=== PATIENT | female | born 1995 | race Caucasian/White ===

== ENCOUNTER → 2016-11-21 | Outpatient (CLI) | payer MEDICAID ==
[~2016-11-21] MED LIST: ACHD5005 PO; ALBU8.5H2 IH; CEFU500T PO; CEPH500C PO; FERR325T74 PO; HYDR-3729 PO; IBP600T1 PO; IBUP-1773 PO; IRON1TAB89 PO; MAGN250T13 PO; MAGN400T6 PO; MEDR150D8 IM; METO-270 PO; METO-272 PO; ONDA-42 SL; ONDA8TAB13 PO; OXYC-12 PO; PENI500T PO; PHEN200T27 PO; PREN-37 PO; PREN1TAB39 PO; PRM25T PO; TRAM50TA2 PO
--- OUTSIDE RECORDS SUMMARY | 2016-11-21 12:24 | XMS REPORT | Continuity of Care Document ---
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 Frame Nailer Name Role Phone JESÚS ARTEAGA Benjy SURESH PCP Insurance Providers Payer Name Policy Number Subscriber Name Relationship [facility] [id number] Ortiz Vann 18 Self / Same As Patient Advance Directives Directive Response Recorded Date/Time Advance Directives No 02/02/15 4:40am Resuscitation Status Full Code 02/02/15 4:40am Problems Medical Problems Problem Onset Date Status Urinary tract infection Unknown Active Unknown Active Hyperemesis Unknown Active Abdominal pain in female patient Unknown Active Spontaneous in first trimester Unknown Active Spontaneous in first trimester Unknown Active Pelvic pain Unknown Active Vaginal bleeding Unknown Active Pelvic pain Unknown Active Medications Medication Dose Route Sig Days/Qty Instructions Order Date Discontinued Date Status Vits W-Ca,Fe,Fa(<1MG) 1 Each PO 09/22/11 03/28/14 Discontinued Ferrous Sulfate 325 Mg PO 09/22/11 11/01/14 Discontinued Oxycodone Hcl/Acetaminophen 1 - 2 Each PO EVERY 4HRS PRN 01/01/12 Discontinued Ibuprofen 600 Mg PO GIVE EVERY 6 HR ON SCHEDULE PRN 01/01/12 Discontinued Albuterol 1 Puff IH EVERY 4HRS PRN SHORTNESS OF BREATH 1 PUFFS Active Ondansetron 8 Mg PO EVERY 6 HOURS PRN NAUSEA/VOMITING 10 Qty 03/28/14 11/01/14 Discontinued Tramadol Hcl 50 Mg PO EVERY 4HRS PRN PAIN 10 Qty 03/28/14 11/01/14 Discontinued Cephalexin Monohydrate (Keflex) 1 Each PO THREE TIMES A DAY 21 Qty 11/01/14 Discontinued Promethazine Hcl 1 Tab PO FOUR TIMES DAILY PRN NAUSEA/VOMITING 14 Qty 10/29/14 11/01/14 Discontinued Ibuprofen 600 Mg PO GIVE EVERY 6 HR ON SCHEDULE 40 Qty 11/01/14 Discontinued Hydrocodone/Acetaminophen 1 Each PO EVERY 6 HOURS For Pain 15 Qty 11/0102/02/15 Discontinued Penicillin V Potassium 1 Tab PO THREE TIMES A DAY 30 Qty 11/01/14 Discontinued Phenazopyridine HCl 1 Each PO THREE TIMES A DAY 9 Qty 11/01/14 Discontinued Tramadol Hcl 50-100 Mg PO EVERY 6 HOURS PRN PAIN 20 Qty 11/08/1402/02 Discontinued Medroxyprogesterone Acet 150 Mg IM 02/02/15 Active Acetaminophen/Hydrocodone Bitart (Hydrocodone/APAP 5/325mg) 1-2 Tab PO EVERY 6 HOURS PRN PAIN 30 Qty 02/02/15 Active Ondansetron Hcl 4 Mg SL EVERY 4HRS PRN 10 Qty 02/02/15 Active Social History Social History Problem Response Recorded Date/Time Alcohol Use Denies Use 02/02/2015 4:40am Recreational Drug Use No 02/02/2015 4:40am Recent Foreign Travel No 02/02/2015 4:40am Recent Infectious Disease Exposure No 02/02/2015 4:40am Smoking Status Never a Smoker 02/02/2015 4:40am Query Response Start Date Stop Date Smoking Status Never a Smoker Hospital Discharge Instructions No hospital discharge instructions. Plan of Care No plan of care. Functional Status No functional status results. Allergies, Adverse Reactions, Alerts Allergen Type Severity Reaction Status Last Updated jordon ([id number]) Allergy Mild Active 12/30/11 Immunizations Name Given Type Date of Influenza Vaccine 07/06/11 Historical Vital Signs Acute Vital Signs Vital Response Date/Time Temperature (Fahrenheit) 96.6 degrees F (97.6 - 99.5) Temperature Source Temporal Pulse Rate (adult) 100 bpm (60 - 90) Pulse Rate (Adolescent 12-19yrs) 66 bpm (56 - 106) Respiratory Rate (Adolescent 12-19yrs) 16 bpm (15 - 20) Blood Pressure 98/73 mm Hg Blood Pressure Systolic (Adolescent 12-19yrs) 118 mm Hg (115 - 120) Pain Pain Intensity 2 Height (Feet) 5 feet Height (Inches) 4 inches Height (Calculated Centimeters) 162.796416 cm Weight (Pounds) 140 pounds Weight (Calculated Grams) 54590.932 gm Weight (Calculated Kilograms) 63.985996 kilograms Calculated BMI 24.03 Results Laboratory Results Test Name Result Units Flags Reference Collection Date/Time Result Date/ Time Comments Urine Color YELLOW 01/13/2015 10:20pm 01/13/2015 10:55pm Urine Clarity CLEAR 01/13/2015 10:20pm 01/13/2015 10:55pm Urine pH 7 5-9 01/13/2015 10:20pm 01/13/2015 10:55pm Urine Specific [place] 1.010 * 1.016-1.022 01/13/2015 10:20pm 2014 10:55pm Urine Protein NEGATIVE NEGATIVE 01/13/2015 10:20pm 01/13/2015 10: 55pm Urine Glucose (UA) NEGATIVE NEGATIVE 01/13/2015 10:20pm 01/13/2015 10 :55pm Urine RBC (Auto) 5+ * NEGATIVE 01/13/2015 10:20pm 01/13/2015 10:55pm Urine Ketones NEGATIVE NEGATIVE 01/13/2015 10:20pm 01/13/2015 10: 55pm Urine Nitrite NEGATIVE NEGATIVE 01/13/2015 10:20pm 01/13/2015 10: 55pm Urine Bilirubin NEGATIVE NEGATIVE 01/13/2015 10:20pm 01/13/2015 10: 55pm Urine Urobilinogen NORMAL MG/DL NORMAL 01/13/2015 10:20pm 01/13/2015 10 :55pm Urine Leukocyte Esterase 1+ * NEGATIVE 01/13/2015 10:20pm 01/13/2015 10 :55pm Urine RBC 2-5 /HPF * 01/13/2015 10:20pm 01/13/2015 10:55pm Urine WBC 10-25 /HPF * 01/13/2015 10:20pm 01/13/2015 10:55pm Urine Bacteria TRACE /HPF 01/13/2015 10:20pm 01/13/2015 10:55pm Urine Squamous Epithelial Cells 5-10 /HPF 01/13/2015 10:20pm 2014 10:55pm Urine Crystals NONE /LPF 01/13/2015 10:20pm 01/13/2015 10:55pm Urine Casts NONE /LPF 01/13/2015 10:20pm 01/13/2015 10:55pm Urine Mucus NEGATIVE /LPF 01/13/2015 10:20pm 01/13/2015 10:55pm Urine Culture Indicated YES 01/13/2015 10:20pm 01/13/2015 10:55pm White Blood Count 10.4 10^3/uL 4.3-11.0 02/02/2015 5:02/02/2015 5: 34am Red Blood Count 4.63 10^6/uL 4.35-5.85 02/02/2015 5:02/02/2015 5: 34am Hemoglobin 13.3 G/DL 11.5-16.0 02/02/2015 5:02/02/2015 5:34am Hematocrit 39 % 35-52 02/02/2015 5:02/02/2015 5:34am Mean Corpuscular Volume 84 FL 80-99 02/02/2015 5:02/02/2015 5: 34am Mean Corpuscular Hemoglobin 29 PG 25-34 02/02/2015 5:02/02/2015 5: 34am Mean Corpuscular Hemoglobin Concent 34 G/DL 32-36 02/02/2015 5: 5:34am Red Cell Distribution Width 12.9 % 10.0-14.5 02/02/2015 5:2014 5:34am Platelet Count 277 10^3/uL 130-400 02/02/2015 5:02/02/2015 5:34am Mean Platelet Volume 10.5 FL H 7.4-10.4 02/02/2015 5:02/02/2015 5: 34am Neutrophils (%) (Auto) 84 % H 42-75 02/02/2015 5:02/02/2015 5:34am Lymphocytes (%) (Auto) 13 % 12-44 02/02/2015 5:02/02/2015 5:34am Monocytes (%) (Auto) 2 % 0-12 02/02/2015 5:02/02/2015 5:34am Eosinophils (%) (Auto) 1 % 0-10 02/02/2015 5:02/02/2015 5:34am Basophils (%) (Auto) 0 % 0-10 02/02/2015 5:02/02/2015 5:34am Neutrophils # (Auto) 8.8 X 10^3 H 1.8-7.8 02/02/2015 5:02/02/2015 5: 34am Lymphocytes # (Auto) 1.4 X 10^3 1.0-4.0 02/02/2015 5:02/02/2015 5: 34am Monocytes # (Auto) 0.2 X 10^3 0.0-1.0 02/02/2015 5:02/02/2015 5: 34am Eosinophils # (Auto) 0.1 10^3/uL 0.0-0.3 02/02/2015 5:02/02/2015 5 :34am Basophils # (Auto) 0.0 10^3/uL 0.0-0.1 02/02/2015 5:02/02/2015 5: 34am Urine Color YELLOW 02/02/2015 6:02/02/2015 6:34am Urine Clarity SLIGHTLY CLOUDY 02/02/2015 6:02/02/2015 6:34am Urine pH 5 5-9 02/02/2015 6:02/02/2015 6:34am Urine Specific [place] 1.025 * 1.016-1.022 02/02/2015 6:2014 6:34am Urine Protein 2+ * NEGATIVE 02/02/2015 6:02/02/2015 6:34am Urine Glucose (UA) NEGATIVE NEGATIVE 02/02/2015 6:0702/02/2015 6: 34am Urine RBC (Auto) 5+ * NEGATIVE 02/02/2015 6:0702/02/2015 6:34am Urine Ketones NEGATIVE NEGATIVE 02/02/2015 6:07am 02/02/2015 6:34am Urine Nitrite NEGATIVE NEGATIVE 02/02/2015 6:0702/02/2015 6:34am Urine Bilirubin NEGATIVE NEGATIVE 02/02/2015 6:0702/02/2015 6: 34am Urine Urobilinogen NORMAL MG/DL NORMAL 02/02/2015 6:0702/02/2015 6: 34am Urine Leukocyte Esterase 1+ * NEGATIVE 02/02/2015 6:0702/02/2015 6: 34am Urine RBC 25-50 /HPF * 02/02/2015 6:07am 02/02/2015 6:34am Urine WBC 2-5 /HPF 02/02/2015 6:07am 02/02/2015 6:34am Urine Bacteria NONE /HPF 02/02/2015 6:07am 02/02/2015 6:34am Urine Squamous Epithelial Cells 2-5 /HPF 02/02/2015 6:07am 2014 6:34am Urine Crystals PRESENT /LPF * 02/02/2015 6:0702/02/2015 6:34am Urine Amorphous Sediment FEW RICKIE URATES /LPF * 02/02/2015 6:07am 02/02 6:34am Urine Casts NONE /LPF 02/02/2015 6:0702/02/2015 6:34am Urine Mucus MODERATE /LPF * 02/02/2015 6:07am 02/02/2015 6:34am Urine Culture Indicated NO 02/02/2015 6:0702/02/2015 6:34am Sodium Level 137 MMOL/L 135-145 02/02/2015 5:23am 02/02/2015 5:52am Potassium Level 4.0 MMOL/L 3.6-5.0 02/02/2015 5:23am 02/02/2015 5:52am Chloride Level 106 MMOL/L 98-107 02/02/2015 5:23am 02/02/2015 5:52am Carbon Dioxide Level 21 MMOL/L 21-32 02/02/2015 5:02/02/2015 5: 52am Blood Urea Nitrogen 8 MG/DL 7-18 02/02/2015 5:02/02/2015 5:52am Creatinine 0.69 MG/DL 0.60-1.30 02/02/2015 5:02/02/2015 5:52am BUN/Creatinine Ratio 12 02/02/2015 5:02/02/2015 5:52am Estimat Glomerular Filtration Rate > 60 02/02/2015 5:2014 5:52am GFR INTERPRETIVE DATA UNITS FOR ESTIMATED GFR (eGFR): mL/min/1.73 M2 REFERENCE RANGE FOR ESTIMATED GFR (eGFR) eGFR NORMAL eGFR >60 MODERATELY DECREASED eGFR 30-59 SEVERLY DECREASED eGFR 15-29 KIDNEY FAILURE <15 (OR DIALYSIS) Glucose Level 116 MG/DL H 70-105 02/02/2015 5:02/02/2015 5:52am Calcium Level 10.1 MG/DL 8.5-10.1 02/02/2015 5:02/02/2015 5:52am Total Bilirubin 0.4 MG/DL 0.1-1.0 02/02/2015 5:02/02/2015 5:52am Alkaline Phosphatase 65 U/L 40-136 02/02/2015 5:02/02/2015 5:52am Aspartate Amino Transf (AST/SGOT) 33 U/L 5-34 02/02/2015 5:2014 5:52am Alanine Aminotransferase (ALT/SGPT) 14 U/L 0-55 02/02/2015 5:02/02 5:52am Total Protein 8.2 G/DL 6.4-8.2 02/02/2015 5:02/02/2015 5:52am Albumin 4.9 G/DL H 3.2-4.5 02/02/2015 5:02/02/2015 5:52am Procedures No known history of procedures. Encounters Encounter Location Date/Time Departed Emergency Room Via [facility] 02/02/15 4:30am Departed Emergency Room Via [facility] 01/13/15 10:01pm Recent Diagnosis
== END ==
LOC: CARD 12:21
PROVIDERS: ATTEND Obstetrics & Gynecology
DX: O36.8931 Maternal care for other specified fetal problems, third trimester, fetus 1 (principal)
CPT/HCPCS: 93005

== ENCOUNTER → 2016-12-05 | Outpatient (CLI) | payer MEDICAID ==
--- OUTSIDE RECORDS SUMMARY | 2016-12-05 11:39 | XMS REPORT | Continuity of Care Document ---
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 Philosophy Lecturer Name Role Phone JESÚS ARTEAGA Benjy SURESH PCP Insurance Providers Payer Name Policy Number Subscriber Name Relationship [facility] [id number] Ortiz Vann 18 Self / Same As [...] Type Severity Reaction Status Last Updated jordon ([id number]) Allergy Mild Active 12/30/11 Immunizations Name Given [...] Height (Inches) 4 inches Height (Calculated Centimeters) 162.305427 cm Weight (Pounds) 140 pounds Weight (Calculated Grams) 02319.932 gm Weight (Calculated Kilograms) 63.286521 kilograms Calculated BMI 24.03 Results Laboratory Results Test Name Result Units Flags Reference Collection Date/Time Result Date/ Time Comments Urine Color YELLOW 01/13/2015 10:20pm 01/13/2015 10:55pm Urine Clarity CLEAR 01/13/2015 10:20pm 01/13/2015 10:55pm Urine pH 7 5-9 01/13/2015 10:20pm 01/13/2015 10:55pm Urine Specific [place] 1.010 * 1.016-1.022 01/13/2015 10:20pm 2014 10:55pm [...] 5 5-9 02/02/2015 6:02/02/2015 6:34am Urine Specific [place] 1.025 * 1.016-1.022 02/02/2015 6:2014 6:34am Urine [...] Encounter Location Date/Time Departed Emergency Room Via [facility] 02/02/15 4:30am Departed Emergency Room Via [facility] 01/13/15 10:01pm Recent Diagnosis
== END ==
LOC: LAB 11:08
PROVIDERS: ATTEND Internal Medicine Cardiovascular Disease
DX: R00.2 Palpitations (principal); R06.02 Shortness of breath
CPT/HCPCS: 36415; 84443

== ENCOUNTER → 2016-12-11 | Outpatient (CLI) | payer MEDICAID ==
--- OUTSIDE RECORDS SUMMARY | 2016-12-11 08:51 | XMS REPORT | Continuity of Care Document ---
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 Prototype Engineer Name Role Phone JESÚS ARTEAGA Benjy SURESH PCP Insurance Providers Payer Name Policy Number Subscriber Name Relationship [facility] [id number] Ortiz Vann 18 Self / Same As [...] Type Severity Reaction Status Last Updated jordon ([id number]) Allergy Mild Active 12/30/11 Immunizations Name Given [...] Height (Inches) 4 inches Height (Calculated Centimeters) 162.243394 cm Weight (Pounds) 140 pounds Weight (Calculated Grams) 78633.932 gm Weight (Calculated Kilograms) 63.923936 kilograms Calculated BMI 24.03 Results Laboratory Results Test Name Result Units Flags Reference Collection Date/Time Result Date/ Time Comments Urine Color YELLOW 01/13/2015 10:20pm 01/13/2015 10:55pm Urine Clarity CLEAR 01/13/2015 10:20pm 01/13/2015 10:55pm Urine pH 7 5-9 01/13/2015 10:20pm 01/13/2015 10:55pm Urine Specific [place] 1.010 * 1.016-1.022 01/13/2015 10:20pm 2014 10:55pm [...] 5 5-9 02/02/2015 6:02/02/2015 6:34am Urine Specific [place] 1.025 * 1.016-1.022 02/02/2015 6:2014 6:34am Urine [...] Encounter Location Date/Time Departed Emergency Room Via [facility] 02/02/15 4:30am Departed Emergency Room Via [facility] 01/13/15 10:01pm Recent Diagnosis
== END ==
LOC: CARD 08:48
PROVIDERS: ATTEND Internal Medicine Cardiovascular Disease
DX: R00.2 Palpitations (principal); R06.02 Shortness of breath
CPT/HCPCS: 93225; 93226

== ENCOUNTER 2016-12-12 22:04 | Observation (INO) | payer MEDICAID ==
[~2016-12-12] VITALS: Ht 162.6 cm; Wt 74.8 kg
[~2016-12-12 22:04] MED LIST changes: -IBUP-1773 PO; -IRON1TAB89 PO; -MAGN250T13 PO; -MAGN400T6 PO; -METO-270 PO; -METO-272 PO; -PREN-37 PO
--- OUTSIDE RECORDS SUMMARY | 2016-12-12 22:09 | XMS REPORT | Continuity of Care Document ---
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 Microfiche Camera Operator Name Role Phone JESÚS ARTEAGA Benjy SURESH PCP Insurance Providers Payer Name Policy Number Subscriber Name Relationship [facility] [id number] Ortiz Vann 18 Self / Same As [...] Type Severity Reaction Status Last Updated jordon ([id number]) Allergy Mild Active 12/30/11 Immunizations Name Given [...] Height (Inches) 4 inches Height (Calculated Centimeters) 162.736487 cm Weight (Pounds) 140 pounds Weight (Calculated Grams) 45959.932 gm Weight (Calculated Kilograms) 63.786895 kilograms Calculated BMI 24.03 Results Laboratory Results Test Name Result Units Flags Reference Collection Date/Time Result Date/ Time Comments Urine Color YELLOW 01/13/2015 10:20pm 01/13/2015 10:55pm Urine Clarity CLEAR 01/13/2015 10:20pm 01/13/2015 10:55pm Urine pH 7 5-9 01/13/2015 10:20pm 01/13/2015 10:55pm Urine Specific [place] 1.010 * 1.016-1.022 01/13/2015 10:20pm 2014 10:55pm [...] 5 5-9 02/02/2015 6:02/02/2015 6:34am Urine Specific [place] 1.025 * 1.016-1.022 02/02/2015 6:2014 6:34am Urine [...] Encounter Location Date/Time Departed Emergency Room Via [facility] 02/02/15 4:30am Departed Emergency Room Via [facility] 01/13/15 10:01pm Recent Diagnosis
[2016-12-12 22:32] VITALS: BP 102/68
[2016-12-12 23:03] LABS: BASOPHILS % (AUTO) 0 % (0-10); EOSINOPHILS # (AUTO) 0.1 10^3/uL (0.0-0.3); EOSINOPHILS % (AUTO) 1 % (0-10); LYMPHOCYTES # (AUTO) 2.7 X 10^3 (1.0-4.0); LYMPHOCYTES % (AUTO) 26 % (12-44); MEAN CORPUSCULAR HEMOGLOBIN 31 PG (25-34); MEAN CORPUSCULAR HGB CONC 34 G/DL (32-36); MEAN CORPUSCULAR VOLUME 91 FL (80-99); MEAN PLATELET VOLUME 10.4 FL (7.4-10.4); MONOCYTES # (AUTO) 0.5 X 10^3 (0.0-1.0); MONOCYTES % (AUTO) 5 % (0-12); NEUTROPHILS # (AUTO) 7.1 X 10^3 (1.8-7.8); NEUTROPHILS % (AUTO) 68 % (42-75); PLATELET COUNT 252 10^3/uL (130-400); RED BLOOD COUNT 3.42 10^6/uL (4.35-5.85); RED CELL DISTRIBUTION WIDTH 13.8 % (10.0-14.5); WHITE BLOOD COUNT 10.5 10^3/uL (4.3-11.0)
[2016-12-12] MEDS ORDERED: PREN-37 PO (23:05)
[2016-12-12] MEDS ORDERED: IRON1TAB89 PO (23:06)
[2016-12-12] MEDS ORDERED: MAGN250T13 PO (23:07)
[2016-12-12 23:27] LABS: ALANINE AMINOTRANSFERASE 8 U/L (0-55); ALBUMIN 3.5 G/DL (3.2-4.5); ANION GAP 10 MMOL/L (5-14); ASPARTATE AMINO TRANSFERASE 24 U/L (5-34); BILIRUBIN,TOTAL 0.4 MG/DL (0.1-1.0); BLOOD UREA NITROGEN 5 MG/DL (7-18); BUN/CREATININE RATIO 9; CALCIUM 8.7 MG/DL (8.5-10.1); CARBON DIOXIDE 19 MMOL/L (21-32); CHLORIDE 107 MMOL/L (98-107); CREATININE SERUM 0.58 MG/DL (0.60-1.30); GFR ESTIMATED > 60; GLUCOSE 88 MG/DL (70-105); MAGNESIUM 1.8 MG/DL (1.8-2.4); POTASSIUM 3.9 MMOL/L (3.6-5.0); SODIUM 136 MMOL/L (135-145); TOTAL PROTEIN 6.2 G/DL (6.4-8.2)
[2016-12-13 00:50] VITALS: BP 97/59
[2016-12-13 05:05] VITALS: BP 100/64
[2016-12-13] MEDS ORDERED: FLU TRIvalent (5 YOA+) 2016-17 (AFLURIA) 0.5 ML IM ONE (07:00)
[2016-12-13 08:00] VITALS: BP 104/70
--- NOTE | 2016-12-13 08:13 | History & Physical-OB ---
OB - Chief Complaint & HPI Date Date of Admission: Date of Admission: Dec 12, 2016 at 22:04 Chief Complaint/History OB-Reason for Admission/Chief: spontaneous v tach Hx : 4 Hx Para: 1 Expected Date of Delivery: Jan 27, 2017 Gestational Age in Weeks: 33 Admission Nurse Assessment Rev: Yes Other Patient is a at 33 weeks. She was complaining in the office of palpitations and dyspnea. EKG showed sinus rhythm. She was sent to see Dr. Bruno for evaluation. Had a Holter monitor read last night and Dr. Bruno was notified of episodes of sustained V tach. He recommended admission for telemetry and overnight evaluation. CMP, BNP and Mg done and were normal. Had echo yesterday but not yet read. Dr. Bruno will see her today but she will likely require evaluation by [facility] and referred to a [facility] tertiary care center where there is an EP physician. (Possibly [facility]). Laboratory Tests Test 12/12/16 22:47 Range/Units Alanine Aminotransferase (ALT/SGPT) 8 0-55 U/L Albumin 3.5 3.2-4.5 G/DL Alkaline Phosphatase 104 40-136 U/L Anion Gap 10 5-14 MMOL/L Aspartate Amino Transf (AST/SGOT) 24 5-34 U/L B-Type Natriuretic Peptide 16.2 <100.0 PG/ML BUN/Creatinine Ratio 9 Basophils # (Auto) 0.0 0.0-0.1 10^3/uL Basophils (%) (Auto) 0 0-10 % Blood Urea Nitrogen 5 L 7-18 MG/DL Calcium Level 8.7 8.5-10.1 MG/DL Carbon Dioxide Level 19 L 21-32 MMOL/L Chloride Level 107 98-107 MMOL/L Creatinine 0.58 L 0.60-1.30 MG/DL Eosinophils # (Auto) 0.1 0.0-0.3 10^3/uL Eosinophils (%) (Auto) 1 0-10 % Estimat Glomerular Filtration Rate > 60 Glucose Level 88 70-105 MG/DL Hematocrit 31 L 35-52 % Hemoglobin 10.6 L 11.5-16.0 G/DL Lymphocytes # (Auto) 2.7 1.0-4.0 X 10^3 Lymphocytes (%) (Auto) 26 12-44 % Magnesium Level 1.8 1.8-2.4 MG/DL Mean Corpuscular Hemoglobin 31 25-34 PG Mean Corpuscular Hemoglobin Concent 34 32-36 G/DL Mean Corpuscular Volume 91 80-99 FL Mean Platelet Volume 10.4 7.4-10.4 FL Monocytes # (Auto) 0.5 0.0-1.0 X 10^3 Monocytes (%) (Auto) 5 0-12 % Neutrophils # (Auto) 7.1 1.8-7.8 X 10^3 Neutrophils (%) (Auto) 68 42-75 % Platelet Count 252 130-400 10^3/uL Potassium Level 3.9 3.6-5.0 MMOL/L Red Blood Count 3.42 L 4.35-5.85 10^6/uL Red Cell Distribution Width 13.8 10.0-14.5 % Sodium Level 136 135-145 MMOL/L Total Bilirubin 0.4 0.1-1.0 MG/DL Total Protein 6.2 L 6.4-8.2 G/DL White Blood Count 10.5 4.3-11.0 10^3/uL Allergies and Home Medications Allergies Coded Allergies: guaifenesin (Verified Allergy, Mild, 12/30/11) Home Medications Iron,Carbonyl/Ascorbic Acid 1 Each Tablet 1 EACH PO DAILY (Reported) Magnesium Oxide 250 Mg Tablet 250 MG PO DAILY (Reported) Vit/Iron Fumarate/FA 1 Each Tablet 1 EACH PO DAILY (Reported) OB - History Hx of Present Care: Yes Ultrasounds: Normal mid trimester US Obstetrical Complications: None Medical Complications: Cardiovascular Information Induced Hypertension: No Maternal Gestational Diabetes: No Hemorrhage: No Obstetrical History Hx : 4 Hx Para: 1 Hx Termination: No Hx Total # of Abortions (Spona: 2 Hx Multiple Gestation: No Hx Stillbirth: No Hx Complication: No Hx Induced Hypertens: No Hx Maternal Gestational Diabet: No Delivery History Hx Dystocia: No Hx Large For Gestational Age I: No Hx Small for Gestational Age I: No Hx Section: No Hx Vaginal Delivery Post C-Sec: No Hx Blood Disorders: No Adverse Rxn to Tranfusion: No Patient Past Medical History NC Social History/Family History Recent Infectious Disease Expo: No Alcohol Use: Regular Use (prior to but none since + HCG) Smoking Cessation: Former smoker (quit 2010) Immunizations Date of Influenza Vaccine: Jul 06, 2011 OB - Admission Exam Physical Exam Vitals: Vital Signs 12/13/16 05:05 Temp 97.4 Pulse 100 Resp 18 B/P 100/64 Pulse Ox 97 O2 Delivery Room Air HEENT: NCAT Heart: Rhythm Normal Lungs: Clear, Equal Abdomen: Gravid Heart Rate: 140's Accelerations: Accelerations Present Decelerations: No Decelerations Short Term Variability: Present Netezza Architect Variability: Average (6-25) Contractions on Admission: None Labs Laboratory Tests Test 12/12/16 22:47 Range/Units Alanine Aminotransferase (ALT/SGPT) 8 0-55 U/L Albumin 3.5 3.2-4.5 G/DL Alkaline Phosphatase 104 40-136 U/L Anion Gap 10 5-14 MMOL/L Aspartate Amino Transf (AST/SGOT) 24 5-34 U/L B-Type Natriuretic Peptide 16.2 <100.0 PG/ML BUN/Creatinine Ratio 9 Basophils # (Auto) 0.0 0.0-0.1 10^3/uL Basophils (%) (Auto) 0 0-10 % Blood Urea Nitrogen 5 L 7-18 MG/DL Calcium Level 8.7 8.5-10.1 MG/DL Carbon Dioxide Level 19 L 21-32 MMOL/L Chloride Level 107 98-107 MMOL/L Creatinine 0.58 L 0.60-1.30 MG/DL Eosinophils # (Auto) 0.1 0.0-0.3 10^3/uL Eosinophils (%) (Auto) 1 0-10 % Estimat Glomerular Filtration Rate > 60 Glucose Level 88 70-105 MG/DL Hematocrit 31 L 35-52 % Hemoglobin 10.6 L 11.5-16.0 G/DL Lymphocytes # (Auto) 2.7 1.0-4.0 X 10^3 Lymphocytes (%) (Auto) 26 12-44 % Magnesium Level 1.8 1.8-2.4 MG/DL Mean Corpuscular Hemoglobin 31 25-34 PG Mean Corpuscular Hemoglobin Concent 34 32-36 G/DL Mean Corpuscular Volume 91 80-99 FL Mean Platelet Volume 10.4 7.4-10.4 FL Monocytes # (Auto) 0.5 0.0-1.0 X 10^3 Monocytes (%) (Auto) 5 0-12 % Neutrophils # (Auto) 7.1 1.8-7.8 X 10^3 Neutrophils (%) (Auto) 68 42-75 % Platelet Count 252 130-400 10^3/uL Potassium Level 3.9 3.6-5.0 MMOL/L Red Blood Count 3.42 L 4.35-5.85 10^6/uL Red Cell Distribution Width 13.8 10.0-14.5 % Sodium Level 136 135-145 MMOL/L Total Bilirubin 0.4 0.1-1.0 MG/DL Total Protein 6.2 L 6.4-8.2 G/DL White Blood Count 10.5 4.3-11.0 10^3/uL OB - Assessment/Plan/Diagnosis Assessment Assessment: other Plan Other Plan 1. 33 week intrauterine 2. Sustained ventricular tachycardia, await results of echocardiogram from Dr. Crockett. However he has suggested consideration of transferring to a higher tertiary care center if needed. She has been admitted for monitoring and labs. Her labs including electrolytes are normal except magnesium which is borderline low 3. Hypomagnesemia - replacement started. FLIP ESPARZA DO Dec 13, 2016 08:12
--- NOTE | 2016-12-13 08:44 | Consultation-Cardiology ---
HPI-Cardiology Cardiology Consultation Date of Consultation 12/13/16 Date of Admission Indication: ventricular tachycardia HPI 21-year-old lady with no significant past medical history, 33 weeks , seen in my office for recurrent palpitation and shortness of breath, reporting that she has been feeling her heart rate going around 130-140, noted that her shortness of breath has been worse, this is her second , on her previous did not have any problems. She was not initiated on any medication, had a Holter monitor and echocardiogram done as an outpatient, her Holter monitor showed one episode of sustained ventricular tachycardia with variable intervals, occurred at 456 p.m., patient was asymptomatic, denied any palpitation, dizziness, shortness of breath during that episode. I discussed with Dr. Soares and we decided to admit her and monitor her. Echocardiogram was done yesterday and it was normal. On telemetry overnight she had few episode of sinus tachycardia and no other arrhythmia was noted. Home Medications & Allergies Allergies: Coded Allergies: guaifenesin (Verified Allergy, Mild, 12/30/11) Home Medication List Reviewed: Yes LQJ-Fwrrht-Ypecyi Hx Patient Social History Smoking Status: Former Smoker Recent Foreign Travel: No Recent Infectious Disease Expo: No Recent Hopitalizations: Yes (nora francisco as child, uvulitis 2003, ) Physical Abuse Screen: No Sexual Abuse: No Immunizations Up To Date Date of Influenza Vaccine: Jul 06, 2011 Past Medical History no known past medical history Family Medical History Family Medical Hx noncontributory to her current condition Constitutional: no symptoms reported see HPI EENTM: no symptoms reported see HPI Respiratory: see HPINo cough, dyspnea on exertionNo hemoptysis, No orthopnea , No phlegm, short of breathNo stridor, No wheezing, No other Cardiovascular: see HPINo chest pain, No edema, No Hx of Intervention, palpitationsNo syncope, No vascular heart diseas, No other Gastrointestinal: no symptoms reported see HPI Genitourinary: no symptoms reported see HPI Musculoskeletal: no symptoms reported see HPI Skin: no symptoms reported see HPI Psychiatric/Neurological: No Symptoms Reported See HPI Reviewed Test Results Reviewed Test Results Lab Laboratory Tests Test 12/12/16 22:47 Range/Units Alanine Aminotransferase (ALT/SGPT) 8 0-55 U/L Albumin 3.5 3.2-4.5 G/DL Alkaline Phosphatase 104 40-136 U/L Anion Gap 10 5-14 MMOL/L Aspartate Amino Transf (AST/SGOT) 24 5-34 U/L B-Type Natriuretic Peptide 16.2 <100.0 PG/ML BUN/Creatinine Ratio 9 Basophils # (Auto) 0.0 0.0-0.1 10^3/uL Basophils (%) (Auto) 0 0-10 % Blood Urea Nitrogen 5 L 7-18 MG/DL Calcium Level 8.7 8.5-10.1 MG/DL Carbon Dioxide Level 19 L 21-32 MMOL/L Chloride Level 107 98-107 MMOL/L Creatinine 0.58 L 0.60-1.30 MG/DL Eosinophils # (Auto) 0.1 0.0-0.3 10^3/uL Eosinophils (%) (Auto) 1 0-10 % Estimat Glomerular Filtration Rate > 60 Glucose Level 88 70-105 MG/DL Hematocrit 31 L 35-52 % Hemoglobin 10.6 L 11.5-16.0 G/DL Lymphocytes # (Auto) 2.7 1.0-4.0 X 10^3 Lymphocytes (%) (Auto) 26 12-44 % Magnesium Level 1.8 1.8-2.4 MG/DL Mean Corpuscular Hemoglobin 31 25-34 PG Mean Corpuscular Hemoglobin Concent 34 32-36 G/DL Mean Corpuscular Volume 91 80-99 FL Mean Platelet Volume 10.4 7.4-10.4 FL Monocytes # (Auto) 0.5 0.0-1.0 X 10^3 Monocytes (%) (Auto) 5 0-12 % Neutrophils # (Auto) 7.1 1.8-7.8 X 10^3 Neutrophils (%) (Auto) 68 42-75 % Platelet Count 252 130-400 10^3/uL Potassium Level 3.9 3.6-5.0 MMOL/L Red Blood Count 3.42 L 4.35-5.85 10^6/uL Red Cell Distribution Width 13.8 10.0-14.5 % Sodium Level 136 135-145 MMOL/L Total Bilirubin 0.4 0.1-1.0 MG/DL Total Protein 6.2 L 6.4-8.2 G/DL White Blood Count 10.5 4.3-11.0 10^3/uL Physical Exam Vital Signs Vital Sign - Last 12Hours 12/12/16 22:32 Temp 97.4 Pulse 98 Resp 18 B/P 102/68 Pulse Ox 98 O2 Delivery Room Air Capillary Refill : General Appearance: No Apparent Distress WD/WN Eyes: Bilateral Eye EOMI, Bilateral Eye Normal Inspection, Bilateral Eye PERRL HEENT: PERRL/EOMI TMs Normal Normal ENT Inspection Pharynx Normal Neck: Full Range of Motion Normal Inspection Non Tender Supple Carotid Bruit Respiratory: Chest Non Tender Lungs Clear Normal Breath Sounds No Accessory Muscle Use No Respiratory Distress Cardiovascular: Regular Rate, Rhythm No Edema No Gallop No JVD No Murmur Normal Peripheral Pulses Gastrointestinal: Normal Bowel Sounds No Organomegaly No Pulsatile Mass Non Tender Soft Other () Back: Normal Inspection No CVA Tenderness No Vertebral Tenderness Extremity: Normal Capillary Refill Normal Inspection Normal Range of Motion Non Tender No Calf Tenderness Pedal Edema Neurologic/Psychiatric: Alert Oriented x3 No Motor/Sensory Deficits Normal Mood/Affect Skin: Normal Color Warm/Dry Lymphatic: No Adenopathy A/P-Cardiology Admission Diagnosis Ventricular tachycardia Palpitation Shortness of breath Assessment/Plan Sustained ventricular tachycardia, noted incidentally on Holter monitor, patient has been having increasing palpitation, variable intervals. I will start her on low-dose beta blockers and evaluate her tolerance and response. Electrolytes were normal although magnesium was on the lower normal level, I will start magnesium replacement. Recurrent palpitation, continue to monitor on telemetry for now. Shortness of breath , 33 weeks. MARTHA ROJAS MD Dec 13, 2016 08:44
[2016-12-13 15:35] VITALS: BP 97/62
--- NOTE | 2016-12-13 17:09 | Diagnostic Imaging Report ---
INDICATION: Medication use. Third trimester . COMPARISON: 08/02/2016. FINDINGS: There is single live intrauterine fetus. Fetus is vertex. Placenta is anterior, estimated grade 2. No abruption or previa. Amniotic fluid index is 14 cm. heart rate of 133 beats per minute. biometric measurements are BPD 8.6 cm, head circumference 31.8 cm, femur length 6.7 cm, abdominal circumference 30.6 cm. Estimated weight of 2505 g. The fetus is active. Good tone was demonstrated. IMPRESSION: 1. Single live intrauterine fetus at 33 weeks 3 days gestation by previous ultrasound. Fetus measures 35 weeks average on today's exam. 2. biophysical profile is normal. Dictated by: Dictated on workstation # [id number]
[2016-12-13] MEDS: MAGNESIUM OXIDE (MAG-OX)400 MG TAB PO SCH (18:26)
[2016-12-13 20:17] VITALS: BP 107/69
[2016-12-14 00:50] VITALS: BP 99/60
[2016-12-14 05:40] VITALS: BP 99/64
[2016-12-14 08:56] VITALS: BP 110/73
[2016-12-14] MEDS: MAGNESIUM OXIDE (MAG-OX)400 MG TAB PO SCH (09:50)
--- NOTE | 2016-12-14 11:22 | Progress Note-Standard ---
Standard Progress Note Progress Notes/Assess & Plan Progress/Assessment & Plan Pulse < 100. No runs of V tach. Patient reports one episode of SOB but not severe and no pain. No palpitations. BPP 8/8. NST reactive. Growth scan adequate with nl MELONIE. Will dc home if ok per cardiology on metoprolol. Follow up as scheduled. Will need to follow up with Dr. Bruno. VS - Last 72 Hours, by Label 12/12/16 12/12/16 12/13/16 12/13/16 22:32 23:00 00:50 01:00 Temp 97.4 97.2 Pulse 98 65 76 79 Resp 18 18 B/P 102/68 97/59 Pulse Ox 98 98 O2 Delivery Room Air Room Air 12/13/16 12/13/16 12/13/16 12/13/16 05:05 07:00 08:00 13:00 Temp 97.4 97.6 Pulse 100 86 82 98 Resp 18 16 B/P 100/64 104/70 Pulse Ox 97 O2 Delivery Room Air Room Air 12/13/16 12/13/16 12/13/16 12/14/16 15:35 19:03 20:17 00:32 Temp 97.3 97.9 Pulse 94 67 70 91 Resp 18 18 B/P 97/62 107/69 Pulse Ox 98 O2 Delivery Room Air Room Air 12/14/16 12/14/16 12/14/16 12/14/16 00:50 05:40 07:04 08:56 Temp 98.0 98.0 98.8 Pulse 95 87 83 83 Resp 18 18 18 B/P 99/60 99/64 110/73 Pulse Ox 96 98 O2 Delivery Room Air Room Air Room Air Laboratory Tests Test 12/12/16 22:47 Range/Units Alanine Aminotransferase (ALT/SGPT) 8 0-55 U/L Albumin 3.5 3.2-4.5 G/DL Alkaline Phosphatase 104 40-136 U/L Anion Gap 10 5-14 MMOL/L Aspartate Amino Transf (AST/SGOT) 24 5-34 U/L B-Type Natriuretic Peptide 16.2 <100.0 PG/ML BUN/Creatinine Ratio 9 Basophils # (Auto) 0.0 0.0-0.1 10^3/uL Basophils (%) (Auto) 0 0-10 % Blood Urea Nitrogen 5 L 7-18 MG/DL Calcium Level 8.7 8.5-10.1 MG/DL Carbon Dioxide Level 19 L 21-32 MMOL/L Chloride Level 107 98-107 MMOL/L Creatinine 0.58 L 0.60-1.30 MG/DL Eosinophils # (Auto) 0.1 0.0-0.3 10^3/uL Eosinophils (%) (Auto) 1 0-10 % Estimat Glomerular Filtration Rate > 60 Glucose Level 88 70-105 MG/DL Hematocrit 31 L 35-52 % Hemoglobin 10.6 L 11.5-16.0 G/DL Lymphocytes # (Auto) 2.7 1.0-4.0 X 10^3 Lymphocytes (%) (Auto) 26 12-44 % Magnesium Level 1.8 1.8-2.4 MG/DL Mean Corpuscular Hemoglobin 31 25-34 PG Mean Corpuscular Hemoglobin Concent 34 32-36 G/DL Mean Corpuscular Volume 91 80-99 FL Mean Platelet Volume 10.4 7.4-10.4 FL Monocytes # (Auto) 0.5 0.0-1.0 X 10^3 Monocytes (%) (Auto) 5 0-12 % Neutrophils # (Auto) 7.1 1.8-7.8 X 10^3 Neutrophils (%) (Auto) 68 42-75 % Platelet Count 252 130-400 10^3/uL Potassium Level 3.9 3.6-5.0 MMOL/L Red Blood Count 3.42 L 4.35-5.85 10^6/uL Red Cell Distribution Width 13.8 10.0-14.5 % Sodium Level 136 135-145 MMOL/L Total Bilirubin 0.4 0.1-1.0 MG/DL Total Protein 6.2 L 6.4-8.2 G/DL White Blood Count 10.5 4.3-11.0 10^3/uL 1. at 33 weeks 2. Sustained v tach - improved with medicatin 3. Hypomagnesemia - replacing FLIP ESPRAZA DO Dec 14, 2016 11:22
[2016-12-14] MEDS ORDERED: METO-270 PO (11:23)
[2016-12-14] MEDS ORDERED: MAGN400T6 PO (11:23)
--- NOTE | 2016-12-14 11:25 | Discharge Inst-Women's Service ---
Discharge Inst-Women's Serv Depart Medication/Instructions New, Converted or Re-Newed RX: Transmitted to Pharmacy Final Diagnosis sustained ventricular tachycardia hypomagnesemia third trimester Consults/Follow Up Additional Follow Up: Yes (as scheduled. May need to schedule follow up with Kiana) Activity Activity: Activity as Tolerated Driving Instructions: You May Drive NO SMOKING: NO SMOKING Nothing Inside Vagina: No Douching, No [place], No Tampons Diet Discharge Diet: No Restrictions Symptoms to Report to : Pain/Pressure in Chest, Heart Beat Irreg/Pounding, Pain/Pressure in Jaw, Lightheadedness For Any Problems or Questions: Contact Your Physician FLIP ESPARZA DO Dec 14, 2016 11:25
[2016-12-14 12:35] VITALS: BP 106/67
--- NOTE | 2016-12-14 13:09 | Progress Note-Cardiology ---
Cardiology SOAP Progress Note Subjective: No cp or palp or syncope or shortness of breath or edema Feels well and wishes to go home Objective: I&O/Vital Signs Vital Sign - Last 12Hours 12/14/16 12/14/16 12/14/16 12/14/16 05:40 07:04 08:56 12:35 Temp 98.0 98.8 98.9 Pulse 87 83 83 84 Resp 18 18 18 B/P 99/64 110/73 106/67 Pulse Ox 98 99 O2 Delivery Room Air Room Air Room Air Weight (Pounds): 165 Weight (Ounces): 0.0 Weight (Calculated Kilograms): 74.701454 Constitutional: AAO x 3 well-developed well-nourished Respiratory: No accessory muscle use, lungs clear to percussion lungs clear to auscultation Cardiovascular: regular rate-rhythm S1 and S2 systolic murmur (faint FERCHO at cardiac base) Gastrointestional: No tender, soft audible bowel sounds other (Uterus palpable above umbilical landmark) Extremities: No clubbing, No cyanosis, No ecchymosis, No significant edema Neurologic/Psychiatric: oriented x 3 grossly intact power is 5/5 both on sides Skin: No rash on exposed areas, No ulcerations on exposed areas Results/Procedures: Labs Laboratory Tests 12/12/16 22:47 Procedures ECG on : NSR, no QT prolongation, somewhat low voltage in frontal leads A/P: Assessment: Wide-complex/ventricular tachycardia (without syncope) diagnosed on a recent Holter by Dr Bruno. The tracings are not available to me. Has been started on beta-kaitlynn and is currently not experiencing any cardiac symptoms Magnesium at lower end of normal on 12/12/16, replenished by the OB Service Echo of 12/12/16 (Dr Bruno): Normal left ventricular size and systolic function. Estimated ejection fraction 60%. Mild mitral and tricuspid regurgitation. No significant abnormality was noted on this study 33 weeks in 2nd Plan: * I have communicated with Dr Bruno via text messaging and discussed her case. Dr Bruno has informed me that he has discussed this case with Dr Pompa of the EP Service at [facility] who has advised beta-kaitlynn therapy that has been initiated and has been tolerated well by the patient * I have asked the patient to call Dr Bruno on 12/16/16 and ask for further instructions and f/u apptt * She is to return to ER in case of any symptoms * She understands all the above issues and states that she will comply NORM KNAPP MD FACP FACC CCDS Dec 14, 2016 13:09
[2016-12-17] MEDS ORDERED: METO-272 PO (17:27)
[2017-01-08] MEDS ORDERED: IBUP-1773 PO (17:35)
== END 2016-12-14 11:23 | disposition home or self-care (01) ==
LOC: LDRP 22:04 → UNDOADMOB 22:04 → LDRP 22:10
PROVIDERS: ADMIT Obstetrics & Gynecology; ATTEND Obstetrics & Gynecology
DX: O99.413 Diseases of the circulatory system complicating pregnancy, third trimester (principal); I47.2 Ventricular tachycardia; O99.283 Endocrine, nutritional and metabolic diseases complicating pregnancy, third trimester; E83.42 Hypomagnesemia; Z3A.33 33 weeks gestation of pregnancy
CPT/HCPCS: 36415; 76805; 76819; 80053; 83735; 83880; 85025; 86850; 86900; 86901; 93005; 99211; G0378

== ENCOUNTER → 2016-12-12 | Outpatient (CLI) | payer MEDICAID ==
--- OUTSIDE RECORDS SUMMARY | 2016-12-12 11:03 | XMS REPORT | Continuity of Care Document ---
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 Promotional Model Name Role Phone JESÚS ARTEAGA Benjy SURESH PCP Insurance Providers Payer Name Policy Number Subscriber Name Relationship [facility] [id number] Ortiz Vann 18 Self / Same As [...] Type Severity Reaction Status Last Updated jordon ([id number]) Allergy Mild Active 12/30/11 Immunizations Name Given [...] Height (Inches) 4 inches Height (Calculated Centimeters) 162.539342 cm Weight (Pounds) 140 pounds Weight (Calculated Grams) 58602.932 gm Weight (Calculated Kilograms) 63.502712 kilograms Calculated BMI 24.03 Results Laboratory Results Test Name Result Units Flags Reference Collection Date/Time Result Date/ Time Comments Urine Color YELLOW 01/13/2015 10:20pm 01/13/2015 10:55pm Urine Clarity CLEAR 01/13/2015 10:20pm 01/13/2015 10:55pm Urine pH 7 5-9 01/13/2015 10:20pm 01/13/2015 10:55pm Urine Specific [place] 1.010 * 1.016-1.022 01/13/2015 10:20pm 2014 10:55pm [...] 5 5-9 02/02/2015 6:02/02/2015 6:34am Urine Specific [place] 1.025 * 1.016-1.022 02/02/2015 6:2014 6:34am Urine [...] Encounter Location Date/Time Departed Emergency Room Via [facility] 02/02/15 4:30am Departed Emergency Room Via [facility] 01/13/15 10:01pm Recent Diagnosis
--- NOTE | 2016-12-13 08:50 | ECHOCARDIOGRAPHY REPORT ---
PROCEDURE PHYSICIAN: MARTHA ROJAS DATE OF PROCEDURE: 12/12/2016 TWO DIMENSIONAL ECHOCARDIOGRAM REPORT PRIMARY PHYSICIAN: OTHER PHYSICIAN: REFERRING PHYSICIAN: Dr. Hodgson ORDERING PHYSICIAN: INDICATION FOR THE PROCEDURE: Palpitations, shortness of breath MEASUREMENTS DERIVED VALUES LV DIAMETER (LAX) NORMALS NORMALS Diastolic 4.6 (3.6-5.2) Eject. Fract. 60% (60%+/-6%) Systolic (2.3-3.9) Diastolic Vol. % Shortening (0.22-0.42) Systolic Vol. Aortic Root IVS THICKNESS Diastolic 1. (0.6-1.1) LVPW THICKNESS Diastolic 1. (0.6-1.1) LA DIAMETER Systolic 3.5 (2.1-3.7) FINDINGS: 1. Technical quality is good. 2. The left ventricle is normal in size with normal contractility. Systolic function appeared to be normal. Estimated ejection fraction 60%. 3. The left atrium is normal in size. No clot or thrombus were seen within the left atrium. 4. The right atrium and right ventricle are normal in size. No clot or thrombus were seen within the right side. 5. Mitral valve is normal in morphology with mild mitral regurgitation noted by color Doppler flow. No mitral valve prolapse. No mitral valve stenosis. 6. Aortic valve is trileaflet with normal opening and closing pattern. No significant aortic stenosis or regurgitation was seen. 7. Tricuspid valve is normal in morphology with mild tricuspid regurgitation noted by color Doppler flow. Insufficient Doppler signal to evaluate pulmonary artery pressure. 8. Pulmonic valve is functioning normally. 9. No pericardial effusion. CONCLUSION: 1. Normal left ventricular size and systolic function. Estimated ejection fraction 60%. 2. Mild mitral and tricuspid regurgitation. 3. No significant abnormality was noted on this study Job ID: [id number] Dictated Date: 12/13/2016 07:18:36 Orthopedic Surgeon Date: 12/13/2016 08:45:07 / keesha
== END ==
LOC: CARD 11:00
PROVIDERS: ATTEND Internal Medicine Cardiovascular Disease
DX: R00.2 Palpitations (principal); R06.02 Shortness of breath
CPT/HCPCS: 93306

== ENCOUNTER 2016-12-16 14:03 | Observation (INO) | payer MEDICAID ==
[~2016-12-16] VITALS: Ht 162.6 cm; Wt 74.8 kg
[~2016-12-16 14:03] MED LIST changes: +IRON1TAB89 PO; +MAGN250T13 PO; +MAGN400T6 PO; +METO-270 PO; +PREN-37 PO
--- OUTSIDE RECORDS SUMMARY | 2016-12-16 14:09 | XMS REPORT | Continuity of Care Document ---
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 Name Role Phone JESÚS ARTEAGA Benjy SURESH PCP Insurance Providers Payer Name Policy Number Subscriber Name Relationship [facility] [id number] Ortiz Vann 18 Self / Same As [...] Type Severity Reaction Status Last Updated jordon ([id number]) Allergy Mild Active 12/30/11 Immunizations Name Given [...] Height (Inches) 4 inches Height (Calculated Centimeters) 162.534908 cm Weight (Pounds) 140 pounds Weight (Calculated Grams) 75885.932 gm Weight (Calculated Kilograms) 63.912717 kilograms Calculated BMI 24.03 Results Laboratory Results Test Name Result Units Flags Reference Collection Date/Time Result Date/ Time Comments Urine Color YELLOW 01/13/2015 10:20pm 01/13/2015 10:55pm Urine Clarity CLEAR 01/13/2015 10:20pm 01/13/2015 10:55pm Urine pH 7 5-9 01/13/2015 10:20pm 01/13/2015 10:55pm Urine Specific [place] 1.010 * 1.016-1.022 01/13/2015 10:20pm 2014 10:55pm [...] 5 5-9 02/02/2015 6:02/02/2015 6:34am Urine Specific [place] 1.025 * 1.016-1.022 02/02/2015 6:2014 6:34am Urine [...] Encounter Location Date/Time Departed Emergency Room [facility] 02/02/15 4:30am Departed Emergency Room [facility] 01/13/15 10:01pm Recent Diagnosis
--- NOTE | 2016-12-16 14:34 | ED Cardiac General ---
History of Present Illness General Chief Complaint: Cardiac/General Problems Stated Complaint: V-TAC, 34 WKS PREG, SOA Source: patient Exam Limitations: no limitations History of Present Illness Time seen by provider: 14:32 Initial Comments Referred to ER form Kiana's office with c/o palpitations and SOB. SHe is 34 weeks gestation [id number] she states. She has dyspnea, chest heaviness, near- syncope without actual syncope since last night. Was recently admitted for sustained vtach evaluated by Dr alexander. OB is Dr Esparza. No swelling in her legs. Was started on Betablocker therapy 3 days ago. Normal echo at that time. No pedal edema, no history of dvt. Timing/Duration: 1-2 days Severity: moderate Location: central [facility] FAMILY DAY CARE PROVIDER: No ASA po FAMILY DAY CARE PROVIDER: No Associated Systoms: Chest Pain Shortness of Air Allergies and Home Medications Allergies Coded Allergies: guaifenesin (Verified Allergy, Mild, 12/30/11) Home Medications Iron,Carbonyl/Ascorbic Acid 1 Each Tablet 1 EACH PO DAILY (Reported) Magnesium Oxide 250 Mg Tablet 250 MG PO DAILY (Reported) Magnesium Oxide 400 Mg Tablet #60 400 MG PO BIDPC Prescribed by: FLIP ESPARZA on 12/14/16 1123 Metoprolol Succinate 25 Mg Tab.er.24h #60 25 MG PO DAILY Prescribed by: FLIP ESPARZA on 12/14/16 1123 Vit/Iron Fumarate/FA 1 Each Tablet 1 EACH PO DAILY (Reported) Review of Systems Constitutional: see HPINo chills, No fever EENTM: No Symptoms Reported Respiratory: See HPI Shortness of Air Cardiovascular: See HPI Chest Pain Gastrointestinal: No Symptoms Reported Genitourinary: No Symptoms Reported Musculoskeletal: no symptoms reported Skin: no symptoms reported Psychiatric/Neurological: No Symptoms Reported Endocrine: No Symptoms Reported Past Umlkoyg-Geixnj-Rgsmgh Hx Patient Social History Recent Foreign Travel: No Contact w/Someone Who Travel: No Recent Hopitalizations: Yes (nora francisco as child, uvulitis 2003, ) Immunizations Up To Date Date of Influenza Vaccine: Jul 06, 2011 Surgeries HX Surgeries: Yes (D&C) Surgeries: Eye Surgery Respiratory Hx Respiratory Disorders: Yes Respiratory Disorders: Asthma Cardiovascular Hx Cardiac Disorders: No Neurological Hx Neurological Disorders: No Reproductive System Hx Reproductive Disorders: No Female Reproductive Disorders: Denies Genitourinary Hx Genitourinary Disorders: No Genitourinary Disorders: Bladder Infection Gastrointestinal Hx Gastrointestinal Disorders: No Musculoskeletal Hx Musculoskeletal Disorders: Yes Musculoskeletal Disorders: Scoliosis Endocrine Hx Endocrine Disorders: No HEENT HX 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) Cancer Hx Cancer: No Psychosocial Hx Psychiatric Problems: No Integumentary HX Skin/Integumentary Disorder: No Blood Transfusions Hx Blood Disorders: No Adverse Reaction to a Blood Tr: No Physical Exam Vital Signs Vital Sign - Last 12Hours 12/16/16 14:05 Temp 98.3 Pulse 69 Resp 20 B/P 121/76 Pulse Ox 98 O2 Delivery Room Air Capillary Refill : General Appearance: No Apparent Distress WD/WN HEENT: PERRL/EOMI TMs Normal Neck: Full Range of Motion Normal Inspection Respiratory: Chest Non Tender Lungs Clear Normal Breath Sounds No Accessory Muscle Use No Respiratory Distress Cardiovascular: Regular Rate, Rhythm No Edema Normal Peripheral Pulses Gastrointestinal: Non Tender Soft Other (gravid) Extremity: No Pedal EdemaNo Swelling Neurologic/Psychiatric: Alert Oriented x3 No Motor/Sensory Deficits Skin: Normal Color Warm/Dry Focused Exam Lactic Acid Level Laboratory Tests Test 12/16/16 14:33 Alanine Aminotransferase (ALT/SGPT) 12U/L (0-55) Albumin 3.6G/DL (3.2-4.5) Alkaline Phosphatase 110U/L (40-136) Anion Gap 9MMOL/L (5-14) Aspartate Amino Transf (AST/SGOT) 33U/L (5-34) B-Type Natriuretic Peptide 17.0PG/ML (<100.0) BUN/Creatinine Ratio 8 Blood Urea Nitrogen 5MG/DL (7-18) L Calcium Level 8.9MG/DL (8.5-10.1) Carbon Dioxide Level 20MMOL/L (21-32) L Chloride Level 109MMOL/L (98-107) H Creatinine 0.59MG/DL (0.60-1.30) L Estimat Glomerular Filtration Rate > 60 Glucose Level 76MG/DL (70-105) Magnesium Level 1.9MG/DL (1.8-2.4) Potassium Level 4.0MMOL/L (3.6-5.0) Sodium Level 138MMOL/L (135-145) Total Bilirubin 0.5MG/DL (0.1-1.0) Total Protein 6.6G/DL (6.4-8.2) Troponin I < 0.30NG/ML (<0.30) Progress/Results/Core Measures Results/Orders Lab Results Laboratory Tests Test 12/16/16 14:33 Range/Units Alanine Aminotransferase (ALT/SGPT) 12 0-55 U/L Albumin 3.6 3.2-4.5 G/DL Alkaline Phosphatase 110 40-136 U/L Anion Gap 9 5-14 MMOL/L Aspartate Amino Transf (AST/SGOT) 33 5-34 U/L B-Type Natriuretic Peptide 17.0 <100.0 PG/ML BUN/Creatinine Ratio 8 Basophils # (Auto) 0.0 0.0-0.1 10^3/uL Basophils (%) (Auto) 0 0-10 % Blood Urea Nitrogen 5 L 7-18 MG/DL Calcium Level 8.9 8.5-10.1 MG/DL Carbon Dioxide Level 20 L 21-32 MMOL/L Chloride Level 109 H 98-107 MMOL/L Creatinine 0.59 L 0.60-1.30 MG/DL D-Dimer 0.72 H 0.00-0.49 UG/ML Eosinophils # (Auto) 0.1 0.0-0.3 10^3/uL Eosinophils (%) (Auto) 1 0-10 % Estimat Glomerular Filtration Rate > 60 Glucose Level 76 70-105 MG/DL Hematocrit 35 35-52 % Hemoglobin 11.9 11.5-16.0 G/DL Lymphocytes # (Auto) 2.3 1.0-4.0 X 10^3 Lymphocytes (%) (Auto) 24 12-44 % Magnesium Level 1.9 1.8-2.4 MG/DL Mean Corpuscular Hemoglobin 31 25-34 PG Mean Corpuscular Hemoglobin Concent 34 32-36 G/DL Mean Corpuscular Volume 91 80-99 FL Mean Platelet Volume 10.6 H 7.4-10.4 FL Monocytes # (Auto) 0.5 0.0-1.0 X 10^3 Monocytes (%) (Auto) 5 0-12 % Neutrophils # (Auto) 6.9 1.8-7.8 X 10^3 Neutrophils (%) (Auto) 71 42-75 % Platelet Count 231 130-400 10^3/uL Potassium Level 4.0 3.6-5.0 MMOL/L Red Blood Count 3.87 L 4.35-5.85 10^6/uL Red Cell Distribution Width 14.1 10.0-14.5 % Sodium Level 138 135-145 MMOL/L Total Bilirubin 0.5 0.1-1.0 MG/DL Total Protein 6.6 6.4-8.2 G/DL Troponin I < 0.30 <0.30 NG/ML White Blood Count 9.7 4.3-11.0 10^3/uL My Orders Orders-TRACIE ADAMS APRN Ekg Tracing (12/16/16 14:31) Continuous Ekg Monitoring (12/16/16 14:31) Troponin I (12/16/16 14:31) BNP (12/16/16 14:31) Magnesium (12/16/16 14:31) Cbc With Automated Diff (12/16/16 14:31) Comprehensive Metabolic Panel (12/16/16 14:31) Heart Tones (12/16/16 14:31) Fibrin Degradation Products (12/16/16 14:45) Saline Lock/Iv-Start (12/16/16 15:03) Vital Signs/I&O Vital Sign - Last 12Hours 12/16/16 14:05 Temp 98.3 Pulse 69 Resp 20 B/P 121/76 Pulse Ox 98 O2 Delivery Room Air Departure Communication Time/Spoke to Admitting Phy: 15:[address] alexander and dr esparza. will admit to womens services for observation Progress Notes 1530-99% room air, HR 60s sinus without ectopy during er stay. Impression Impression: Primary Impression: Chest pain Additional Impressions: Dyspnea History of ventricular tachycardia Disposition: ADMITTED INPATIENT Condition: Stable Decision to Admit Reason: Admit from ER (General) Decision to Admit/Date: Dec 16, 2016 Time/Decision to Admit Time: 15:30 Departure-Patient Inst. Referrals: FLIP ESPARZA DO (PCP) Primary Care Physician JESÚS ARTEAGA DO (Family) Primary Care Physician TRACIE ADAMS APRN Dec 16, 2016 14:34
[2016-12-16 14:40] LABS: BASOPHILS % (AUTO) 0 % (0-10); EOSINOPHILS # (AUTO) 0.1 10^3/uL (0.0-0.3); EOSINOPHILS % (AUTO) 1 % (0-10); LYMPHOCYTES # (AUTO) 2.3 X 10^3 (1.0-4.0); LYMPHOCYTES % (AUTO) 24 % (12-44); MEAN CORPUSCULAR HEMOGLOBIN 31 PG (25-34); MEAN CORPUSCULAR HGB CONC 34 G/DL (32-36); MEAN CORPUSCULAR VOLUME 91 FL (80-99); MEAN PLATELET VOLUME 10.6 FL (7.4-10.4); MONOCYTES # (AUTO) 0.5 X 10^3 (0.0-1.0); MONOCYTES % (AUTO) 5 % (0-12); NEUTROPHILS # (AUTO) 6.9 X 10^3 (1.8-7.8); NEUTROPHILS % (AUTO) 71 % (42-75); PLATELET COUNT 231 10^3/uL (130-400); RED BLOOD COUNT 3.87 10^6/uL (4.35-5.85); RED CELL DISTRIBUTION WIDTH 14.1 % (10.0-14.5); WHITE BLOOD COUNT 9.7 10^3/uL (4.3-11.0)
[2016-12-16 14:56] LABS: ALANINE AMINOTRANSFERASE 12 U/L (0-55); ALBUMIN 3.6 G/DL (3.2-4.5); ANION GAP 9 MMOL/L (5-14); ASPARTATE AMINO TRANSFERASE 33 U/L (5-34); BILIRUBIN,TOTAL 0.5 MG/DL (0.1-1.0); BLOOD UREA NITROGEN 5 MG/DL (7-18); BUN/CREATININE RATIO 8; CALCIUM 8.9 MG/DL (8.5-10.1); CARBON DIOXIDE 20 MMOL/L (21-32); CHLORIDE 109 MMOL/L (98-107); CREATININE SERUM 0.59 MG/DL (0.60-1.30); GFR ESTIMATED > 60; GLUCOSE 76 MG/DL (70-105); MAGNESIUM 1.9 MG/DL (1.8-2.4); SODIUM 138 MMOL/L (135-145); TOTAL PROTEIN 6.6 G/DL (6.4-8.2)
[2016-12-16 15:02] LABS: TROPONIN I < 0.30 NG/ML (<0.30)
[2016-12-16 16:20] VITALS: BP 97/60
--- NOTE | 2016-12-16 17:15 | Consultation-Cardiology ---
HPI-Cardiology Cardiology Consultation Date of Consultation 12/16/16 Date of Admission Indication: chest pain HPI 21-year-old lady with 34 weeks , noted to have ventricular tachycardia last week, admitted and observed on telemetry and started on low-dose beta blockers. Patient was discharged home on Friday. She was feeling better, reported episode of palpitation on Friday night lasted for about half an hour associated with chest pain, this morning she continued to have recurrent episodes of palpitation with rapid heart rate with rate ranging between 120 and 130 associated with chest pain described as dull achiness on the left side of her chest associated with shortness of breath, she was fairly anxious came into the emergency room, no arrhythmia was detected. Patient was admitted to be monitored on telemetry. Home Medications & Allergies Allergies: Coded Allergies: guaifenesin (Verified Allergy, Mild, 12/30/11) Home Medication List Reviewed: Yes [id number] Hx Patient Social History Marital Status: Alcohol Use: Denies Use Recreational Drug Use: No Smoking Status: Never a Smoker 2nd Hand Smoke Exposure: No Recent Foreign Travel: No Recent Infectious Disease Expo: No Recent Hopitalizations: Yes (VTACH) Immunizations Up To Date Date of Influenza Vaccine: Jul 06, 2011 Past Medical History past medical history as discussed below Family Medical History Family Medical Hx noncontributory to her current condition Constitutional: no symptoms reported see HPI EENTM: no symptoms reported see HPI Respiratory: see HPINo cough, dyspnea on exertionNo hemoptysis, No orthopnea , No phlegm, short of breathNo stridor, No wheezing, No other Cardiovascular: see HPI chest pain edemaNo Hx of Intervention, palpitationsNo syncope, No vascular heart diseas, No other Gastrointestinal: no symptoms reported see HPI Genitourinary: no symptoms reported see HPI Musculoskeletal: no symptoms reported see HPI Skin: no symptoms reported see HPI Psychiatric/Neurological: No Symptoms Reported See HPI Reviewed Test Results Reviewed Test Results Lab Laboratory Tests Test 12/16/16 14:33 Range/Units Alanine Aminotransferase (ALT/SGPT) 12 0-55 U/L Albumin 3.6 3.2-4.5 G/DL Alkaline Phosphatase 110 40-136 U/L Anion Gap 9 5-14 MMOL/L Aspartate Amino Transf (AST/SGOT) 33 5-34 U/L B-Type Natriuretic Peptide 17.0 <100.0 PG/ML BUN/Creatinine Ratio 8 Basophils # (Auto) 0.0 0.0-0.1 10^3/uL Basophils (%) (Auto) 0 0-10 % Blood Urea Nitrogen 5 L 7-18 MG/DL Calcium Level 8.9 8.5-10.1 MG/DL Carbon Dioxide Level 20 L 21-32 MMOL/L Chloride Level 109 H 98-107 MMOL/L Creatinine 0.59 L 0.60-1.30 MG/DL D-Dimer 0.72 H 0.00-0.49 UG/ML Eosinophils # (Auto) 0.1 0.0-0.3 10^3/uL Eosinophils (%) (Auto) 1 0-10 % Estimat Glomerular Filtration Rate > 60 Glucose Level 76 70-105 MG/DL Hematocrit 35 35-52 % Hemoglobin 11.9 11.5-16.0 G/DL Lymphocytes # (Auto) 2.3 1.0-4.0 X 10^3 Lymphocytes (%) (Auto) 24 12-44 % Magnesium Level 1.9 1.8-2.4 MG/DL Mean Corpuscular Hemoglobin 31 25-34 PG Mean Corpuscular Hemoglobin Concent 34 32-36 G/DL Mean Corpuscular Volume 91 80-99 FL Mean Platelet Volume 10.6 H 7.4-10.4 FL Monocytes # (Auto) 0.5 0.0-1.0 X 10^3 Monocytes (%) (Auto) 5 0-12 % Neutrophils # (Auto) 6.9 1.8-7.8 X 10^3 Neutrophils (%) (Auto) 71 42-75 % Platelet Count 231 130-400 10^3/uL Potassium Level 4.0 3.6-5.0 MMOL/L Red Blood Count 3.87 L 4.35-5.85 10^6/uL Red Cell Distribution Width 14.1 10.0-14.5 % Sodium Level 138 135-145 MMOL/L Total Bilirubin 0.5 0.1-1.0 MG/DL Total Protein 6.6 6.4-8.2 G/DL Troponin I < 0.30 <0.30 NG/ML White Blood Count 9.7 4.3-11.0 10^3/uL Physical Exam Vital Signs Vital Sign - Last 12Hours 12/16/16 14:05 Temp 98.3 Pulse 69 Resp 20 B/P 121/76 Pulse Ox 98 O2 Delivery Room Air Capillary Refill : Less Than 3 Seconds General Appearance: WD/WN Mild Distress Eyes: Bilateral Eye EOMI, Bilateral Eye Normal Inspection, Bilateral Eye PERRL HEENT: PERRL/EOMI TMs Normal Normal ENT Inspection Pharynx Normal Neck: Full Range of Motion Normal Inspection Non Tender Supple Carotid Bruit Respiratory: Chest Non Tender Lungs Clear Normal Breath Sounds No Accessory Muscle Use No Respiratory Distress Cardiovascular: Regular Rate, Rhythm No Edema No Gallop No JVD No Murmur Normal Peripheral Pulses Gastrointestinal: Normal Bowel Sounds No Organomegaly No Pulsatile Mass Non Tender Soft Other () Back: Normal Inspection No CVA Tenderness No Vertebral Tenderness Extremity: Normal Capillary Refill Normal Inspection Normal Range of Motion Non Tender No Calf Tenderness No Pedal Edema Neurologic/Psychiatric: Alert Oriented x3 No Motor/Sensory Deficits Normal Mood/Affect Skin: Normal Color Warm/Dry Lymphatic: No Adenopathy A/P-Cardiology Admission Diagnosis chest pain nonspecific etiology Palpitation Ventricular tachycardia Shortness of breath Assessment/Plan Chest pain nonspecific etiology, atypical in presentation, EKG did not show any acute abnormality, electrolytes were normal, continue to monitor. Placed on telemetry for observation Palpitation, recurrent episode of palpitation occurred last night and this morning, heart rate in the 120-130, placed on telemetry and will be monitored. Sustained ventricular tachycardia, noted incidentally on Holter monitor, patient has been having increasing palpitation, variable intervals, started on low-dose beta blockers. I will continue monitoring overnight on telemetry. Shortness of breath , 34 weeks. Anxiety Clinical Quality Measures AMI/AHF: ASA po Prior to arrival: MARTHA Rucker MD Dec 16, 2016 17:14
[2016-12-16] MEDS: BETAMETHASONE ACE/NA PHOS 6 MG/ML (CELESTONE SOLUSPAN) IM SCH (18:02)
[2016-12-16] MEDS ORDERED: FLU TRIvalent (5 YOA+) 2016-17 (AFLURIA) 0.5 ML IM ONE (18:30)
[2016-12-16] MEDS: MAGNESIUM OXIDE (MAG-OX)400 MG TAB PO SCH (19:54)
[2016-12-16 20:50] VITALS: BP 121/64
[2016-12-16 23:44] VITALS: BP 97/63
[2016-12-17 04:00] VITALS: BP 97/53
--- NOTE | 2016-12-17 07:47 | History & Physical-OB ---
OB - Chief Complaint & HPI Date Date of Admission: Date of Admission: Dec 16, 2016 at 15:32 Chief Complaint/History OB-Reason for Admission/Chief: Medical Complication (Patient recently diagnosed with sustained ventricular tachycardia and was started on metoprolol 25 mg XR. She was admitted and seen by me at 1600 on 12/16/16 and admitted for observation. She reports a few episodes of tachycardia with rate 120-130 on the evening of 12/15/16. She states it went away spontaneously but today (12/16) has felt more dyspneic and "just not right". No pain in the chest. Baby is moving. No contractions, bleeding, leakage of fluid. She is current ly 34 weeks of gestation. She presented to the ED. Labs and EKG were normal, however , Dr. Bruno would like to admit for observation due to recent diagnosis. She had reactive NST on admission but had uterine irritability. No perceived labor. Betamethasone started due to risk of delivery. ) Hx : 3 Hx Para: 1 Expected Date of Delivery: Jan 27, 2017 Gestational Age in Weeks: 34 Admission Nurse Assessment Rev: Yes History of Labs Laboratory Tests Test 12/16/16 14:33 12/18/16 06:03 Range/Units Alanine Aminotransferase (ALT/SGPT) 12 0-55 U/L Albumin 3.6 3.2-4.5 G/DL Alkaline Phosphatase 110 40-136 U/L Anion Gap 9 10 5-14 MMOL/L Aspartate Amino Transf (AST/SGOT) 33 5-34 U/L B-Type Natriuretic Peptide 17.0 <100.0 PG/ML BUN/Creatinine Ratio 8 9 Basophils # (Auto) 0.0 0.0-0.1 10^3/uL Basophils (%) (Auto) 0 0-10 % Blood Urea Nitrogen 5 L 5 L 7-18 MG/DL Calcium Level 8.9 8.2 L 8.5-10.1 MG/DL Carbon Dioxide Level 20 L 18 L 21-32 MMOL/L Chloride Level 109 H 108 H 98-107 MMOL/L Creatinine 0.59 L 0.56 L 0.60-1.30 MG/DL D-Dimer 0.72 H 0.00-0.49 UG/ML Eosinophils # (Auto) 0.1 0.0-0.3 10^3/uL Eosinophils (%) (Auto) 1 0-10 % Estimat Glomerular Filtration Rate > 60 > 60 Glucose Level 76 116 H 70-105 MG/DL Hematocrit 35 35-52 % Hemoglobin 11.9 11.5-16.0 G/DL Lymphocytes # (Auto) 2.3 1.0-4.0 X 10^3 Lymphocytes (%) (Auto) 24 12-44 % Magnesium Level 1.9 1.8 1.8-2.4 MG/DL Mean Corpuscular Hemoglobin 31 25-34 PG Mean Corpuscular Hemoglobin Concent 34 32-36 G/DL Mean Corpuscular Volume 91 80-99 FL Mean Platelet Volume 10.6 H 7.4-10.4 FL Monocytes # (Auto) 0.5 0.0-1.0 X 10^3 Monocytes (%) (Auto) 5 0-12 % Neutrophils # (Auto) 6.9 1.8-7.8 X 10^3 Neutrophils (%) (Auto) 71 42-75 % Platelet Count 231 130-400 10^3/uL Potassium Level 4.0 3.9 3.6-5.0 MMOL/L Red Blood Count 3.87 L 4.35-5.85 10^6/uL Red Cell Distribution Width 14.1 10.0-14.5 % Sodium Level 138 136 135-145 MMOL/L Total Bilirubin 0.5 0.1-1.0 MG/DL Total Protein 6.6 6.4-8.2 G/DL Troponin I < 0.30 <0.30 NG/ML White Blood Count 9.7 4.3-11.0 10^3/uL Allergies and Home Medications Allergies Coded Allergies: guaifenesin (Verified Allergy, Mild, 12/30/11) Home Medications Iron,Carbonyl/Ascorbic Acid 1 Each Tablet 1 EACH PO DAILY (Reported) Magnesium Oxide 400 Mg Tablet #60 400 MG PO BIDPC Prescribed by: FLIP ESPARZA on 12/14/16 1123 Metoprolol Succinate 25 Mg Tab.er.24h #60 25 MG PO DAILY Prescribed by: FLIP ESPARZA on 12/14/16 1123 Metoprolol Succinate 50 Mg Tab.er.24h #30 50 MG PO DAILY Prescribed by: FLIP ESPARZA on 12/17/16 1727 Vit/Iron Fumarate/FA 1 Each Tablet 1 EACH PO DAILY (Reported) OB - History Hx of Present Care: Yes Ultrasounds: Normal mid trimester US Obstetrical Complications: None Medical Complications: Cardiovascular Information Induced Hypertension: No Maternal Gestational Diabetes: No Hemorrhage: No Obstetrical History Hx : 3 Hx Para: 1 Hx # Term Pregnancies: 1 Hx # Pregnancies: 0 Number of Living Children: 1 Hx Termination: No Hx Total # of Abortions (Spona: 1 Hx Multiple Gestation: No Hx Stillbirth: No Hx Complication: No Hx Induced Hypertens: No Hx Maternal Gestational Diabet: No Delivery History Hx Dystocia: No Hx Large For Gestational Age I: No Hx Small for Gestational Age I: No Hx Section: No Hx Vaginal Delivery Post C-Sec: No Hx Blood Disorders: No Adverse Rxn to Tranfusion: No Patient Past Medical History NC, new diagnosis of ventricular tachycardia with episoded of sustained V Tach. Echo normal. Started metoprolol 25 mg XR on 12/12/16, also started Magnesium. Social History/Family History HIV/AIDS: No Recent Infectious Disease Expo: No Sexually Transmitted Disease: No Alcohol Use: Denies Use Recreational Drug Use: No Smoking Cessation: Former smoker 2nd Hand Smoke Exposure: No Immunizations Tetanus Booster (TDap): Less than 5yrs Date of Influenza Vaccine: Jul 06, 2011 Rubella: immune RPR/VDRL: Negative GBS Status: Unknown HBsAG: Negative OB - Admission Exam Physical Exam Vitals: Vital Signs 12/17/16 12/17/16 04:00 07:00 Temp 97.0 Pulse 94 Resp 18 B/P 97/53 Pulse Ox 97 O2 Delivery Room Air HEENT: NCAT Heart: Rhythm Normal Lungs: Clear Abdomen: Gravid Extremities: Normal Cervical Dilatation: other (not examined) Short Term Variability: Present Certification And Selection Specialist Variability: Average (6-25) Contractions on Admission: < 5 Minutes Apart (uterine irritability) Labs Laboratory Tests Test 12/16/16 14:33 Range/Units Alanine Aminotransferase (ALT/SGPT) 12 0-55 U/L Albumin 3.6 3.2-4.5 G/DL Alkaline Phosphatase 110 40-136 U/L Anion Gap 9 5-14 MMOL/L Aspartate Amino Transf (AST/SGOT) 33 5-34 U/L B-Type Natriuretic Peptide 17.0 <100.0 PG/ML BUN/Creatinine Ratio 8 Basophils # (Auto) 0.0 0.0-0.1 10^3/uL Basophils (%) (Auto) 0 0-10 % Blood Urea Nitrogen 5 L 7-18 MG/DL Calcium Level 8.9 8.5-10.1 MG/DL Carbon Dioxide Level 20 L 21-32 MMOL/L Chloride Level 109 H 98-107 MMOL/L Creatinine 0.59 L 0.60-1.30 MG/DL D-Dimer 0.72 H 0.00-0.49 UG/ML Eosinophils # (Auto) 0.1 0.0-0.3 10^3/uL Eosinophils (%) (Auto) 1 0-10 % Estimat Glomerular Filtration Rate > 60 Glucose Level 76 70-105 MG/DL Hematocrit 35 35-52 % Hemoglobin 11.9 11.5-16.0 G/DL Lymphocytes # (Auto) 2.3 1.0-4.0 X 10^3 Lymphocytes (%) (Auto) 24 12-44 % Magnesium Level 1.9 1.8-2.4 MG/DL Mean Corpuscular Hemoglobin 31 25-34 PG Mean Corpuscular Hemoglobin Concent 34 32-36 G/DL Mean Corpuscular Volume 91 80-99 FL Mean Platelet Volume 10.6 H 7.4-10.4 FL Monocytes # (Auto) 0.5 0.0-1.0 X 10^3 Monocytes (%) (Auto) 5 0-12 % Neutrophils # (Auto) 6.9 1.8-7.8 X 10^3 Neutrophils (%) (Auto) 71 42-75 % Platelet Count 231 130-400 10^3/uL Potassium Level 4.0 3.6-5.0 MMOL/L Red Blood Count 3.87 L 4.35-5.85 10^6/uL Red Cell Distribution Width 14.1 10.0-14.5 % Sodium Level 138 135-145 MMOL/L Total Bilirubin 0.5 0.1-1.0 MG/DL Total Protein 6.6 6.4-8.2 G/DL Troponin I < 0.30 <0.30 NG/ML White Blood Count 9.7 4.3-11.0 10^3/uL OB - Assessment/Plan/Diagnosis Assessment Assessment: other (near syncope, recent diagnosis of sustained ventricular tachycardia on beta kaitlynn, new diagnosis of hypomagnesemia.) Plan Plan: Induction, Other (Admitted for observation) Other Plan 10:00 Addendum - Dr Bruno has seen the patient this am. He Has increased her metoprolol to 50 m g ER daily. Will plan to monitor another day for signs and symptoms of hypotension. Will monitor for S/S labor. Betamethasone given with second dose this evening. My use procardia if needed for tocolysis, but at this time, just observation. BPP and MELONIE wnl on Friday. Sono shows normal growth with fetus slightly LGA FLIP ESPARZA DO Dec 17, 2016 07:47
[2016-12-17 08:55] VITALS: BP 103/61
[2016-12-17] MEDS: MAGNESIUM OXIDE (MAG-OX)400 MG TAB PO SCH ×3 (09:04→18:24)
[2016-12-17] MEDS: meTOproloL SUCCINATE 50 MG (TOPROL XL) TAB PO SCH (09:04)
--- NOTE | 2016-12-17 09:04 | Cardiology Progress Note ---
Subjective Subjective/Events-last exam Patient in bed. Telemetry revealed episode of SVT last night. Reports episode of dyspnea and palpitations during episode. Feeling better today. Review of Systems General: No Night Sweats, No Fatigue, No Malaise HEENT: No Visual Changes, No Dysphasia, No Sore Throat Pulmonary: No Dyspnea, No Cough, No Pleuritic Chest Pain Cardiovascular: : PalpitationsNo: Chest Pain Gastrointestinal: No: Abdominal Pain, Nausea, Vomiting Genitourinary: No Dysuria, No Frequency Musculoskeletal: No: back pain, neck pain Neurological: No: Numbness, Weakness Objective-Cardiology Exam Last Set of Vital Signs Vital Signs 12/17/16 12/17/16 04:00 07:00 Temp 97.0 Pulse 94 Resp 18 B/P 97/53 Pulse Ox 97 O2 Delivery Room Air Capillary Refill : Less Than 3 Seconds General: Alert, Oriented X3, Cooperative HEENT: Atraumatic, PERRLA Neck: Supple, No JVD, No Thyromegaly Lungs: Clear to Auscultation, Normal Air Movement Heart: Regular Rate, Normal S1, Normal S2, No Murmurs Abdomen: Normal Bowel Sounds, Soft, No Tenderness, No Hepatosplenomegaly, No Masses Extremities: No Clubbing, No Cyanosis, No Edema, Normal Pulses, No Tenderness/ Swelling Neuro: Normal Gait, Normal Speech, Strength at 5/5 X4 Ext, Normal Tone, Sensation Intact Results Lab Laboratory Tests 12/16/16 14:33 A/P-Cardiology Admission Diagnosis chest pain nonspecific etiology Palpitation Ventricular tachycardia Shortness of breath Assessment/Plan Chest pain nonspecific etiology, atypical in presentation, EKG did not show any acute abnormality, electrolytes were normal, continue to monitor. Placed on telemetry for observation Palpitation, recurrent episode of palpitation. Telemetry last night revealed episode of SVT. Continue on Toprol XL and continue to monitor telemetry. Sustained ventricular tachycardia, noted incidentally on Holter monitor, patient has been having increasing palpitation, variable intervals, started on low-dose beta blockers. I will continue monitoring overnight on telemetry. Shortness of breath , 34 weeks. Anxiety Clinical Quality Measures AMI/AHF: ASA po Prior to arrival: ELO Win Dec 17, 2016 09:04
[2016-12-17] MEDS ORDERED: TETANUS,DIPTH,PERTUSS P/F (BOOSTRIX) 0.5 ML VIAL IM ONE (11:15)
[2016-12-17 12:20] VITALS: BP 107/72
--- NOTE | 2016-12-17 15:17 | Cardiology Progress Note ---
Subjective Subjective/Events-last exam patient is laying down in bed, had few episodes of palpitation and shortness of breath last night, noted to have episode of supraventricular tachycardia. Review of Systems General: No Chills, No Night Sweats, No Fatigue, No Malaise, No Appetite, No Other HEENT: No Head Aches, No Visual Changes, No Eye Pain, No Ear Pain, No Dysphasia , No Sinus Congestion, No Post Nasal Drip, No Sore Throat, No Other Pulmonary: DyspneaNo Cough, No Pleuritic Chest Pain, No Other Cardiovascular: : PalpitationsNo: Chest Pain, Edema, Lt Headedness, Orthopnea, Other, Paroxysmal Noc. Dyspnea Objective-Cardiology Exam Last Set of Vital Signs Vital Signs 12/17/16 12:20 Temp 98.5 Pulse 92 Resp 20 B/P 107/72 Pulse Ox 97 O2 Delivery Room Air Capillary Refill : Less Than 3 Seconds General: Alert, Oriented X3, Cooperative HEENT: Atraumatic, PERRLA Neck: Supple, No JVD, No Thyromegaly Lungs: Clear to Auscultation, Normal Air Movement Heart: Regular Rate, Normal S1, Normal S2, No Murmurs Abdomen: Normal Bowel Sounds, Soft, No Tenderness, No Hepatosplenomegaly, No Masses Extremities: No Clubbing, No Cyanosis, No Edema, Normal Pulses, No Tenderness/ Swelling Neuro: Normal Gait, Normal Speech, Strength at 5/5 X4 Ext, Normal Tone, Sensation Intact A/P-Cardiology Admission Diagnosis chest pain nonspecific etiology Palpitation Ventricular tachycardia Shortness of breath Assessment/Plan Chest pain nonspecific etiology, atypical in presentation, EKG did not show any acute abnormality, electrolytes were normal, I increased Toprol to 50 mg and I will monitor her tolerance and response Palpitation, recurrent episode of palpitation. Telemetry last night revealed episode of SVT. I increased Toprol. Monitor and evaluate her response Sustained ventricular tachycardia, noted incidentally on Holter monitor, patient has been having increasing palpitation, variable intervals, started on low-dose beta blockers. I will continue monitoring overnight on telemetry. Shortness of breath , 34 weeks. Anxiety Clinical Quality Measures AMI/AHF: ASA po Prior to arrival: MARTHA Rucker MD Dec 17, 2016 15:17
[2016-12-17 16:00] VITALS: BP 104/68
[2016-12-17] MEDS ORDERED: METO-272 PO (17:27)
--- NOTE | 2016-12-17 17:29 | Discharge Inst-Women's Service ---
Discharge Inst-Women's Serv Depart Medication/Instructions New, Converted or Re-Newed RX: Transmitted to Pharmacy (new dose of metoprolol. Could take 2 of the previous meds each am until these are gone. Continue magnesium.) Final Diagnosis near syncope history of sustained ventricular tachycardia Consults/Follow Up Additional Follow Up: Yes (as scheduled with Dr. Esparza, follow up with Dr. Bruno as recommended) Activity Activity: Activity as Tolerated Driving Instructions: You May Drive NO SMOKING: NO SMOKING Nothing Inside Vagina: No Douching, No [place], No Tampons Diet Discharge Diet: Cardiac Diet, Other Diet Symptoms to Report to : Fever Over 101 Degrees F, Heart Beat Irreg/Pounding , Lightheadedness, Dizziness/Fainting, Shortness of Breath For Any Problems or Questions: Contact Your Physician FLIP ESPARZA DO Dec 17, 2016 17:28
[2016-12-17] MEDS: BETAMETHASONE ACE/NA PHOS 6 MG/ML (CELESTONE SOLUSPAN) IM SCH (18:15)
[2016-12-17 20:30] VITALS: BP 115/70
[2016-12-17 23:14] VITALS: BP 105/63
[2016-12-18 04:53] VITALS: BP 89/51
[2016-12-18 06:51] LABS: ANION GAP 10 MMOL/L (5-14); BLOOD UREA NITROGEN 5 MG/DL (7-18); BUN/CREATININE RATIO 9; CALCIUM 8.2 MG/DL (8.5-10.1); CARBON DIOXIDE 18 MMOL/L (21-32); CHLORIDE 108 MMOL/L (98-107); CREATININE SERUM 0.56 MG/DL (0.60-1.30); GFR ESTIMATED > 60; GLUCOSE 116 MG/DL (70-105); MAGNESIUM 1.8 MG/DL (1.8-2.4); POTASSIUM 3.9 MMOL/L (3.6-5.0); SODIUM 136 MMOL/L (135-145)
[2016-12-18 08:07] VITALS: BP 103/58
--- NOTE | 2016-12-18 08:23 | Progress Note-Standard ---
Standard Progress Note Progress Notes/Assess & Plan Date Seen 12/18/16 Assess & Plan/Chief Complaint HD#3 Pt denies complaints from overnight States tolerating beta kaitlynn therapy well Denies chest pain/shortness of breath. No dizziness/lightheadedness/ palpitations. Fetus is active. Did have some mild CTX overnight but have ceased this AM. VS - Last 72 Hours, by Label 12/16/16 12/16/16 12/16/16 12/16/16 14:05 16:20 16:51 16:52 Temp 98.3 96.6 98.3 Pulse 69 84 74 70 Resp 20 18 16 B/P 121/76 97/60 Pulse Ox 98 100 98 O2 Delivery Room Air Room Air 12/16/16 12/16/16 12/16/16 12/16/16 19:00 19:02 20:50 22:59 Temp 98.2 Pulse 86 86 86 150 Resp 18 B/P 121/64 Pulse Ox 98 O2 Delivery Room Air 12/16/16 12/17/16 12/17/16 12/17/16 23:44 00:59 04:00 07:00 Temp 98.1 97.0 Pulse 97 82 82 94 Resp 18 18 B/P 97/63 97/53 Pulse Ox 98 97 O2 Delivery Room Air Room Air 12/17/16 12/17/16 12/17/16 12/17/16 08:55 12:20 16:00 20:30 Temp 97.4 98.5 98.3 98.2 Pulse 96 92 102 87 Resp 18 20 18 18 B/P 103/61 107/72 104/68 115/70 Pulse Ox 98 97 97 98 O2 Delivery Room Air Room Air Room Air Room Air 12/17/16 12/18/16 12/18/16 23:14 04:53 08:07 Temp 98.5 97.7 98.9 Pulse 89 84 84 Resp 18 18 20 B/P 105/63 89/51 103/58 Pulse Ox 97 97 95 O2 Delivery Room Air Room Air Room Air Gen: NAD Abd: Soft, nttp, gravid FHR: awaiting this AM's tracing A/P: 21 y/o @ 34w1d with sustained ventricular tachycardia S/p BTMZ 12/16-12/[address] Bruno's plan for today. From OB standpoint, ok to discharge. Has f/u visit with Dr. Soares tomorrow. Labs Laboratory Tests 12/16/16 14:33 12/18/16 06:03 ELISE WETZEL MD Dec 18, 2016 08:22
--- NOTE | 2016-12-18 09:50 | Cardiology Progress Note ---
Subjective Subjective/Events-last exam Patient in bed. No new complaints. Denies any episodes of palpitations or dyspnea overnight. No complaints at this time. Review of Systems General: No Night Sweats, No Fatigue, No Malaise HEENT: No Visual Changes, No Dysphasia, No Sore Throat Pulmonary: No Dyspnea, No Cough, No Pleuritic Chest Pain Cardiovascular: No: Chest Pain, Orthopnea, Palpitations Gastrointestinal: No: Abdominal Pain, Nausea, Vomiting Genitourinary: No Dysuria, No Frequency Musculoskeletal: No: back pain, neck pain Neurological: No: Change in speech, Confusion, Numbness, Weakness Objective-Cardiology Exam Last Set of Vital Signs Vital Signs 12/18/16 08:07 Temp 98.9 Pulse 84 Resp 20 B/P 103/58 Pulse Ox 95 O2 Delivery Room Air Capillary Refill : Less Than 3 Seconds General: Alert, Oriented X3, Cooperative HEENT: Atraumatic, PERRLA Neck: Supple, No JVD, No Thyromegaly Lungs: Clear to Auscultation, Normal Air Movement Heart: Regular Rate, Normal S1, Normal S2, No Murmurs Abdomen: Normal Bowel Sounds, Soft, No Tenderness, No Hepatosplenomegaly, No Masses Extremities: No Clubbing, No Cyanosis, No Edema, Normal Pulses, No Tenderness/ Swelling Neuro: Normal Gait, Normal Speech, Strength at 5/5 X4 Ext, Normal Tone, Sensation Intact Results Lab Laboratory Tests 12/18/16 06:03 A/P-Cardiology Admission Diagnosis chest pain nonspecific etiology Palpitation Ventricular tachycardia Shortness of breath Assessment/Plan Chest pain nonspecific etiology, atypical in presentation, EKG did not show any acute abnormality, electrolytes were normal, continue to monitor Palpitation, recurrent episode of palpitation. had episode of SVT 2 nights ago. Tolerating Toprol XL well. Sustained ventricular tachycardia, noted incidentally on Holter monitor, patient has been having increasing palpitation, variable intervals, started on low-dose beta blockers. Shortness of breath , 34 weeks. Anxiety Clinical Quality Measures AMI/AHF: ASA po Prior to arrival: ELO Win Dec 18, 2016 09:50
[2016-12-18] MEDS: meTOproloL SUCCINATE 50 MG (TOPROL XL) TAB PO SCH (10:00)
[2016-12-18] MEDS: MAGNESIUM OXIDE (MAG-OX)400 MG TAB PO SCH (10:00)
[2016-12-18] MEDS ORDERED: TETANUS,DIPTH,PERTUSS P/F (BOOSTRIX) 0.5 ML VIAL IM ONE (10:01)
[2016-12-18 10:57] VITALS: BP 103/58
[2016-12-18 12:05] VITALS: BP 91/49
[2016-12-18] MEDS ORDERED: METO-270 PO (12:37)
--- NOTE | 2016-12-18 13:19 | Cardiology Progress Note ---
Subjective Subjective/Events-last exam Patient is laying down in bed, feeling better, telemetry did not show any further episode of tachycardia arrhythmia Review of Systems General: No Chills, No Night Sweats, No Fatigue, No Malaise, No Appetite, No Other HEENT: No Head Aches, No Visual Changes, No Eye Pain, No Ear Pain, No Dysphasia , No Sinus Congestion, No Post Nasal Drip, No Sore Throat, No Other Pulmonary: No Dyspnea, No Cough, No Pleuritic Chest Pain, No Other Cardiovascular: No: Chest Pain, Edema, Lt Headedness, Orthopnea, Other, Palpitations, Paroxysmal Noc. Dyspnea Objective-Cardiology Exam Last Set of Vital Signs Vital Signs 12/18/16 12/18/16 12:05 13:00 Temp 99.2 Pulse 86 Resp 16 B/P 91/49 Pulse Ox 96 O2 Delivery Room Air Capillary Refill : Less Than 3 Seconds General: Alert, Oriented X3, Cooperative HEENT: Atraumatic, PERRLA Neck: Supple, No JVD, No Thyromegaly Lungs: Clear to Auscultation, Normal Air Movement Heart: Regular Rate, Normal S1, Normal S2, No Murmurs Abdomen: Normal Bowel Sounds, Soft, No Tenderness, No Hepatosplenomegaly, No Masses Extremities: No Clubbing, No Cyanosis, No Edema, Normal Pulses, No Tenderness/ Swelling Neuro: Normal Gait, Normal Speech, Strength at 5/5 X4 Ext, Normal Tone, Sensation Intact Results Lab Laboratory Tests 12/18/16 06:03 A/P-Cardiology Admission Diagnosis chest pain nonspecific etiology Palpitation Ventricular tachycardia Shortness of breath Assessment/Plan Chest pain nonspecific etiology, atypical in presentation, EKG did not show any acute abnormality, electrolytes were normal, continue to monitor Palpitation, recurrent episode of palpitation. had episode of SVT 2 nights ago. Tolerating Toprol XL well, I am changing the dose to Toprol-XL 25 mg twice daily and evaluate her tolerance as an outpatient, I'll arrange for follow-up as an outpatient Sustained ventricular tachycardia, noted incidentally on Holter monitor, patient has been having increasing palpitation, variable intervals, started on low-dose beta blockers. Shortness of breath , 34 weeks. Anxiety Clinical Quality Measures AMI/AHF: ASA po Prior to arrival: MARTHA Rucker MD Dec 18, 2016 13:19
[2016-12-18 13:55] VITALS: BP 91/49
== END 2016-12-18 12:37 | disposition home or self-care (01) ==
LOC: EDUNIT# 14:03 → ER 14:05 → UNDOADMOB 15:32 → LDRP 15:32
PROVIDERS: ADMIT Obstetrics & Gynecology; ATTEND Obstetrics & Gynecology
DX: O99.413 Diseases of the circulatory system complicating pregnancy, third trimester (principal); I47.2 Ventricular tachycardia; R07.89 Other chest pain; O99.343 Other mental disorders complicating pregnancy, third trimester; F41.9 Anxiety disorder, unspecified; O99.283 Endocrine, nutritional and metabolic diseases complicating pregnancy, third trimester; E83.42 Hypomagnesemia; Z3A.34 34 weeks gestation of pregnancy; Z23 Encounter for immunization
CPT/HCPCS: 36415; 80048; 80053; 83735; 83880; 84484; 85025; 85379; 90471; 90715; 93005; 96372; G0378

== ENCOUNTER 2017-01-07 06:00 | Inpatient (IN) | payer MEDICAID ==
[2017-01-07] VITALS (46 sets, daily range): BP systolic 89–128; BP diastolic 50–78
[~2017-01-07] VITALS: Ht 162.6 cm; Wt 75.1 kg
[~2017-01-07 06:00] MED LIST changes: +METO-272 PO
[2017-01-07] MEDS ORDERED: D5 LR IV SOLUTION 1,000 ML IV ONE ×2 (06:25→14:29)
[2017-01-07] MEDS ORDERED: D5 LR IV SOLUTION 1,000 ML IV SCH ×2 (06:47→06:49)
[2017-01-07] MEDS ORDERED: LIDOCAINE/EPI 1%-1:200,000 (XYLOCAINE) 30 ML VIAL INJ PRN (07:00)
[2017-01-07] MEDS ORDERED: MINERAL OIL CONCENTRATE 99.9% 15 ML UDC TOP PRN ×2 (07:00)
[2017-01-07] MEDS ORDERED: MISOPROSTOL 100 MCG (CYTOTEC) TAB PO ONE (07:00)
[2017-01-07 07:06] LABS: BASOPHILS % (AUTO) 0 % (0-10); EOSINOPHILS # (AUTO) 0.1 10^3/uL (0.0-0.3); EOSINOPHILS % (AUTO) 1 % (0-10); LYMPHOCYTES # (AUTO) 2.2 X 10^3 (1.0-4.0); LYMPHOCYTES % (AUTO) 23 % (12-44); MEAN CORPUSCULAR HEMOGLOBIN 31 PG (25-34); MEAN CORPUSCULAR HGB CONC 34 G/DL (32-36); MEAN CORPUSCULAR VOLUME 91 FL (80-99); MEAN PLATELET VOLUME 10.7 FL (7.4-10.4); MONOCYTES # (AUTO) 0.5 X 10^3 (0.0-1.0); MONOCYTES % (AUTO) 5 % (0-12); NEUTROPHILS # (AUTO) 6.6 X 10^3 (1.8-7.8); NEUTROPHILS % (AUTO) 71 % (42-75); PLATELET COUNT 206 10^3/uL (130-400); RED BLOOD COUNT 3.72 10^6/uL (4.35-5.85); WHITE BLOOD COUNT 9.4 10^3/uL (4.3-11.0)
[2017-01-07 07:40] LABS: BILIRUBIN,URINE NEGATIVE (NEGATIVE); KETONES,URINE NEGATIVE (NEGATIVE); LEUKOCYTE ESTERASE ,URINE 1+ (NEGATIVE); NITRITE,URINE NEGATIVE (NEGATIVE); PH,URINE 7 (5-9); PROTEIN,URINE NEGATIVE (NEGATIVE); UROBILINOGEN,URINE NORMAL (NORMAL)
[2017-01-07 07:47] LABS: SQUAMOUS EPITHELIAL CELL,UR 0-2 /HPF; WBC,URINE RARE /HPF
[2017-01-07] MEDS ORDERED: fentaNYL INJECTION 100 MCG/2 ML AMP ONE ×2 (08:23→09:32)
[2017-01-07] MEDS ORDERED: SUFENTA 0.6MCG/ML BUPIVA 0.125 100 ML ONE (08:23)
[2017-01-07] MEDS ORDERED: fentaNYL INJECTION 100 MCG/2 ML AMP IVP ONE (08:30)
[2017-01-07] MEDS ORDERED: TERBUTALINE INJ 1 MG/ML (BRETHINE) AMP SC ONE (08:45)
[2017-01-07] MEDS ORDERED: BUPIVACAINE 0.25% 30 ML (SENSORCAINE) VIAL ONE (09:32)
[2017-01-07] MEDS ORDERED: LIDOCAINE PF 2% 10 ML (XYLOCAINE) AMP ONE (09:32)
[2017-01-07] MEDS ORDERED: LACTATED RINGERS 1,000 ML IV SCH (09:57)
[2017-01-07] MEDS ORDERED: EPIDURAL (SUFENTA 0.6MCG/ML BUPIVA 0.125%) 100 ML BAG EPI PRN (10:00)
[2017-01-07] MEDS ORDERED: diphenhydrAMINE 50 MG/ML INJ (BENADRYL) IV PRN (10:00)
[2017-01-07] MEDS ORDERED: NALOXONE 0.4 MG/ML 1 ML (NARCAN) VIAL IV PRN (10:00)
[2017-01-07] MEDS ORDERED: LACTATED RINGERS 1,000 ML IV ONE (10:30)
[2017-01-07] MEDS ORDERED: OXYTOCIN/NORMAL SALINE 500 ML IV SCH ×2 (10:42→14:29)
[2017-01-07] MEDS ORDERED: CATHETER FLUSH 10 ML SYR IV SCH ×2 (14:00→22:00)
[2017-01-07] MEDS ORDERED: MEASLES,MUMPS,RUBELLA 1 EA INJ SQ ONE (14:30)
[2017-01-07] MEDS ORDERED: WITCH HAZEL(TUCKS) 40 EA JAR TOP PRN (14:30)
[2017-01-07] MEDS ORDERED: DIBUCAINE (NUPERCAINAL) 1% OINT 30 GM TOP PRN (14:30)
[2017-01-07] MEDS ORDERED: BENZOCAINE/MENTHOL (DERMOPLAST) 56 ML CAN TP PRN (14:30)
[2017-01-07] MEDS ORDERED: TETANUS,DIPTH,PERTUSS P/F (BOOSTRIX) 0.5 ML VIAL IM ONE (14:30)
[2017-01-07] MEDS ORDERED: IBUPROFEN 600 MG (MOTRIN) TAB PO ONE (14:46)
--- NOTE | 2017-01-07 14:49 | OB Labor & Delivery Record ---
Vag Delivery Note Vag Delivery Note Date of Delivery: 01/07/17 Preoperative Diagnosis: Ortiz Vann is a 21 /Para 3/1 ,Gestational Age 37 weeks, with history of sustained ventricular tachycardia, medicated. Induction at recommendation of cardiology due to the risk of recurrence. Postoperative Diagnosis: Same Surgeon: FLIP ESPARZA [facility] Case Manager: Miranda Aguilar MS IV Anesthesia: epidural Delivery Type: vaginal Findings: Viable male infant, apgars 8/9, weight 7#2oz Lacerations: Intact placenta with 3 vessel cord. Nuchal cord x 1, reduced, body cord or shoulder dystocia Estimated Blood Loss: 200 ml Complications: None Condition: Stable Description of Procedure: The patient is a 21 /Para 3/1 ,Gestational Age 37 weeks, with history of sustained ventricular tachycardia, medicated. Induction at recommendation of cardiology due to the risk of recurrence. She was admitted and informed consent was obtained. Her labor course was remarkable for cytotec ripening x 1. Terbutaline x 1 for tachysystole. Then AROM and epidural with pitocin augmentation. She progressed to complete dilatation and began to push. She was then set up for delivery. The 's head was delivered atraumatically in the DIANDRA position. The shoulders and remainder of the 's body were then delivered without difficulty. There was a nuchal cord x 1 delivered through. Upon delivery, the head was held below the level of the perineum and the mouth and nares were bulb suctioned. The cord was doubly clamped and cut and the infant was handed off to the pediatric staff. An intact placenta with 3-vessel cord delivered via Juan Antonio and there was found to be minimal bleeding.~ Vigorous fundal massage was performed and the fundus was found to be firm. IV oxytocin was given. Examination of the vagina and perineum revealed no laceration. Following the delivery, sponge, instrument and needle counts were correct. Mom and baby were both in stable condition in the labor suite. Vitals - Labs Vital Signs - I&O Vital Signs Date Time Temp Pulse Resp B/P (MAP) Pulse Ox O2 Delivery O2 Flow Rate FiO2 01/07/17 13:00 75 18 111/69 01/07/17 13:00 68 01/07/17 12:45 99.0 77 18 111/67 98 01/07/17 12:30 87 18 109/70 98 01/07/17 12:15 76 18 107/64 98 01/07/17 12:00 78 18 108/66 99 01/07/17 11:45 102 18 105/73 99 01/07/17 11:30 102 18 105/73 99 01/07/17 11:15 85 18 111/69 98 01/07/17 11:00 97.2 78 18 107/65 99 01/07/17 10:45 83 18 117/70 99 01/07/17 10:39 92 18 115/67 99 01/07/17 10:36 83 18 112/66 99 01/07/17 10:33 81 18 106/62 01/07/17 10:30 81 18 112/70 99 01/07/17 10:27 92 18 111/73 99 01/07/17 10:24 86 18 112/72 99 01/07/17 10:21 82 18 105/66 98 01/07/17 10:18 80 18 107/59 01/07/17 10:15 67 18 89/50 99 01/07/17 10:12 81 18 96/55 97 01/07/17 10:09 100 18 101/63 97 01/07/17 10:06 106 18 100/57 97 01/07/17 10:03 102 18 103/64 97 01/07/17 10:00 87 18 110/70 98 01/07/17 09:58 95 18 114/68 98 01/07/17 09:55 101 18 118/69 98 01/07/17 09:50 89 18 124/73 99 01/07/17 09:45 90 18 128/68 100 01/07/17 09:40 92 18 124/78 100 01/07/17 09:30 93 18 107/62 01/07/17 09:00 01/07/17 08:30 73 18 107/61 01/07/17 08:00 01/07/17 07:30 98.1 75 18 107/63 01/07/17 07:00 97.6 90 18 99/67 99 01/07/17 07:00 72 Labs Laboratory Tests 01/07/17 06:50: White Blood Count 9.4, Red Blood Count 3.72L, Hemoglobin 11.5, Hematocrit 34L, Mean Corpuscular Volume 91, Mean Corpuscular Hemoglobin 31, Mean Corpuscular Hemoglobin Concent 34, Red Cell Distribution Width 15.0H, Platelet Count 206, Mean Platelet Volume 10.7H, Neutrophils (%) (Auto) 71, Lymphocytes (%) (Auto) 23 , Monocytes (%) (Auto) 5, Eosinophils (%) (Auto) 1, Basophils (%) (Auto) 0, Neutrophils # (Auto) 6.6, Lymphocytes # (Auto) 2.2, Monocytes # (Auto) 0.5, Eosinophils # (Auto) 0.1, Basophils # (Auto) 0.0 01/07/17 07:30: Urine Color YELLOW, Urine Clarity CLEAR, Urine pH 7, Urine Specific [place] 1.010L, Urine Protein NEGATIVE, Urine Glucose (UA) NEGATIVE, Urine Ketones NEGATIVE, Urine Nitrite NEGATIVE, Urine Bilirubin NEGATIVE, Urine Urobilinogen NORMAL, Urine Leukocyte Esterase 1+H, Urine RBC (Auto) NEGATIVE, Urine RBC NONE , Urine WBC RARE, Urine Squamous Epithelial Cells 0-2, Urine Crystals NONE, Urine Bacteria TRACE, Urine Casts NONE, Urine Mucus NEGATIVE, Urine Culture Indicated NO FLIP ESPARZA DO Jan 07, 2017 14:49
[2017-01-07] MEDS: IBUPROFEN 600 MG (MOTRIN) TAB PO SCH ×2 (15:12→20:32)
[2017-01-07] MEDS: DOCUSATE SODIUM 100 MG (COLACE) CAP PO SCH (20:33)
[2017-01-07] MEDS ORDERED: HYDROcodone/APAP 5 MG/325 MG (LORTAB) TAB PO ONE (23:00)
[2017-01-08 03:00] VITALS: BP 100/64
[2017-01-08] MEDS: IBUPROFEN 600 MG (MOTRIN) TAB PO SCH ×4 (03:21→21:20)
[2017-01-08 05:54] LABS: BASOPHILS % (AUTO) 0 % (0-10); EOSINOPHILS # (AUTO) 0.1 10^3/uL (0.0-0.3); EOSINOPHILS % (AUTO) 1 % (0-10); LYMPHOCYTES # (AUTO) 2.8 X 10^3 (1.0-4.0); LYMPHOCYTES % (AUTO) 25 % (12-44); MEAN CORPUSCULAR HEMOGLOBIN 31 PG (25-34); MEAN CORPUSCULAR HGB CONC 34 G/DL (32-36); MEAN CORPUSCULAR VOLUME 92 FL (80-99); MEAN PLATELET VOLUME 10.5 FL (7.4-10.4); MONOCYTES # (AUTO) 0.5 X 10^3 (0.0-1.0); MONOCYTES % (AUTO) 5 % (0-12); NEUTROPHILS # (AUTO) 7.8 X 10^3 (1.8-7.8); NEUTROPHILS % (AUTO) 70 % (42-75); PLATELET COUNT 195 10^3/uL (130-400); RED BLOOD COUNT 3.62 10^6/uL (4.35-5.85); RED CELL DISTRIBUTION WIDTH 15.1 % (10.0-14.5); WHITE BLOOD COUNT 11.2 10^3/uL (4.3-11.0)
--- NOTE | 2017-01-08 08:35 | Postpartum Progress Note ---
Note Note Day # 1 Subjective: Patient is without complaints. Ambulating, voiding. Tolerating a regular diet without nausea or vomiting. Normal lochia. Pain is well controlled with oral pain medications. Breast and bottle feeding. Denies any cardiac complaints including CP, SOA, palpitations. Objective: VS - Last 72 Hours, by Label 01/07/17 01/07/17 01/07/17 01/07/17 07:00 07:00 07:30 08:00 Temp 97.6 98.1 Pulse 72 90 75 Resp 18 18 B/P (MAP) 99/67 107/63 Pulse Ox 99 01/07/17 01/07/17 01/07/17 01/07/17 08:30 09:00 09:30 09:40 Pulse 73 93 92 Resp 18 18 18 B/P (MAP) 107/61 107/62 124/78 Pulse Ox 100 01/07/17 01/07/17 01/07/17 01/07/17 09:45 09:50 09:55 09:58 Pulse 90 89 101 95 Resp 18 18 18 18 B/P (MAP) 128/68 124/73 118/69 114/68 Pulse Ox 100 99 98 98 01/07/17 01/07/17 01/07/17 01/07/17 10:00 10:03 10:06 10:09 Pulse 87 102 106 100 Resp 18 18 18 18 B/P (MAP) 110/70 103/64 100/57 101/63 Pulse Ox 98 97 97 97 01/07/17 01/07/17 01/07/17 01/07/17 10:12 10:15 10:18 10:21 Pulse 81 67 80 82 Resp 18 18 18 18 B/P (MAP) 96/55 89/50 107/59 105/66 Pulse Ox 97 99 98 01/07/17 01/07/17 01/07/17 01/07/17 10:24 10:27 10:30 10:33 Pulse 86 92 81 81 Resp 18 18 18 18 B/P (MAP) 112/72 111/73 112/70 106/62 Pulse Ox 99 99 99 01/07/17 01/07/17 01/07/17 01/07/17 10:36 10:39 10:45 11:00 Temp 97.2 Pulse 83 92 83 78 Resp 18 18 18 18 B/P (MAP) 112/66 115/67 117/70 107/65 Pulse Ox 99 99 99 99 01/07/17 01/07/17 01/07/17 01/07/17 11:15 11:30 11:45 12:00 Pulse 85 102 102 78 Resp 18 18 18 18 B/P (MAP) 111/69 105/73 105/73 108/66 Pulse Ox 98 99 99 99 01/07/17 01/07/17 01/07/17 01/07/17 12:15 12:30 12:45 13:00 Temp 99.0 Pulse 76 87 77 68 Resp 18 18 18 B/P (MAP) 107/64 109/70 111/67 Pulse Ox 98 98 98 01/07/17 01/07/17 01/07/17 01/07/17 13:00 13:15 13:30 13:45 Pulse 75 86 85 84 Resp 18 18 18 18 B/P (MAP) 111/69 111/65 117/67 122/58 01/07/17 01/07/17 01/07/17 01/07/17 13:56 13:59 14:15 14:29 Temp 99.3 Pulse 99 99 95 Resp 18 18 18 B/P (MAP) 126/62 114/65 115/75 Pulse Ox 97 01/07/17 01/07/17 01/07/17 01/07/17 14:44 14:59 15:14 15:29 Temp 98.9 98.8 Pulse 89 95 88 85 Resp 18 18 18 18 B/P (MAP) 113/66 109/64 112/72 113/63 Pulse Ox 97 96 01/07/17 01/07/17 01/07/17 01/07/17 15:56 19:00 19:40 23:35 Temp 98.3 98.2 98.4 Pulse 84 123 124 77 Resp 18 18 18 B/P (MAP) 101/58 107/63 112/74 Pulse Ox 97 O2 Delivery Room Air Room Air 01/08/17 03:00 Temp 97.3 Pulse 86 Resp 18 B/P (MAP) 100/64 Pulse Ox 95 O2 Delivery Room Air Physical Exam: General - Alert and oriented, no apparent distress Abdomen - deferred (holding infant) Extremities - trace bilat pitting edema, negative Liz's bilaterally Laboratory Tests Test 01/08/17 05:35 Range/Units White Blood Count 11.2 H 4.3-11.0 10^3/uL Red Blood Count 3.62 L 4.35-5.85 10^6/uL Hemoglobin 11.2 L 11.5-16.0 G/DL Hematocrit 33 L 35-52 % Mean Corpuscular Volume 92 80-99 FL Mean Corpuscular Hemoglobin 31 25-34 PG Mean Corpuscular Hemoglobin Concent 34 32-36 G/DL Red Cell Distribution Width 15.1 H 10.0-14.5 % Platelet Count 195 130-400 10^3/uL Mean Platelet Volume 10.5 H 7.4-10.4 FL Neutrophils (%) (Auto) 70 42-75 % Lymphocytes (%) (Auto) 25 12-44 % Monocytes (%) (Auto) 5 0-12 % Eosinophils (%) (Auto) 1 0-10 % Basophils (%) (Auto) 0 0-10 % Neutrophils # (Auto) 7.8 1.8-7.8 X 10^3 Lymphocytes # (Auto) 2.8 1.0-4.0 X 10^3 Monocytes # (Auto) 0.5 0.0-1.0 X 10^3 Eosinophils # (Auto) 0.1 0.0-0.3 10^3/uL Basophils # (Auto) 0.0 0.0-0.1 10^3/uL Assessment: 21 y/o post- day # 1, status post spontaneous vaginal delivery after IOL at early term for h/o sustained vtach in . Recovering well, hemodynamically stable Rh+ RI Plan: Routine care. Will await Dr. Bruno's recommendations today. HR to 124bpm overnight but currently denies cardiac complaints. Per Dr. Soares, likely d/c home tomorrow. Metoprolol 25 mg BID. Encourage breast feeding. Encourage ambulation. Vitals - Labs Vital Signs - I&O Vital Signs Date Time Temp Pulse Resp B/P (MAP) Pulse Ox O2 Delivery O2 Flow Rate FiO2 01/08/17 03:00 97.3 86 18 100/64 95 Room Air 01/07/17 23:35 98.4 77 18 112/74 Room Air 01/07/17 19:40 98.2 124 18 107/63 97 Room Air 01/07/17 19:00 123 01/07/17 15:56 98.3 84 18 101/58 01/07/17 15:29 85 18 113/63 01/07/17 15:14 88 18 112/72 01/07/17 14:59 98.8 95 18 109/64 96 01/07/17 14:44 98.9 89 18 113/66 97 01/07/17 14:29 95 18 115/75 97 01/07/17 14:15 99.3 99 18 114/65 01/07/17 13:59 99 18 126/62 01/07/17 13:56 01/07/17 13:45 84 18 122/58 01/07/17 13:30 85 18 117/67 01/07/17 13:15 86 18 111/65 01/07/17 13:00 75 18 111/69 01/07/17 13:00 68 01/07/17 12:45 99.0 77 18 111/67 98 01/07/17 12:30 87 18 109/70 98 01/07/17 12:15 76 18 107/64 98 01/07/17 12:00 78 18 108/66 99 01/07/17 11:45 102 18 105/73 99 01/07/17 11:30 102 18 105/73 99 01/07/17 11:15 85 18 111/69 98 01/07/17 11:00 97.2 78 18 107/65 99 01/07/17 10:45 83 18 117/70 99 01/07/17 10:39 92 18 115/67 99 01/07/17 10:36 83 18 112/66 99 01/07/17 10:33 81 18 106/62 01/07/17 10:30 81 18 112/70 99 01/07/17 10:27 92 18 111/73 99 01/07/17 10:24 86 18 112/72 99 01/07/17 10:21 82 18 105/66 98 01/07/17 10:18 80 18 107/59 17 10:15 67 18 89/50 99 01/07/17 10:12 81 18 96/55 97 01/07/17 10:09 100 18 101/63 97 01/07/17 10:06 106 18 100/57 97 01/07/17 10:03 102 18 103/64 97 01/07/17 10:00 87 18 110/70 98 01/07/17 09:58 95 18 114/68 98 01/07/17 09:55 101 18 118/69 98 01/07/17 09:50 89 18 124/73 99 01/07/17 09:45 90 18 128/68 100 01/07/17 09:40 92 18 124/78 100 01/07/17 09:30 93 18 107/62 01/07/17 09:00 I & O 01/08/17 07:00 Intake Total 2900 ml Balance 2900 ml Labs Laboratory Tests 01/08/17 05:35: White Blood Count 11.2H, Red Blood Count 3.62L, Hemoglobin 11.2L, Hematocrit 33L , Mean Corpuscular Volume 92, Mean Corpuscular Hemoglobin 31, Mean Corpuscular Hemoglobin Concent 34, Red Cell Distribution Width 15.1H, Platelet Count 195, Mean Platelet Volume 10.5H, Neutrophils (%) (Auto) 70, Lymphocytes (%) (Auto) 25 , Monocytes (%) (Auto) 5, Eosinophils (%) (Auto) 1, Basophils (%) (Auto) 0, Neutrophils # (Auto) 7.8, Lymphocytes # (Auto) 2.8, Monocytes # (Auto) 0.5, Eosinophils # (Auto) 0.1, Basophils # (Auto) 0.0 ELISE WETZEL MD Jan 08, 2017 08:35
[2017-01-08 09:00] VITALS: BP 101/61
[2017-01-08] MEDS: PRENATAL VITAMIN 1 EA TAB PO SCH (09:20)
[2017-01-08] MEDS: FERROUS SULF 325 MG (IRON) TAB PO SCH (09:20)
[2017-01-08] MEDS: DOCUSATE SODIUM 100 MG (COLACE) CAP PO SCH ×2 (09:20→21:20)
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
[2017-01-08 12:15] VITALS: BP 111/70
--- NOTE | 2017-01-08 13:06 | Anesthesia-Regional Post-Op ---
Regional Patient Condition Mental Status: Alert, Oriented x3 Circulation: Same as Pre-Op Headache: Absent Sensation: Full Recovery Motor Block: Absent Post Op Complications Complications None Follow Up Care/Instructions Patient Instructions None needed. Anesthesia/Patient Condition Patient is doing well, no complaints, stable vital signs, no apparent adverse anesthesia problems. SHAUN WILSON DO Jan 08, 2017 13:06
[2017-01-08] MEDS ORDERED: IBUP-1773 PO (17:35)
--- NOTE | 2017-01-08 17:37 | Discharge Inst-Women's Service ---
Discharge Inst-Women's Serv Depart Medication/Instructions New, Converted or Re-Newed RX: Transmitted to Pharmacy Final Diagnosis 37 week vaginal delivery, induction history of prolonged svt Consults/Follow Up Additional Follow Up: Yes (2-[address] Bruno[address] Esparza) Activity Activity: Activity as Tolerated Driving Instructions: You May Drive NO SMOKING: NO SMOKING Nothing Inside Vagina: No Douching, No [place], No Tampons Diet Discharge Diet: No Restrictions Symptoms to Report to : Swelling Increased, Bleeding Excessive, Fever Over 101 Degrees F, Pain/Pressure in Chest, Heart Beat Irreg/Pounding, Pain/Pressure in Jaw, Vaginal Bleeding Increase, Vaginal Discharge Foul, Dizziness/Fainting, Shortness of Breath FLIP ESPARZA DO Jan 08, 2017 17:37
[2017-01-08 21:20] VITALS: BP 96/51
[2017-01-09 00:45] VITALS: BP 99/55
[2017-01-09] MEDS ORDERED: ACETAMINOPHEN 500 MG TAB (TYLENOL) PO ONE (01:45)
[2017-01-09] MEDS: IBUPROFEN 600 MG (MOTRIN) TAB PO SCH ×2 (04:47→11:13)
[2017-01-09 04:50] VITALS: BP 104/68
[2017-01-09] MEDS: PRENATAL VITAMIN 1 EA TAB PO SCH (08:50)
[2017-01-09] MEDS: FERROUS SULF 325 MG (IRON) TAB PO SCH (08:51)
[2017-01-09] MEDS: DOCUSATE SODIUM 100 MG (COLACE) CAP PO SCH (08:51)
[2017-01-09 09:00] VITALS: BP 103/69
--- OUTSIDE RECORDS SUMMARY | 2017-02-09 13:22 | XMS REPORT | Continuity of Care Document ---
Author Author [facility] Address Unknown Phone Unavailable Allergies Active Description Code Type Severity Reaction Onset Reported/Identified Relationship to Patient Clinical Status Yes Mucinex Drug Allergy 11/16/2010 Yes Mucinex Drug Allergy N/A N/A 11/16/2010 Yes guaifenesin [id number] Drug Allergy Mild N/A 12/30/2011 Medications Problems Date Dx Coded Attending Type Code Diagnosis Diagnosed By 05/19/2008 466.0 Bronchitis, Acute 05/19/2008 477.9 HAY FEVER 05/19/2008 YOSSI VILLEGAS MD 466.0 Bronchitis, Acute 05/19/2008 YOSSI VILLEGAS MD 477.9 HAY FEVER 05/19/2008 466.0 Bronchitis, Acute 05/19/2008 477.9 HAY FEVER 05/19/2008 466.0 Bronchitis, Acute 05/19/2008 477.9 HAY FEVER 05/19/2008 466.0 Bronchitis, Acute 05/19/2008 477.9 HAY FEVER 05/19/2008 466.0 Bronchitis, Acute 05/19/2008 477.9 HAY FEVER 05/19/2008 466.0 Bronchitis, Acute 05/19/2008 477.9 HAY FEVER 05/19/2008 JESÚS ARTEAGA DO 466.0 Bronchitis, Acute 05/19/2008 JESÚS ARTEAGA DO 477.9 HAY FEVER 05/19/2008 JORGE GYPSY RUIZIDI A 466.0 Bronchitis, Acute 05/19/2008 JORGE JOSEPH, ZOHREH A 477.9 HAY FEVER 05/19/2008 466.0 Bronchitis, Acute 05/19/2008 477.9 HAY FEVER 05/19/2008 JESÚS ARTEAGA DO 466.0 Bronchitis, Acute 05/19/2008 JESÚS ARTEAGA DO 477.9 HAY FEVER 05/19/2008 JORGEMaia RUIZ ZOHREH A 466.0 Bronchitis, Acute 05/19/2008 JORGE JOSEPH ZOHREH A 477.9 HAY FEVER 05/19/2008 JORGE CASH SURRENDER CALCULATOR, ZOHREH A 466.0 Bronchitis, Acute 05/19/2008 JORGE CASH SURRENDER CALCULATOR, ZOHREH A 477.9 HAY FEVER 05/19/2008 JORGE CASH SURRENDER CALCULATOR, ZOHREH A 466.0 Bronchitis, Acute 05/19/2008 JORGE CASH SURRENDER CALCULATOR, ZOHREH A 477.9 HAY FEVER 05/19/2008 SALOMÓN VEENKALEYNETTE R 466.0 Bronchitis, Acute 05/19/2008 SALOMÓN VEEN, NETTE R 477.9 HAY FEVER 05/19/2008 JESÚS ARTEAGA DO K 466.0 Bronchitis, Acute 05/19/2008 JESÚS ARTEAGA DO K 477.9 HAY FEVER 05/19/2008 JORGE CASH SURRENDER CALCULATOR, ZOHREH A 466.0 Bronchitis, Acute 05/19/2008 JORGE CASH SURRENDER CALCULATOR, ZOHREH A 477.9 HAY FEVER 05/19/2008 JACQUE CASH SURRENDER CALCULATOR, VERÓNICA R 466.0 Bronchitis, Acute 05/19/2008 JACQUE CASH SURRENDER CALCULATOR, VERÓNICA R 477.9 HAY FEVER 06/02/2008 786.2 Cough 06/02/2008 YOSSI VILLEGAS MD 786.2 Cough 06/02/2008 786.2 Cough 06/02/2008 786.2 Cough 06/02/2008 786.2 Cough 06/02/2008 786.2 Cough 06/02/2008 786.2 Cough 06/02/2008 JESÚS ARTEAGA DO K 786.2 Cough 06/02/2008 JORGE CASH SURRENDER CALCULATOR, ZOHREH A 786.2 Cough 06/02/2008 786.2 Cough 06/02/2008 JESÚS ARTEAGA DO K 786.2 Cough 06/02/2008 JORGE CASH SURRENDER CALCULATOR, ZOHREH A 786.2 Cough 06/02/2008 JORGE CASH SURRENDER CALCULATOR, ZOHREH A 786.2 Cough 06/02/2008 JORGE CASH SURRENDER CALCULATOR, ZOHREH A 786.2 Cough 06/02/2008 KALEY LORENZANA APRNRICIA R 786.2 Cough 06/02/2008 JESÚS ARTEAGA DO K 786.2 Cough 06/02/2008 JORGE CASH SURRENDER CALCULATOR, ZOHREH A 786.2 Cough 06/02/2008 JACQUE CASH SURRENDER CALCULATOR, VERÓNICA R 786.2 Cough 07/02/2008 840.9 Sprain/strain Shoulder/arm 07/02/2008 YOSSI VILLEGAS MD 840.9 Sprain/strain Shoulder/arm 07/02/2008 840.9 Sprain/strain Shoulder/arm 07/02/2008 840.9 Sprain/strain Shoulder/arm 07/02/2008 840.9 Sprain/strain Shoulder/arm 07/02/2008 840.9 Sprain/strain Shoulder/arm 07/02/2008 840.9 Sprain/strain Shoulder/arm 07/02/2008 JESÚS ARTEAGA DO 840.9 Sprain/strain Shoulder/arm 07/02/2008 JORGE RUIZ ZOHREH A 840.9 Sprain/strain Shoulder/arm 07/02/2008 840.9 Sprain/strain Shoulder/arm 07/02/2008 JESÚS ARTEAGA DO 840.9 Sprain/strain Shoulder/arm 07/02/2008 JORGE RUIZ ZOHREH A 840.9 Sprain/strain Shoulder/arm 07/02/2008 JORGEMaia RUIZ ZOHREH A 840.9 Sprain/strain Shoulder/arm 07/02/2008 JORGE RUIZ ZOHREH A 840.9 Sprain/strain Shoulder/arm 07/02/2008 NETTE LORENZANA APRN R 840.9 Sprain/strain Shoulder/arm 07/02/2008 JESÚS ARTEAGA DO 840.9 Sprain/strain Shoulder/arm 07/02/2008 JORGE RUIZ ZOHREH A 840.9 Sprain/strain Shoulder/arm 07/02/2008 ARVIND SANTILLAN APRNINA R 840.9 Sprain/strain Shoulder/arm 11/07/2008 296.90 Unspecified Episodic Mood Disorder 11/07/2008 YOSSI VILLEGAS MD 296.90 Unspecified Episodic Mood Disorder 11/07/2008 296.90 Unspecified Episodic Mood Disorder 11/07/2008 296.90 Unspecified Episodic Mood Disorder 11/07/2008 296.90 Unspecified Episodic Mood Disorder 11/07/2008 296.90 Unspecified Episodic Mood Disorder 11/07/2008 296.90 Unspecified Episodic Mood Disorder 11/07/2008 JESÚS ARTEAGA DO 296.90 Unspecified Episodic Mood Disorder 11/07/2008 ZOHREH PATEL APRN A 296.90 Unspecified Episodic Mood Disorder 11/07/2008 296.90 Unspecified Episodic Mood Disorder 11/07/2008 JUSTUS ARTEAGA DOA K 296.90 Unspecified Episodic Mood Disorder 11/07/2008 JORGE CASH SURRENDER CALCULATOR, ZOHREH A 296.90 Unspecified Episodic Mood Disorder 11/07/2008 JORGE CASH SURRENDER CALCULATOR, ZOHREH A 296.90 Unspecified Episodic Mood Disorder 11/07/2008 JORGE CASH SURRENDER CALCULATOR, ZOHREH A 296.90 Unspecified Episodic Mood Disorder 11/07/2008 NETTE LORENZANA APRN R 296.90 Unspecified Episodic Mood Disorder 11/07/2008 JUSTUS ARTEAGA DOA K 296.90 Unspecified Episodic Mood Disorder 11/07/2008 JORGE CASH SURRENDER CALCULATOR, ZOHREH A 296.90 Unspecified Episodic Mood Disorder 11/07/2008 VERÓNICA SANTILLAN APRN R 296.90 Unspecified Episodic Mood Disorder 12/21/2008 312.9 Unspecified Disturbance Of Conduct 12/21/2008 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 12/21/2008 YOSSI VILLEGAS MD 312.9 Unspecified Disturbance Of Conduct 12/21/2008 YOSSI VILLEGAS MD 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 12/21/2008 312.9 Unspecified Disturbance Of Conduct 12/21/2008 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 12/21/2008 312.9 Unspecified Disturbance Of Conduct 12/21/2008 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 12/21/2008 312.9 Unspecified Disturbance Of Conduct 12/21/2008 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 12/21/2008 312.9 Unspecified Disturbance Of Conduct 12/21/2008 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 12/21/2008 312.9 Unspecified Disturbance Of Conduct 12/21/2008 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 12/21/2008 JUSTUS ARTEAGA DOA K 312.9 Unspecified Disturbance Of Conduct 12/21/2008 JUSTUS ARTEAGA DOA K 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 12/21/2008 JORGE CASH SURRENDER CALCULATOR, ZOHREH A 312.9 Unspecified Disturbance Of Conduct 12/21/2008 JORGE CASH SURRENDER CALCULATOR, ZOHREH A 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 12/21/2008 312.9 Unspecified Disturbance Of Conduct 12/21/2008 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 12/21/2008 ARTEAGA DO JESÚS K 312.9 Unspecified Disturbance Of Conduct 12/21/2008 ARTEAGA DO JESÚS K 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 12/21/2008 JORGE CASH SURRENDER CALCULATOR, ZOHREH A 312.9 Unspecified Disturbance Of Conduct 12/21/2008 JORGE CASH SURRENDER CALCULATOR, ZOHREH A 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 12/21/2008 JORGE CASH SURRENDER CALCULATOR, ZOHREH A 312.9 Unspecified Disturbance Of Conduct 12/21/2008 JORGE CASH SURRENDER CALCULATOR, ZOHREH A 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 12/21/2008 JORGE CASH SURRENDER CALCULATOR, ZOHREH A 312.9 Unspecified Disturbance Of Conduct 12/21/2008 JORGE CASH SURRENDER CALCULATOR, ZOHREH A 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 12/21/2008 SALOMÓN RUIZ, NETTE R 312.9 Unspecified Disturbance Of Conduct 12/21/2008 KALEY LORENZANA APRNRICIA R 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 12/21/2008 CHANDLER SURESH JESÚS K 312.9 Unspecified Disturbance Of Conduct 12/21/2008 ARTEAGA DOJUSTUSA K 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 12/21/2008 JORGE CASH SURRENDER CALCULATOR, ZOHREH A 312.9 Unspecified Disturbance Of Conduct 12/21/2008 JORGE CASH SURRENDER CALCULATOR, ZOHREH A 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 12/21/2008 JACQUE CASH SURRENDER CALCULATOR, VERÓNICA R 312.9 Unspecified Disturbance Of Conduct 12/21/2008 JACQUE VEEN, VERÓNICA R 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 12/28/2008 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 12/28/2008 YOSSI VILLEGAS MD 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 12/28/2008 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 12/28/2008 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 12/28/2008 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 12/28/2008 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 12/28/2008 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 12/28/2008 JESÚS ARTEAGA DO K 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 12/28/2008 JORGE CASH SURRENDER CALCULATOR, ZOHREH A 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 12/28/2008 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 12/28/2008 JESÚS ARTEAGA DO K 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 12/28/2008 JORGE CASH SURRENDER CALCULATOR, ZOHREH A 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 12/28/2008 JORGE CASH SURRENDER CALCULATOR, ZOHREH A 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 12/28/2008 JORGE CASH SURRENDER CALCULATOR, ZOHREH A 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 12/28/2008 DEBI LORENZANA APRNIA R 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 12/28/2008 JUSTSU ARTEAGA DOA K 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 12/28/2008 JORGE CASH SURRENDER CALCULATOR, ZOHREH A 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 12/28/2008 JACQUE RUIZ, VERÓNICA R 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 01/05/2009 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, Predominantly Inattentive Type 01/05/2009 NELLY AVILES, YOSSI 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, Predominantly Inattentive Type 01/05/2009 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, Predominantly Inattentive Type 01/05/2009 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, Predominantly Inattentive Type 01/05/2009 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, Predominantly Inattentive Type 01/05/2009 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, Predominantly Inattentive Type 01/05/2009 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, Predominantly Inattentive Type 01/05/2009 JESÚS ARTEAGA DO K 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, Predominantly Inattentive Type 01/05/2009 JORGE CASH SURRENDER CALCULATOR, ZOHREH A 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, Predominantly Inattentive Type 01/05/2009 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, Predominantly Inattentive Type 01/05/2009 JUSTUS ARTEAGA DOA K 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, Predominantly Inattentive Type 01/05/2009 JORGE CASH SURRENDER CALCULATOR, ZOHREH A 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, Predominantly Inattentive Type 01/05/2009 JORGE CASH SURRENDER CALCULATOR, ZOHREH A 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, Predominantly Inattentive Type 01/05/2009 JORGE CASH SURRENDER CALCULATOR, ZOHREH A 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, Predominantly Inattentive Type 01/05/2009 KALEY LORENZANA APRNRICIA R 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, Predominantly Inattentive Type 01/05/2009 JESÚS ARTEAGA DO K 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, Predominantly Inattentive Type 01/05/2009 JORGE CASH SURRENDER CALCULATOR, ZOHREH A 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, Predominantly Inattentive Type 01/05/2009 JACQUE RUIZ, VERÓNICA R 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, Predominantly Inattentive Type 02/06/2009 313.9 Unspecified Emotional Disturbance Of Childhood Or Adolescence 02/06/2009 YOSSI VILLEGAS MD 313.9 Unspecified Emotional Disturbance Of Childhood Or Adolescence 02/06/2009 313.9 Unspecified Emotional Disturbance Of Childhood Or Adolescence 02/06/2009 313.9 Unspecified Emotional Disturbance Of Childhood Or Adolescence 02/06/2009 313.9 Unspecified Emotional Disturbance Of Childhood Or Adolescence 02/06/2009 313.9 Unspecified Emotional Disturbance Of Childhood Or Adolescence 02/06/2009 313.9 Unspecified Emotional Disturbance Of Childhood Or Adolescence 02/06/2009 JESÚS ARTEAGA DO 313.9 Unspecified Emotional Disturbance Of Childhood Or Adolescence 02/06/2009 JORGE CASH SURRENDER CALCULATOR, ZOHREH A 313.9 Unspecified Emotional Disturbance Of Childhood Or Adolescence 02/06/2009 313.9 Unspecified Emotional Disturbance Of Childhood Or Adolescence 02/06/2009 JESÚS ARTEAGA DO 313.9 Unspecified Emotional Disturbance Of Childhood Or Adolescence 02/06/2009 JORGE CASH SURRENDER CALCULATOR, ZOHREH A 313.9 Unspecified Emotional Disturbance Of Childhood Or Adolescence 02/06/2009 JORGE CASH SURRENDER CALCULATOR, ZOHREH A 313.9 Unspecified Emotional Disturbance Of Childhood Or Adolescence 02/06/2009 JORGE CASH SURRENDER CALCULATOR, ZOHREH A 313.9 Unspecified Emotional Disturbance Of Childhood Or Adolescence 02/06/2009 NETTE LORENZANA APRN R 313.9 Unspecified Emotional Disturbance Of Childhood Or Adolescence 02/06/2009 JESÚS ARTEAGA DO K 313.9 Unspecified Emotional Disturbance Of Childhood Or Adolescence 02/06/2009 JORGE CASH SURRENDER CALCULATOR, ZOHREH A 313.9 Unspecified Emotional Disturbance Of Childhood Or Adolescence 02/06/2009 VERÓNICA SANTILLAN APRN R 313.9 Unspecified Emotional Disturbance Of Childhood Or Adolescence 02/15/2009 493.90 ASTHMA EXERCISE-INDUCED 02/15/2009 V20.2 visit for: well child visit 02/15/2009 YOSSI VILLEGAS MD 493.90 ASTHMA EXERCISE-INDUCED 02/15/2009 YOSSI VILLEGAS MD V20.2 Visit For: Well Child Visit 02/15/2009 493.90 ASTHMA EXERCISE-INDUCED 02/15/2009 V20.2 Visit For: Well Child Visit 02/15/2009 493.90 ASTHMA EXERCISE-INDUCED 02/15/2009 V20.2 Visit For: Well Child Visit 02/15/2009 493.90 ASTHMA EXERCISE-INDUCED 02/15/2009 V20.2 Visit For: Well Child Visit 02/15/2009 493.90 ASTHMA EXERCISE-INDUCED 02/15/2009 V20.2 Visit For: Well Child Visit 02/15/2009 493.90 ASTHMA EXERCISE-INDUCED 02/15/2009 V20.2 Visit For: Well Child Visit 02/15/2009 ARTEAGA DO, JESÚS K 493.90 ASTHMA EXERCISE-INDUCED 02/15/2009 ARTEAGA DO, JESÚS K V20.2 Visit For: Well Child Visit 02/15/2009 JORGE CASH SURRENDER CALCULATOR, ZOHREH A 493.90 ASTHMA EXERCISE-INDUCED 02/15/2009 JORGE CASH SURRENDER CALCULATOR, ZOHREH A V20.2 Visit For: Well Child Visit 02/15/2009 493.90 ASTHMA EXERCISE-INDUCED 02/15/2009 V20.2 Visit For: Well Child Visit 02/15/2009 ARTEAGA DO, JESÚS K 493.90 ASTHMA EXERCISE-INDUCED 02/15/2009 ARTEAGA DO, JESÚS K V20.2 Visit For: Well Child Visit 02/15/2009 JORGE CASH SURRENDER CALCULATOR, ZOHREH A 493.90 ASTHMA EXERCISE-INDUCED 02/15/2009 JORGE CASH SURRENDER CALCULATOR, ZOHREH A V20.2 Visit For: Well Child Visit 02/15/2009 JORGE CASH SURRENDER CALCULATOR, ZOHREH A 493.90 ASTHMA EXERCISE-INDUCED 02/15/2009 JORGE CASH SURRENDER CALCULATOR, ZOHREH A V20.2 Visit For: Well Child Visit 02/15/2009 JORGE CASH SURRENDER CALCULATOR, ZOHREH A 493.90 ASTHMA EXERCISE-INDUCED 02/15/2009 JORGE CASH SURRENDER CALCULATOR, ZOHREH A V20.2 Visit For: Well Child Visit 02/15/2009 KALEY LORENZANA APRNRICIA R 493.90 ASTHMA EXERCISE-INDUCED 02/15/2009 SALOMÓN RUIZ NETTE R V20.2 Visit For: Well Child Visit 02/15/2009 ARTEAGA DO, JESÚS K 493.90 ASTHMA EXERCISE-INDUCED 02/15/2009 ARTEAGA DO, JESÚS K V20.2 Visit For: Well Child Visit 02/15/2009 JORGE CASH SURRENDER CALCULATOR, ZOHREH A 493.90 ASTHMA EXERCISE-INDUCED 02/15/2009 JORGE CASH SURRENDER CALCULATOR, ZOHREH A V20.2 Visit For: Well Child Visit 02/15/2009 JACQUE RUIZ, VERÓNICA R 493.90 ASTHMA EXERCISE-INDUCED 02/15/2009 JACQUE VEEN, VERÓNICA R V20.2 Visit For: Well Child Visit 04/21/2009 682.3 Cellulitis Of The Shoulder Left 04/21/2009 YOSSI VILLEGAS MD 682.3 Cellulitis Of The Shoulder Left 04/21/2009 682.3 Cellulitis Of The Shoulder Left 04/21/2009 682.3 Cellulitis Of The Shoulder Left 04/21/2009 682.3 Cellulitis Of The Shoulder Left 04/21/2009 682.3 Cellulitis Of The Shoulder Left 04/21/2009 682.3 Cellulitis Of The Shoulder Left 04/21/2009 ARTEAGA JUSTUS SURESHA K 682.3 Cellulitis Of The Shoulder Left 04/21/2009 JORGE CASH SURRENDER CALCULATOR, ZOHREH A 682.3 Cellulitis Of The Shoulder Left 04/21/2009 682.3 Cellulitis Of The Shoulder Left 04/21/2009 ARTEAGA DO JESÚS K 682.3 Cellulitis Of The Shoulder Left 04/21/2009 JORGE CASH SURRENDER CALCULATOR, ZOHREH A 682.3 Cellulitis Of The Shoulder Left 04/21/2009 JORGE CASH SURRENDER CALCULATOR, ZOHREH A 682.3 Cellulitis Of The Shoulder Left 04/21/2009 JORGE CASH SURRENDER CALCULATOR, ZOHREH A 682.3 Cellulitis Of The Shoulder Left 04/21/2009 NETTE LORENZANA APRN 682.3 Cellulitis Of The Shoulder Left 04/21/2009 ARTEAGA DO, JESÚS K 682.3 Cellulitis Of The Shoulder Left 04/21/2009 JORGE CASH SURRENDER CALCULATOR, ZOHREH A 682.3 Cellulitis Of The Shoulder Left 04/21/2009 VERÓNICA SANTILLAN APRN R 682.3 Cellulitis Of The Shoulder Left 06/01/2009 530.10 Esophagitis Unspecified 06/01/2009 V58.69 Medication High Risk 06/01/2009 YOSSI VILLEGAS MD 530.10 Esophagitis Unspecified 06/01/2009 YOSSI VILLEGAS MD V58.69 Medication High Risk 06/01/2009 530.10 Esophagitis Unspecified 06/01/2009 V58.69 Medication High Risk 06/01/2009 530.10 Esophagitis Unspecified 06/01/2009 V58.69 Medication High Risk 06/01/2009 530.10 Esophagitis Unspecified 06/01/2009 V58.69 Medication High Risk 06/01/2009 530.10 Esophagitis Unspecified 06/01/2009 V58.69 Medication High Risk 06/01/2009 530.10 Esophagitis Unspecified 06/01/2009 V58.69 Medication High Risk 06/01/2009 ARTEAGA DO, JESÚS K 530.10 Esophagitis Unspecified 06/01/2009 ARTEAGA DO, JESÚS K V58.69 Medication High Risk 06/01/2009 JORGE CASH SURRENDER CALCULATOR, ZOHREH A 530.10 Esophagitis Unspecified 06/01/2009 JORGE CASH SURRENDER CALCULATOR, ZOHREH A V58.69 Medication High Risk 06/01/2009 530.10 Esophagitis Unspecified 06/01/2009 V58.69 Medication High Risk 06/01/2009 ARTEAGA DO, JESÚS K 530.10 Esophagitis Unspecified 06/01/2009 ARTEAGA DO, JESÚS K V58.69 Medication High Risk 06/01/2009 JORGE CASH SURRENDER CALCULATOR, ZOHREH A 530.10 Esophagitis Unspecified 06/01/2009 OJRGE CASH SURRENDER CALCULATOR, ZOHREH A V58.69 Medication High Risk 06/01/2009 JORGE CASH SURRENDER CALCULATOR, ZOHREH A 530.10 Esophagitis Unspecified 06/01/2009 JORGE CASH SURRENDER CALCULATOR, ZOHREH A V58.69 Medication High Risk 06/01/2009 JORGE CASH SURRENDER CALCULATOR, ZOHREH A 530.10 Esophagitis Unspecified 06/01/2009 JORGE CASH SURRENDER CALCULATOR, ZOHREH A V58.69 Medication High Risk 06/01/2009 DEBI LORENZANA APRNIA R 530.10 Esophagitis Unspecified 06/01/2009 DEBI LORENZANA APRNIA R V58.69 Medication High Risk 06/01/2009 ARTEAGA DO JESÚS K 530.10 Esophagitis Unspecified 06/01/2009 ARTEAGA DO, JESÚS K V58.69 Medication High Risk 06/01/2009 JORGE CASH SURRENDER CALCULATOR, ZOHREH A 530.10 Esophagitis Unspecified 06/01/2009 JORGE CASH SURRENDER CALCULATOR, ZOHREH A V58.69 Medication High Risk 06/01/2009 JACQUE RUIZ VERÓNICA R 530.10 Esophagitis Unspecified 06/01/2009 JACQUE VEEN VERÓNICA R V58.69 Medication High Risk 09/18/2010 465.9 Upper Respiratory Infection 09/18/2010 NELLY AVILES, YOSSI 465.9 Upper Respiratory Infection 09/18/2010 465.9 Upper Respiratory Infection 09/18/2010 465.9 Upper Respiratory Infection 09/18/2010 465.9 Upper Respiratory Infection 09/18/2010 465.9 Upper Respiratory Infection 09/18/2010 465.9 Upper Respiratory Infection 09/18/2010 JESÚS ARTEAGA DO K 465.9 Upper Respiratory Infection 09/18/2010 JORGE CASH SURRENDER CALCULATOR, ZOHREH A 465.9 Upper Respiratory Infection 09/18/2010 465.9 Upper Respiratory Infection 09/18/2010 JESÚS ARTEAGA DO K 465.9 Upper Respiratory Infection 09/18/2010 JORGE CASH SURRENDER CALCULATOR, ZOHREH A 465.9 Upper Respiratory Infection 09/18/2010 JORGE CASH SURRENDER CALCULATOR, ZOHREH A 465.9 Upper Respiratory Infection 09/18/2010 JORGE CASH SURRENDER CALCULATOR, ZOHREH A 465.9 Upper Respiratory Infection 09/18/2010 NETTE LORENZANA APRN 465.9 Upper Respiratory Infection 09/18/2010 JESÚS ARTEAGA DO K 465.9 Upper Respiratory Infection 09/18/2010 JORGE CASH SURRENDER CALCULATOR, ZOHREH A 465.9 Upper Respiratory Infection 09/18/2010 ARVIND SANTILLAN APRNINA R 465.9 Upper Respiratory Infection 12/27/2010 309.3 Ad Adj D/o Dis Con 12/27/2010 YOSSI VILLEGAS MD 309.3 Ad Adj D/o Dis Con 12/27/2010 309.3 Ad Adj D/o Dis Con 12/27/2010 309.3 Ad Adj D/o Dis Con 12/27/2010 309.3 Ad Adj D/o Dis Con 12/27/2010 309.3 Ad Adj D/o Dis Con 12/27/2010 309.3 Ad Adj D/o Dis Con 12/27/2010 JESÚS ARTEAGA DO 309.3 Ad Adj D/o Dis Con 12/27/2010 JORGE APRN, ZOHREH A 309.3 Ad Adj D/o Dis Con 12/27/2010 309.3 Ad Adj D/o Dis Con 12/27/2010 JESÚS ARTEAGA DO 309.3 Ad Adj D/o Dis Con 12/27/2010 JORGEMaia RUIZ ZOHREH A 309.3 Ad Adj D/o Dis Con 12/27/2010 JORGE JOSEPH ZOHREH A 309.3 Ad Adj D/o Dis Con 12/27/2010 JORGE CASH SURRENDER CALCULATOR, ZOHREH A 309.3 Ad Adj D/o Dis Con 12/27/2010 SALOMÓN CASH SURRENDER CALCULATOR, NETTE R 309.3 Ad Adj D/o Dis Con 12/27/2010 ARTEAGA DOJESÚS K 309.3 Ad Adj D/o Dis Con 12/27/2010 JORGE CASH SURRENDER CALCULATOR, ZOHREH A 309.3 Ad Adj D/o Dis Con 12/27/2010 JACQUE CASH SURRENDER CALCULATOR, VERÓNICA R 309.3 Ad Adj D/o Dis Con 01/17/2011 V05.8 GARDASIL 01/17/2011 YOSSI VILLEGAS MD V05.8 Gardasil 01/17/2011 V05.8 Gardasil 01/17/2011 V05.8 Gardasil 01/17/2011 V05.8 Gardasil 01/17/2011 V05.8 Gardasil 01/17/2011 V05.8 Gardasil 01/17/2011 JESÚS ARTEAGA DO K V05.8 Gardasil 01/17/2011 JORGE CASH SURRENDER CALCULATOR, ZOHREH A V05.8 Gardasil 01/17/2011 V05.8 Gardasil 01/17/2011 ARTEAGA JESÚS SURESH K V05.8 Gardasil 01/17/2011 JORGE CASH SURRENDER CALCULATOR, ZOHREH A V05.8 Gardasil 01/17/2011 JORGE CASH SURRENDER CALCULATOR, ZOHREH A V05.8 Gardasil 01/17/2011 JORGE CASH SURRENDER CALCULATOR, ZOHREH A V05.8 Gardasil 01/17/2011 SALOMÓN CASH SURRENDER CALCULATORNETTE R V05.8 Gardasil 01/17/2011 ARTEAGA DOJESÚS K V05.8 Gardasil 01/17/2011 JORGE CASH SURRENDER CALCULATOR, ZOHREH A V05.8 Gardasil 01/17/2011 JACQUE CASH SURRENDER CALCULATOR, VERÓNICA R V05.8 Gardasil 01/31/2011 309.3 Ad Adj D/o Dis Con 01/31/2011 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 01/31/2011 YOSSI VILLEGAS MD 309.3 Ad Adj D/o Dis Con 01/31/2011 YOSSI VILLEGAS MD 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 01/31/2011 309.3 Ad Adj D/o Dis Con 01/31/2011 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 01/31/2011 309.3 Ad Adj D/o Dis Con 01/31/2011 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 01/31/2011 309.3 Ad Adj D/o Dis Con 01/31/2011 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 01/31/2011 309.3 Ad Adj D/o Dis Con 01/31/2011 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 01/31/2011 309.3 Ad Adj D/o Dis Con 01/31/2011 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 01/31/2011 JESÚS ARTEAGA DO K 309.3 Ad Adj D/o Dis Con 01/31/2011 JESÚS ARTEAGA DO K 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 01/31/2011 JORGE CASH SURRENDER CALCULATOR, ZOHREH A 309.3 Ad Adj D/o Dis Con 01/31/2011 JORGE CASH SURRENDER CALCULATOR, ZOHREH A 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 01/31/2011 309.3 Ad Adj D/o Dis Con 01/31/2011 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 01/31/2011 JESÚS ARTEAGA DO K 309.3 Ad Adj D/o Dis Con 01/31/2011 JESÚS ARTEAGA DO K 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 01/31/2011 JORGE CASH SURRENDER CALCULATOR, ZOHREH A 309.3 Ad Adj D/o Dis Con 01/31/2011 JORGE CASH SURRENDER CALCULATOR, ZOHREH A 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 01/31/2011 JORGE CASH SURRENDER CALCULATOR, ZOHREH A 309.3 Ad Adj D/o Dis Con 01/31/2011 JORGE CASH SURRENDER CALCULATOR, ZOHREH A 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 01/31/2011 JORGE CASH SURRENDER CALCULATOR, ZOHREH A 309.3 Ad Adj D/o Dis Con 01/31/2011 JORGE CASH SURRENDER CALCULATOR, ZOHREH A 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 01/31/2011 NETTE LORENZANA APRN R 309.3 Ad Adj D/o Dis Con 01/31/2011 NETTE LORENZANA APRN 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 01/31/2011 JESÚS ARTEAGA DO K 309.3 Ad Adj D/o Dis Con 01/31/2011 ARTEAGA DOJUSTUSA K 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 01/31/2011 JORGE CASH SURRENDER CALCULATOR, ZOHREH A 309.3 Ad Adj D/o Dis Con 01/31/2011 JORGE CASH SURRENDER CALCULATOR, ZOHREH A 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 01/31/2011 VERÓNICA SANTILLAN APRN R 309.3 Ad Adj D/o Dis Con 01/31/2011 VERÓNICA SANTILLAN APRN R 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 06/26/2011 724.2 LUMBAGO 06/26/2011 YOSSI VILLEGAS MD 724.2 Lumbago 06/26/2011 724.2 Lumbago 06/26/2011 724.2 Lumbago 06/26/2011 724.2 Lumbago 06/26/2011 724.2 Lumbago 06/26/2011 724.2 Lumbago 06/26/2011 ARTEAGA JESÚS SURESH K 724.2 Lumbago 06/26/2011 JORGE CASH SURRENDER CALCULATOR, ZOHREH A 724.2 Lumbago 06/26/2011 724.2 Lumbago 06/26/2011 ARTEAGA JESÚS SURESH K 724.2 Lumbago 06/26/2011 JORGE CASH SURRENDER CALCULATOR, ZOHREH A 724.2 Lumbago 06/26/2011 JORGE CASH SURRENDER CALCULATOR, ZOHREH A 724.2 Lumbago 06/26/2011 JORGE CASH SURRENDER CALCULATOR, ZOHREH A 724.2 Lumbago 06/26/2011 NETTE LORENZANA APRN 724.2 Lumbago 06/26/2011 ARTEAGA DOJESÚS K 724.2 Lumbago 06/26/2011 JORGE CASH SURRENDER CALCULATOR, ZOHREH A 724.2 Lumbago 06/26/2011 VERÓNICA SANTILLAN APRN R 724.2 Lumbago 09/19/2011 300.00 AN ANXIETY UNSPEC 09/19/2011 YOSSI VILLEGAS MD 300.00 AN ANXIETY UNSPEC 09/19/2011 300.00 AN ANXIETY UNSPEC 09/19/2011 300.00 AN ANXIETY UNSPEC 09/19/2011 300.00 AN ANXIETY UNSPEC 09/19/2011 300.00 AN ANXIETY UNSPEC 09/19/2011 300.00 AN ANXIETY UNSPEC 09/19/2011 ARTEAGA DO, JESÚS K 300.00 AN ANXIETY UNSPEC 09/19/2011 JORGE CASH SURRENDER CALCULATOR, ZOHREH A 300.00 AN ANXIETY UNSPEC 09/19/2011 300.00 AN ANXIETY UNSPEC 09/19/2011 ARTEAGA DO, JESÚS K 300.00 AN ANXIETY UNSPEC 09/19/2011 JORGE CASH SURRENDER CALCULATOR, ZOHREH A 300.00 AN ANXIETY UNSPEC 09/19/2011 JORGE CASH SURRENDER CALCULATOR, ZOHREH A 300.00 AN ANXIETY UNSPEC 09/19/2011 JORGE CASH SURRENDER CALCULATOR, ZOHREH A 300.00 AN ANXIETY UNSPEC 09/19/2011 LORENZANA CASH SURRENDER CALCULATOR, NETTE R 300.00 AN ANXIETY UNSPEC 09/19/2011 ARTEAGA DO, JESÚS K 300.00 AN ANXIETY UNSPEC 09/19/2011 JORGE CASH SURRENDER CALCULATOR, ZOHREH A 300.00 AN ANXIETY UNSPEC 09/19/2011 JACQUE CASH SURRENDER CALCULATOR VERÓNICA R 300.00 AN ANXIETY UNSPEC 09/22/2011 Ot 644.03 THRT SINAI LABOR-ANTEPART 11/27/2011 Ot 644.03 THRT SINAI LABOR-ANTEPART 12/30/2011 Ot 644.13 THREAT LABOR NEC-ANTEPAR 01/01/2012 Ot 645.11 POST TERM PREG, DELIV W/WO MENTION OF AN 01/01/2012 Ot 659.71 ABN DEL FET HT RT/RHYTHM,W OR W/O MENTIO 01/01/2012 Ot 663.31 CORD ENTANGLE NEC-DELIV 01/01/2012 Ot V27.0 DELIVER-SINGLE LIVEBORN 03/24/2012 309.9 AD ADJ D/O NOS 03/24/2012 684 IMPETIGO 03/24/2012 V03.89 MENINGOCOCCAL DX 03/24/2012 YOSSI VILLEGAS MD 309.9 AD ADJ D/O NOS 03/24/2012 YOSSI VILLEGAS MD 684 Impetigo 03/24/2012 YOSSI VILLEGAS MD V03.89 Meningococcal Dx 03/24/2012 309.9 AD ADJ D/O NOS 03/24/2012 684 Impetigo 03/24/2012 V03.89 Meningococcal Dx 03/24/2012 309.9 AD ADJ D/O NOS 03/24/2012 684 Impetigo 03/24/2012 V03.89 Meningococcal Dx 03/24/2012 309.9 AD ADJ D/O NOS 03/24/2012 684 Impetigo 03/24/2012 V03.89 Meningococcal Dx 03/24/2012 309.9 AD ADJ D/O NOS 03/24/2012 684 Impetigo 03/24/2012 V03.89 Meningococcal Dx 03/24/2012 309.9 AD ADJ D/O NOS 03/24/2012 684 Impetigo 03/24/2012 V03.89 Meningococcal Dx 03/24/2012 JESÚS ARTEAGA DO 309.9 AD ADJ D/O NOS 03/24/2012 JESÚS ARTEAGA DO K 684 Impetigo 03/24/2012 JESÚS ARTEAGA DO V03.89 Meningococcal Dx 03/24/2012 JORGE CASH SURRENDER CALCULATOR, ZOHREH A 309.9 AD ADJ D/O NOS 03/24/2012 JORGE CASH SURRENDER CALCULATOR, ZOHREH A 684 Impetigo 03/24/2012 JORGE CASH SURRENDER CALCULATOR, ZOHREH A V03.89 Meningococcal Dx 03/24/2012 309.9 AD ADJ D/O NOS 03/24/2012 684 Impetigo 03/24/2012 V03.89 Meningococcal Dx 03/24/2012 JESÚS ARTEAGA DO 309.9 AD ADJ D/O NOS 03/24/2012 JESÚS ARTEAGA DO K 684 Impetigo 03/24/2012 JESÚS ARTEAGA DO V03.89 Meningococcal Dx 03/24/2012 JORGE CASH SURRENDER CALCULATOR, ZOHREH A 309.9 AD ADJ D/O NOS 03/24/2012 JORGE CASH SURRENDER CALCULATOR, ZOHREH A 684 Impetigo 03/24/2012 JORGE CASH SURRENDER CALCULATOR, ZOHREH A V03.89 Meningococcal Dx 03/24/2012 JORGE CASH SURRENDER CALCULATOR, ZOHREH A 309.9 AD ADJ D/O NOS 03/24/2012 JORGE CASH SURRENDER CALCULATOR, ZOHREH A 684 Impetigo 03/24/2012 JORGE CASH SURRENDER CALCULATOR, ZOHREH A V03.89 Meningococcal Dx 03/24/2012 JOREG CASH SURRENDER CALCULATOR, ZOHREH A 309.9 AD ADJ D/O NOS 03/24/2012 JORGE CASH SURRENDER CALCULATOR, ZOHREH A 684 Impetigo 03/24/2012 JORGE CASH SURRENDER CALCULATOR, ZOHREH A V03.89 Meningococcal Dx 03/24/2012 LORENZANA CASH SURRENDER CALCULATOR, NETTE R 309.9 AD ADJ D/O NOS 03/24/2012 LORENZANA CASH SURRENDER CALCULATOR NETTE R 684 Impetigo 03/24/2012 LORENZANA CASH SURRENDER CALCULATOR, NETTE R V03.89 Meningococcal Dx 03/24/2012 ARTEAGA DO, JESÚS K 309.9 AD ADJ D/O NOS 03/24/2012 ARTEAGA DO JESÚS K 684 Impetigo 03/24/2012 ARTEAGA DO, JESÚS K V03.89 Meningococcal Dx 03/24/2012 JORGE CASH SURRENDER CALCULATOR, ZOHREH A 309.9 AD ADJ D/O NOS 03/24/2012 JORGE CASH SURRENDER CALCULATOR, ZOHREH A 684 Impetigo 03/24/2012 JORGE CASH SURRENDER CALCULATOR, ZOHREH A V03.89 Meningococcal Dx 03/24/2012 JACQUE CASH SURRENDER CALCULATOR, VERÓNICA R 309.9 AD ADJ D/O NOS 03/24/2012 JACQUE CASH SURRENDER CALCULATOR, VERÓNICA R 684 Impetigo 03/24/2012 JACQUE CASH SURRENDER CALCULATOR, VERÓNICA R V03.89 Meningococcal Dx 05/25/2012 V74.1 TB SCREENING 05/25/2012 YOSSI VILLEGAS MD V74.1 Tb Screening 05/25/2012 V74.1 Tb Screening 05/25/2012 V74.1 Tb Screening 05/25/2012 V74.1 Tb Screening 05/25/2012 V74.1 Tb Screening 05/25/2012 V74.1 Tb Screening 05/25/2012 ARTEAGA JUSTUS SURESHA K V74.1 Tb Screening 05/25/2012 JORGE APRN, ZOHREH A V74.1 Tb Screening 05/25/2012 V74.1 Tb Screening 05/25/2012 ARTEAGA DOJUSTUSA K V74.1 Tb Screening 05/25/2012 JORGE CASH SURRENDER CALCULATOR, ZOHREH A V74.1 Tb Screening 05/25/2012 JORGE APRN, ZOHREH A V74.1 Tb Screening 05/25/2012 JORGE APRN, ZOHREH A V74.1 Tb Screening 05/25/2012 NETTE LORENZANA APRN R V74.1 Tb Screening 05/25/2012 ARTEAGA JUSTUS SURESHA K V74.1 Tb Screening 05/25/2012 JORGE CASH SURRENDER CALCULATOR, ZOHREH A V74.1 Tb Screening 05/25/2012 JACQUE CASH SURRENDER CALCULATOR, VERÓNICA R V74.1 Tb Screening 10/14/2012 V70.3 OTHER GENERAL MEDICAL EXAMINATION FOR ADMINISTRATIVE PURPOSES 10/14/2012 YOSSI VILLEGAS MD V70.3 Other General Medical Examination For Administrative Purposes 10/14/2012 V70.3 Other General Medical Examination For Administrative Purposes 10/14/2012 V70.3 Other General Medical Examination For Administrative Purposes 10/14/2012 V70.3 Other General Medical Examination For Administrative Purposes 10/14/2012 V70.3 Other General Medical Examination For Administrative Purposes 10/14/2012 V70.3 Other General Medical Examination For Administrative Purposes 10/14/2012 JESÚS ARTEAGA DO K V70.3 Other General Medical Examination For Administrative Purposes 10/14/2012 JORGE CASH SURRENDER CALCULATOR, ZOHREH A V70.3 Other General Medical Examination For Administrative Purposes 10/14/2012 V70.3 Other General Medical Examination For Administrative Purposes 10/14/2012 JESÚS ARTEAGA DO K V70.3 Other General Medical Examination For Administrative Purposes 10/14/2012 JORGE CASH SURRENDER CALCULATOR, ZOHREH A V70.3 Other General Medical Examination For Administrative Purposes 10/14/2012 JORGE CASH SURRENDER CALCULATOR, ZOHERH A V70.3 Other General Medical Examination For Administrative Purposes 10/14/2012 JORGE CASH SURRENDER CALCULATOR, ZOHREH A V70.3 Other General Medical Examination For Administrative Purposes 10/14/2012 SALOMÓN RUIZ, NETTE R V70.3 Other General Medical Examination For Administrative Purposes 10/14/2012 JESÚS ARTEAGA DO K V70.3 Other General Medical Examination For Administrative Purposes 10/14/2012 JORGE CASH SURRENDER CALCULATOR, ZOHREH A V70.3 Other General Medical Examination For Administrative Purposes 10/14/2012 JACQUE CASH SURRENDER CALCULATOR, VERÓNICA R V70.3 Other General Medical Examination For Administrative Purposes 11/27/2012 YOSSI VILLEGAS MD 314.00 ATTENTION DEFICIT DISORDER OF CHILDHOOD WITHOUT HYPERACTIVITY 11/27/2012 YOSSI VILLEGAS MD V58.69 LONG-TERM (CURRENT) USE OF OTHER MEDICATIONS 11/27/2012 314.00 ATTENTION DEFICIT DISORDER OF CHILDHOOD WITHOUT HYPERACTIVITY 11/27/2012 V58.69 LONG-TERM (CURRENT) USE OF OTHER MEDICATIONS 11/27/2012 314.00 ATTENTION DEFICIT DISORDER OF CHILDHOOD WITHOUT HYPERACTIVITY 11/27/2012 V58.69 LONG-TERM (CURRENT) USE OF OTHER MEDICATIONS 11/27/2012 314.00 ATTENTION DEFICIT DISORDER OF CHILDHOOD WITHOUT HYPERACTIVITY 11/27/2012 V58.69 LONG-TERM (CURRENT) USE OF OTHER MEDICATIONS 11/27/2012 314.00 ATTENTION DEFICIT DISORDER OF CHILDHOOD WITHOUT HYPERACTIVITY 11/27/2012 V58.69 LONG-TERM (CURRENT) USE OF OTHER MEDICATIONS 11/27/2012 314.00 ATTENTION DEFICIT DISORDER OF CHILDHOOD WITHOUT HYPERACTIVITY 11/27/2012 V58.69 LONG-TERM (CURRENT) USE OF OTHER MEDICATIONS 11/27/2012 JESÚS ARTEAGA DO 314.00 ATTENTION DEFICIT DISORDER OF CHILDHOOD WITHOUT HYPERACTIVITY 11/27/2012 JESÚS ARTEAGA DO V58.69 LONG-TERM (CURRENT) USE OF OTHER MEDICATIONS 11/27/2012 JORGE VEEN, ZOHREH A 314.00 ATTENTION DEFICIT DISORDER OF CHILDHOOD WITHOUT HYPERACTIVITY 11/27/2012 JORGE VEEN, ZOHREH A V58.69 LONG-TERM (CURRENT) USE OF OTHER MEDICATIONS 11/27/2012 314.00 ATTENTION DEFICIT DISORDER OF CHILDHOOD WITHOUT HYPERACTIVITY 11/27/2012 V58.69 LONG-TERM (CURRENT) USE OF OTHER MEDICATIONS 11/27/2012 JESÚS ARTEAGA DO 314.00 ATTENTION DEFICIT DISORDER OF CHILDHOOD WITHOUT HYPERACTIVITY 11/27/2012 JESÚS ARTEAGA DO V58.69 LONG-TERM (CURRENT) USE OF OTHER MEDICATIONS 11/27/2012 JORGE CASH SURRENDER CALCULATOR, ZOHREH A 314.00 ATTENTION DEFICIT DISORDER OF CHILDHOOD WITHOUT HYPERACTIVITY 11/27/2012 JORGEJEANIE VEEN, ZOHREH A V58.69 LONG-TERM (CURRENT) USE OF OTHER MEDICATIONS 11/27/2012 JORGE CASH SURRENDER CALCULATOR, ZOHREH A 314.00 ATTENTION DEFICIT DISORDER OF CHILDHOOD WITHOUT HYPERACTIVITY 11/27/2012 JORGE CASH SURRENDER CALCULATOR, ZOHREH A V58.69 LONG-TERM (CURRENT) USE OF OTHER MEDICATIONS 11/27/2012 JORGE CASH SURRENDER CALCULATOR, ZOHREH A 314.00 ATTENTION DEFICIT DISORDER OF CHILDHOOD WITHOUT HYPERACTIVITY 11/27/2012 JORGE CASH SURRENDER CALCULATOR, ZOHREH A V58.69 LONG-TERM (CURRENT) USE OF OTHER MEDICATIONS 11/27/2012 NETTE LORENZANA APRN 314.00 ATTENTION DEFICIT DISORDER OF CHILDHOOD WITHOUT HYPERACTIVITY 11/27/2012 NETTE LORENZANA APRN V58.69 LONG-TERM (CURRENT) USE OF OTHER MEDICATIONS 11/27/2012 JESÚS ARTEAGA DO K 314.00 ATTENTION DEFICIT DISORDER OF CHILDHOOD WITHOUT HYPERACTIVITY 11/27/2012 JESÚS ARTEAGA DO K V58.69 LONG-TERM (CURRENT) USE OF OTHER MEDICATIONS 11/27/2012 JORGE CASH SURRENDER CALCULATOR, ZOHREH A 314.00 ATTENTION DEFICIT DISORDER OF CHILDHOOD WITHOUT HYPERACTIVITY 11/27/2012 JORGE CASH SURRENDER CALCULATOR, ZOHREH A V58.69 LONG-TERM (CURRENT) USE OF OTHER MEDICATIONS 11/27/2012 JACQUE VEEN, VERÓNICA R 314.00 ATTENTION DEFICIT DISORDER OF CHILDHOOD WITHOUT HYPERACTIVITY 11/27/2012 JACQUE CASH SURRENDER CALCULATOR, VERÓNICA R V58.69 LONG-TERM (CURRENT) USE OF OTHER MEDICATIONS 12/10/2012 461.9 SINUSITIS ACUTE 12/10/2012 461.9 SINUSITIS ACUTE 12/10/2012 461.9 Sinusitis Acute 12/10/2012 461.9 Sinusitis Acute 12/10/2012 461.9 Sinusitis Acute 12/10/2012 JESÚS ARTEAGA DO K 461.9 Sinusitis Acute 12/10/2012 JORGE CASH SURRENDER CALCULATOR, ZOHREH A 461.9 Sinusitis Acute 12/10/2012 461.9 Sinusitis Acute 12/10/2012 JESÚS ARTEAGA DO K 461.9 Sinusitis Acute 12/10/2012 JORGE CASH SURRENDER CALCULATOR, ZOHREH A 461.9 Sinusitis Acute 12/10/2012 JORGE CASH SURRENDER CALCULATOR, ZOHREH A 461.9 Sinusitis Acute 12/10/2012 JORGE CASH SURRENDER CALCULATOR, ZOHREH A 461.9 Sinusitis Acute 12/10/2012 NETTE LORENZANA APRN 461.9 Sinusitis Acute 12/10/2012 JESÚS ARTEAGA DO K 461.9 Sinusitis Acute 12/10/2012 JORGE CASH SURRENDER CALCULATOR, ZOHREH A 461.9 Sinusitis Acute 12/10/2012 JACQUE RUIZ, VERÓNICA R 461.9 Sinusitis Acute 01/01/2013 133.0 SCABIES 01/01/2013 133.0 Scabies 01/01/2013 133.0 Scabies 01/01/2013 133.0 Scabies 01/01/2013 JESÚS ARTEAGA DO K 133.0 Scabies 01/01/2013 JORGE CASH SURRENDER CALCULATOR, ZOHREH A 133.0 Scabies 01/01/2013 133.0 Scabies 01/01/2013 ARTEAGA DO, JESÚS K 133.0 Scabies 01/01/2013 JORGE CASH SURRENDER CALCULATOR, ZOHREH A 133.0 Scabies 01/01/2013 JORGE CASH SURRENDER CALCULATOR, ZOHREH A 133.0 Scabies 01/01/2013 JORGE CASH SURRENDER CALCULATOR, ZOHREH A 133.0 Scabies 01/01/2013 KALEY LORENZANA APRNRICIA R 133.0 Scabies 01/01/2013 ARTEAGA DO, JESÚS K 133.0 Scabies 01/01/2013 JORGE CASH SURRENDER CALCULATOR, ZOHREH A 133.0 Scabies 01/01/2013 JACQUE CASH SURRENDER CALCULATOR, VERÓNICA R 133.0 Scabies 03/05/2013 368.10 VISUAL DISTURBANCE UNSPECIFIED 03/05/2013 368.10 VISUAL DISTURBANCE UNSPECIFIED 03/05/2013 ARTEAGA DO, JESÚS K 368.10 VISUAL DISTURBANCE UNSPECIFIED 03/05/2013 JORGE CASH SURRENDER CALCULATOR, ZOHREH A 368.10 VISUAL DISTURBANCE UNSPECIFIED 03/05/2013 368.10 VISUAL DISTURBANCE UNSPECIFIED 03/05/2013 ARTEAGA DO, JESÚS K 368.10 VISUAL DISTURBANCE UNSPECIFIED 03/05/2013 JORGE CASH SURRENDER CALCULATOR, ZOHREH A 368.10 VISUAL DISTURBANCE UNSPECIFIED 03/05/2013 JORGE CASH SURRENDER CALCULATOR, ZOHREH A 368.10 VISUAL DISTURBANCE UNSPECIFIED 03/05/2013 JORGE CASH SURRENDER CALCULATOR, ZOHREH A 368.10 VISUAL DISTURBANCE UNSPECIFIED 03/05/2013 DEBI LORENZANA APRNIA R 368.10 VISUAL DISTURBANCE UNSPECIFIED 03/05/2013 ARTEAGA DO, JESÚS K 368.10 VISUAL DISTURBANCE UNSPECIFIED 03/05/2013 JORGE CASH SURRENDER CALCULATOR, ZOHREH A 368.10 VISUAL DISTURBANCE UNSPECIFIED 03/05/2013 JACQUE CASH SURRENDER CALCULATOR, VERÓNICA R 368.10 VISUAL DISTURBANCE UNSPECIFIED 07/23/2013 ARTEAGA DO, JESÚS K V25.9 CONTRACEPTION MANAGEMENT 07/23/2013 JORGE CASH SURRENDER CALCULATOR, ZOHREH A V25.9 CONTRACEPTION MANAGEMENT 07/23/2013 V25.9 CONTRACEPTION MANAGEMENT 07/23/2013 ARTEAGA DO JESÚS K V25.9 CONTRACEPTION MANAGEMENT 07/23/2013 JORGE CASH SURRENDER CALCULATOR, ZOHREH A V25.9 CONTRACEPTION MANAGEMENT 07/23/2013 JORGE CASH SURRENDER CALCULATOR, ZOHREH A V25.9 CONTRACEPTION MANAGEMENT 07/23/2013 JORGE CASH SURRENDER CALCULATOR, ZOHREH A V25.9 CONTRACEPTION MANAGEMENT 07/23/2013 NETTE LORENZANA APRN R V25.9 CONTRACEPTION MANAGEMENT 07/23/2013 ARTEAGA DO, JESÚS K V25.9 CONTRACEPTION MANAGEMENT 07/23/2013 JORGE CASH SURRENDER CALCULATOR, ZOHREH A V25.9 CONTRACEPTION MANAGEMENT 07/23/2013 JACQUE CASH SURRENDER CALCULATOR, VERÓNICA R V25.9 CONTRACEPTION MANAGEMENT 10/12/2013 JORGE CASH SURRENDER CALCULATOR, ZOHREH A 599.70 HEMATURIA UNSPECIFIED 10/12/2013 JORGE CASH SURRENDER CALCULATOR, ZOHREH A V74.5 STD SCREEN 10/12/2013 599.70 HEMATURIA UNSPECIFIED 10/12/2013 V74.5 STD SCREEN 10/12/2013 ARTEAGA DO, JESÚS K 599.70 HEMATURIA UNSPECIFIED 10/12/2013 ARTEAGA DO, JESÚS K V74.5 STD SCREEN 10/12/2013 JORGE CASH SURRENDER CALCULATOR, ZOHREH A 599.70 HEMATURIA UNSPECIFIED 10/12/2013 JORGE CASH SURRENDER CALCULATOR, ZOHREH A V74.5 STD SCREEN 10/12/2013 JORGE CASH SURRENDER CALCULATOR, ZOHREH A 599.70 HEMATURIA UNSPECIFIED 10/12/2013 JORGE CASH SURRENDER CALCULATOR, ZOHREH A V74.5 STD SCREEN 10/12/2013 JORGE CASH SURRENDER CALCULATOR, ZOHREH A 599.70 HEMATURIA UNSPECIFIED 10/12/2013 JORGE CASH SURRENDER CALCULATOR, ZOHREH A V74.5 STD SCREEN 10/12/2013 DEBI LORENZANA APRNIA R 599.70 HEMATURIA UNSPECIFIED 10/12/2013 DEBI LORENZANA APRNIA R V74.5 STD SCREEN 10/12/2013 ARTEAGA DO, JESÚS K 599.70 HEMATURIA UNSPECIFIED 10/12/2013 ARTEAGA DO, JESÚS K V74.5 STD SCREEN 10/12/2013 JORGE CASH SURRENDER CALCULATOR, ZOHREH A 599.70 HEMATURIA UNSPECIFIED 10/12/2013 JORGE CASH SURRENDER CALCULATOR, ZOHREH A V74.5 STD SCREEN 10/12/2013 JACQUE CASH SURRENDER CALCULATOR, VERÓNICA R 599.70 HEMATURIA UNSPECIFIED 10/12/2013 JACQUE CASH SURRENDER CALCULATOR, VERÓNICA R V74.5 STD SCREEN 03/28/2014 MERCED KIDD L Ot 276.50 VOLUME DEPLETION, UNSPECIFIED 03/28/2014 MERCED KIDD Ot 626.2 EXCESSIVE MENSTRUATION 03/28/2014 MERCED KIDD Ot 789.00 ABDOMINAL PAIN, UNSPECIFIED SITE 09/19/2014 ZOHREH PATEL APRN 625.8 OTHER SPECIFIED SYMPTOMS ASSOCIATED WITH FEMALE GENITAL ORGANS 09/19/2014 VERÓNICA SANTILLAN APRN R 625.8 OTHER SPECIFIED SYMPTOMS ASSOCIATED WITH FEMALE GENITAL ORGANS 10/29/2014 DEJON AVILES, RUPINDER Doran Ot 599.0 URIN TRACT INFECTION NOS 10/29/2014 DEJON AVILES, RUPINDER Doran Ot 643.03 MILD HYPEREMESIS-ANTEPAR 10/29/2014 DEJON AVILES, RUPINDER A Ot 646.63 INFECTION-ANTEPARTUM 11/01/2014 FLIP ESPARZA DO Ot 039.8 ACTINOMYCOSIS NEC 11/01/2014 FLIP ESPARZA DO Ot 599.0 URIN TRACT INFECTION NOS 11/01/2014 FLIP ESPARZA DO C Ot 634.71 SPON AB W COMPL NEC-INC 11/08/2014 ECHO ALEXANDRE DO Ot 789.09 ABDOMINAL PAIN, OTHER SPECIFIED SITE 12/27/2014 VERÓNICA SANTILLAN APRN R 719.45 PAIN IN JOINT INVOLVING PELVIC REGION AND THIGH 01/14/2015 JAMA TORREZ DO Ot 623.8 NONINFLAM DIS VAGINA NEC 01/14/2015 JAMA TORREZ DO K Ot 634.90 SPON ABORT UNCOMPL-UNSP 02/02/2015 AMANDA HOWARD MD Ot 623.8 NONINFLAM DIS VAGINA NEC 02/02/2015 AMANDA HOWARD MD Ot 625.9 FEM GENITAL SYMPTOMS NOS 08/02/2016 CORNELL NAIK MD Ot O23.41 UNSP INFCT OF URINARY TRACT IN 08/02/2016 CORNELL NAIK MD Ot R10.30 LOWER ABDOMINAL PAIN, UNSPECIFIED 08/02/2016 CORNELL NAIK MD Ot Z3A.14 14 WEEKS GESTATION OF 08/05/2016 CORNELL NAIK MD Ot O23.41 UNSP INFCT OF URINARY TRACT IN 08/05/2016 CORNELL NAIK MD Ot R10.30 LOWER ABDOMINAL PAIN, UNSPECIFIED 08/05/2016 GUMARO MD, CORNELL D Ot Z3A.14 14 WEEKS GESTATION OF 08/10/2016 CORNELL NAIK MD Ot O23.41 UNSP INFCT OF URINARY TRACT IN 08/10/2016 CORNELL NAIK MD Ot R10.30 LOWER ABDOMINAL PAIN, UNSPECIFIED 08/10/2016 CORNELL NAIK MD, Ot Z3A.14 14 WEEKS GESTATION OF 11/22/2016 FLIP ESPARZA DO Ot O36.8931 MATERNAL CARE FOR OTH PROBLEMS, 12/05/2016 MARTHA ROJAS MD Ot R00.2 PALPITATIONS 12/05/2016 MARTHA ROJAS MD Ot R06.02 SHORTNESS OF BREATH 12/05/2016 MARTHA ROJAS MD Ot R00.2 PALPITATIONS 12/05/2016 MARTHA ROJAS MD Ot R06.02 SHORTNESS OF BREATH 12/06/2016 FLIP ESPARZA DO Ot O36.8931 MATERNAL CARE FOR OTH PROBLEMS, 12/12/2016 MARTHA ROJAS MD Ot R00.2 PALPITATIONS 12/12/2016 MARTHA ROJAS MD Ot R06.02 SHORTNESS OF BREATH 12/13/2016 MARTHA ROJAS MD Ot R00.2 PALPITATIONS 12/13/2016 MARTHA ROJAS MD Ot R06.02 SHORTNESS OF BREATH 12/13/2016 MARTHA ROJAS MD Ot R00.2 PALPITATIONS 12/13/2016 MARTHA ROJAS MD Ot R06.02 SHORTNESS OF BREATH 12/13/2016 MARTHA ROJAS MD Ot R00.2 PALPITATIONS 12/13/2016 MARTHA ROJAS MD Ot R06.02 SHORTNESS OF BREATH 12/14/2016 FLIP ESPARZA DO Ot E83.42 HYPOMAGNESEMIA 12/14/2016 FLIP ESPARZA DO Ot I47.2 VENTRICULAR TACHYCARDIA 12/14/2016 FLIP ESPARZA DO Ot O99.283 ENDO, NUTRITIONAL AND METAB DISEASES COM 12/14/2016 FLIP ESPARZA DO Ot 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 , 12/14/2016 FLIP ESPARZA DO Ot Z3A.33 33 WEEKS GESTATION OF 12/14/2016 ESPARZA DO, FLPI C Ot E83.42 HYPOMAGNESEMIA 12/14/2016 ISAIAS SURESH FLIP C Ot I47.2 VENTRICULAR TACHYCARDIA 12/14/2016 ISAIAS SURESH FLIP C Ot O99.283 ENDO, NUTRITIONAL AND METAB DISEASES COM 12/14/2016 ISAIAS SURESH FLIP C Ot 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 , 12/14/2016 ISAIAS SURESH FLIP C Ot Z3A.33 33 WEEKS GESTATION OF 12/18/2016 ESPARZA FLIP C Ot E83.42 HYPOMAGNESEMIA 12/18/2016 ISAIAS SURESH FLIP C Ot F41.9 ANXIETY DISORDER, UNSPECIFIED 12/18/2016 ESPARZA FLIP C Ot I47.2 VENTRICULAR TACHYCARDIA 12/18/2016 ESPARZA FLIP C Ot O99.283 ENDO, NUTRITIONAL AND METAB DISEASES COM 12/18/2016 ISAIAS SURESH FLIP C Ot O99.343 OTH MENTAL DISORDERS COMPLICATING PREGNA 12/18/2016 ESPARZAJIN Neff DOA C Ot 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 , 12/18/2016 ESPARZAAishwarya SURESH FLIP C Ot R07.89 OTHER CHEST PAIN 12/18/2016 ESPARZAFLIP Neff DO C Ot Z23 ENCOUNTER FOR IMMUNIZATION 12/18/2016 ESPARZAFLIP Neff DO Ot Z3A.34 34 WEEKS GESTATION OF 12/20/2016 BOB AVILES, MARTHA Helm Ot R00.2 PALPITATIONS 12/20/2016 MARTHA ROJAS MD Ot R06.02 SHORTNESS OF BREATH 12/26/2016 MARTHA ROJAS MD Ot R00.2 PALPITATIONS 12/26/2016 MARTHA ROJAS MD Ot R06.02 SHORTNESS OF BREATH 12/26/2016 MARTHA ROJAS MD Ot R00.2 PALPITATIONS 12/26/2016 MARTHA ROJAS MD Ot R06.02 SHORTNESS OF BREATH 01/09/2017 FLIP ESPARZA DO Ot I47.2 VENTRICULAR TACHYCARDIA 01/09/2017 ESPARZAAishwarya SURESH FLIP C Ot O69.81X0 LABOR AND DEL COMP BY CORD AROUND NECK, 01/09/2017 FLIP ESPARZA DO C Ot 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 , 01/09/2017 FLIP ESPARZA DO Ot Z37.0 SINGLE LIVE 01/09/2017 ESPARZAFLIP Neff DO Ot Z3A.37 37 WEEKS GESTATION OF 02/05/2017 MARTHA ROJAS MD Ot I47.2 VENTRICULAR TACHYCARDIA 02/05/2017 MARTHA ROJAS MD, Ot R00.2 PALPITATIONS 02/05/2017 MARTHA ROJAS MD Ot R06.02 SHORTNESS OF BREATH Procedures Code Description Performed By Performed On 73.6 EPISIOTOMY 2011 48488 Audiogram (Screening) 10/14/2012 60348 Screening Test Of Visual Acuity, Quantitative, Bilateral 10/14/2012 63192 UA LONG DIP 03/05 74756 Screening Test Of Visual Acuity, Quantitative, Bilateral 03/06/2013 01405 URINE TEST (IN-HOUSE) 07/23/2013 77080 THERAPUTIC INJ SQ/IM 07/23/2013 J1050 DEPO PROVERA 79746 THERAPUTIC INJ SQ/IM 10/12/2013 J1050 DEPO PROVERA 04/2014 94393 CULTURE URINE 04/2014 27266 GC/CHLAM URINE (STATE) 10/12/2013 22897 TEST, URINE (IN-HOUSE) 10/12/2013 09846 UA W/ CULTURE IF INDICATED 10/12/2013 36480 GC/CHLAM PROBE (STATE) 12/16/2013 78084 THERAPUTIC INJ SQ/IM 12/28/2013 J1050 DEPO PROVERA 89724 TEST, URINE (IN-HOUSE) 12/28/2013 54499 [employer] 2013 81847 XRAY HIP RIGHT UNILATERAL MIN 2 VIEWS 12/27/2014 [id number] DELIVERY OF PRODUCTS OF CONCEPTION, EXTE 01/07/2017 Results Test Result Range Complete blood count (CBC) with automated white blood cell (WBC) differential - 08/02/16 10:06 Blood leukocytes automated count (number/volume) 12.7 10*3/ uL 4.3-11.0 Blood erythrocytes automated count (number/volume) 3.67 10*6 /uL 4.35-5.85 Venous blood hemoglobin measurement (mass/volume) 11.4 g/dL 11.5-16.0 Blood hematocrit (volume fraction) 33 % 35-52 Automated erythrocyte mean corpuscular volume 90 [foz_us] 80-99 Automated erythrocyte mean corpuscular hemoglobin (mass per erythrocyte) 31 pg 25-34 Automated erythrocyte mean corpuscular hemoglobin concentration measurement ( mass/volume) 35 g/dL 32-36 Automated erythrocyte distribution width ratio 13.4 % 10.0-14.5 Automated blood platelet count (count/volume) 285 10*3/uL 130-400 Automated blood platelet mean volume measurement 10.3 [foz_ us] 7.4-10.4 Automated blood neutrophils/100 leukocytes 83 % 42-75 Automated blood lymphocytes/100 leukocytes 13 % 12-44 Blood monocytes/100 leukocytes 4 % 0-12 Automated blood eosinophils/100 leukocytes 1 % 0-10 Automated blood basophils/100 leukocytes 0 % 0-10 Blood neutrophils automated count (number/volume) 10.6 10*3 1.8-7.8 Blood lymphocytes automated count (number/volume) 1.6 10*3 1.0-4.0 Blood monocytes automated count (number/volume) 0.5 10*3 0.0-1.0 Automated eosinophil count 0.1 10*3/uL 0.0-0.3 Automated blood basophil count (count/volume) 0.0 10*3/uL 0.0-0.1 Serum or plasma choriogonadotropin measurement (units/volume) - 08/02/16 10:06 Serum or plasma choriogonadotropin measurement (units/volume) 52793 m[iU]/mL <5 Complete urinalysis with reflex to culture - 08/02/16 10:13 Urine color determination YELLOW NRG Urine clarity determination VERY CLOUDY NRG Urine pH measurement by test strip 6 5- 9 Specific gravity of urine by test strip 1.015 1.016-1.022 Urine protein assay by test strip, semi-quantitative 2+ NEGATIVE Urine glucose detection by automated test strip NEGATIVE NEGATIVE Erythrocytes detection in urine sediment by light microscopy 5+ NEGATIVE Urine ketones detection by automated test strip 2+ NEGATIVE Urine nitrite detection by test strip NEGATIVE NEGATIVE Urine total bilirubin detection by test strip NEGATIVE NEGATIVE Urine urobilinogen measurement by automated test strip (mass/volume) NORMAL NORMAL Urine leukocyte esterase detection by dipstick 3+ NEGATIVE Automated urine sediment erythrocyte count by microscopy (number/high power field) [HPF] NRG Automated urine sediment leukocyte count by microscopy (number/high power field ) TNTC NRG Bacteria detection in urine sediment by light microscopy MODERATE NRG Squamous epithelial cells detection in urine sediment by light microscopy 0-2 NRG Crystals detection in urine sediment by light microscopy NONE NRG Casts detection in urine sediment by light microscopy NONE NRG Mucus detection in urine sediment by light microscopy NEGATIVE NRG Complete urinalysis with reflex to culture YES NRG Bacterial urine culture - 08/02/16 10:13 Bacterial urine culture [id number] NRG COLONY COUNT >100,000/ML NRG FTX;REPORTABLE SENSITIVITY REPORTED 08/04/16 12:10 NRG Bacterial susceptibility panel - 08/02/16 10:13 Gentamicin susceptibility test by minimum inhibitory concentration <= NRG Trimethoprim/sulfamethoxazole susceptibility test by minimum inhibitoryconcentration <= NRG Ampicillin susceptibility test by minimum inhibitory concentration >= NRG Tobramycin susceptibility test by minimum inhibitory concentration <= NRG Cefazolin susceptibility test by minimum inhibitory concentration <= NRG Ceftriaxone susceptibility test by minimum inhibitory concentration <= NRG Ampicillin/sulbactam susceptibility test by minimum inhibitory concentration 16 NRG Piperacillin/tazobactam susceptibility test by minimum inhibitory concentration <= NRG Ciprofloxacin susceptibility test by minimum inhibitory concentration <= NRG Meropenem susceptibility test by minimum inhibitory concentration <= NRG Nitrofurantoin susceptibility test by minimum inhibitory concentration <= NRG Aztreonam susceptibility test by minimum inhibitory concentration <= NRG Extended spectrum beta lactamase (ESBL) producing bacteria susceptibility test by minimum inhibitory concentration - NRG Complete blood count (CBC) with automated white blood cell (WBC) differential - 12/12/16 22:47 Blood leukocytes automated count (number/volume) 10.5 10*3/ uL 4.3-11.0 Blood erythrocytes automated count (number/volume) 3.42 10*6 /uL 4.35-5.85 Venous blood hemoglobin measurement (mass/volume) 10.6 g/dL 11.5-16.0 Blood hematocrit (volume fraction) 31 % 35-52 Automated erythrocyte mean corpuscular volume 91 [foz_us] 80-99 Automated erythrocyte mean corpuscular hemoglobin (mass per erythrocyte) 31 pg 25-34 Automated erythrocyte mean corpuscular hemoglobin concentration measurement ( mass/volume) 34 g/dL 32-36 Automated erythrocyte distribution width ratio 13.8 % 10.0-14.5 Automated blood platelet count (count/volume) 252 10*3/uL 130-400 Automated blood platelet mean volume measurement 10.4 [foz_ us] 7.4-10.4 Automated blood neutrophils/100 leukocytes 68 % 42-75 Automated blood lymphocytes/100 leukocytes 26 % 12-44 Blood monocytes/100 leukocytes 5 % 0-12 Automated blood eosinophils/100 leukocytes 1 % 0-10 Automated blood basophils/100 leukocytes 0 % 0-10 Blood neutrophils automated count (number/volume) 7.1 10*3 1.8-7.8 Blood lymphocytes automated count (number/volume) 2.7 10*3 1.0-4.0 Blood monocytes automated count (number/volume) 0.5 10*3 0.0-1.0 Automated eosinophil count 0.1 10*3/uL 0.0-0.3 Automated blood basophil count (count/volume) 0.0 10*3/uL 0.0-0.1 Comprehensive metabolic panel - 12/12/16 22:47 Serum or plasma sodium measurement (moles/volume) 136 mmol/ L 135-145 Serum or plasma potassium measurement (moles/volume) 3.9 mmol/L 3.6-5.0 Serum or plasma chloride measurement (moles/volume) 107 mmol /L 98-107 Carbon dioxide 19 mmol/L 21-32 Serum or plasma anion gap determination (moles/volume) 10 mmol/L 5-14 Serum or plasma urea nitrogen measurement (mass/volume) 5 mg /dL 7-18 Serum or plasma creatinine measurement (mass/volume) 0.58 mg /dL 0.60-1.30 Serum or plasma urea nitrogen/creatinine mass ratio 9 NRG Serum or plasma creatinine measurement with calculation of estimated glomerular filtration rate > NRG Serum or plasma glucose measurement (mass/volume) 88 mg/dL 70-105 Serum or plasma calcium measurement (mass/volume) 8.7 mg/dL 8.5-10.1 Serum or plasma total bilirubin measurement (mass/volume) 0.4 mg/dL 0.1-1.0 Serum or plasma alkaline phosphatase measurement (enzymatic activity/volume) 104 U/L 40-136 Serum or plasma aspartate aminotransferase measurement (enzymatic activity/ volume) 24 U/L 5-34 Serum or plasma alanine aminotransferase measurement (enzymatic activity/volume ) 8 U/L 0-55 Serum or plasma protein measurement (mass/volume) 6.2 g/dL 6.4-8.2 Serum or plasma albumin measurement (mass/volume) 3.5 g/dL 3.2-4.5 Magnesium - 12/12/16 22:47 Magnesium 1.8 mg/dL 1.8-2.4 Serum or plasma lithium measurement (moles/volume) - 12/12/16 22:47 BNP level 16.2 pg/mL <100.0 Blood type T Indirect antibody screen panel - 12/12/16 22:47 ABO+Rh group AP NRG Transfusion band number [id number] NR Blood group antibody screen NEGATIVE NR Complete blood count (CBC) with automated white blood cell (WBC) differential - 12/16/16 14:33 Blood leukocytes automated count (number/volume) 9.7 10*3/ uL 4.3-11.0 Blood erythrocytes automated count (number/volume) 3.87 10*6 /uL 4.35-5.85 Venous blood hemoglobin measurement (mass/volume) 11.9 g/dL 11.5-16.0 Blood hematocrit (volume fraction) 35 % 35-52 Automated erythrocyte mean corpuscular volume 91 [foz_us] 80-99 Automated erythrocyte mean corpuscular hemoglobin (mass per erythrocyte) 31 pg 25-34 Automated erythrocyte mean corpuscular hemoglobin concentration measurement ( mass/volume) 34 g/dL 32-36 Automated erythrocyte distribution width ratio 14.1 % 10.0-14.5 Automated blood platelet count (count/volume) 231 10*3/uL 130-400 Automated blood platelet mean volume measurement 10.6 [foz_ us] 7.4-10.4 Automated blood neutrophils/100 leukocytes 71 % 42-75 Automated blood lymphocytes/100 leukocytes 24 % 12-44 Blood monocytes/100 leukocytes 5 % 0-12 Automated blood eosinophils/100 leukocytes 1 % 0-10 Automated blood basophils/100 leukocytes 0 % 0-10 Blood neutrophils automated count (number/volume) 6.9 10*3 1.8-7.8 Blood lymphocytes automated count (number/volume) 2.3 10*3 1.0-4.0 Blood monocytes automated count (number/volume) 0.5 10*3 0.0-1.0 Automated eosinophil count 0.1 10*3/uL 0.0-0.3 Automated blood basophil count (count/volume) 0.0 10*3/uL 0.0-0.1 Fibrin D-dimer FEU measurement in platelet poor plasma (mass/volume) - 14:33 Fibrin D-dimer FEU measurement in platelet poor plasma (mass/volume) 0.72 ug/mL 0.00-0.49 Comprehensive metabolic panel - 12/16/16 14:33 Serum or plasma sodium measurement (moles/volume) 138 mmol/ L 135-145 Serum or plasma potassium measurement (moles/volume) 4.0 mmol/L 3.6-5.0 Serum or plasma chloride measurement (moles/volume) 109 mmol /L 98-107 Carbon dioxide 20 mmol/L 21-32 Serum or plasma anion gap determination (moles/volume) 9 mmol/L 5-14 Serum or plasma urea nitrogen measurement (mass/volume) 5 mg /dL 7-18 Serum or plasma creatinine measurement (mass/volume) 0.59 mg /dL 0.60-1.30 Serum or plasma urea nitrogen/creatinine mass ratio 8 NRG Serum or plasma creatinine measurement with calculation of estimated glomerular filtration rate > NRG Serum or plasma glucose measurement (mass/volume) 76 mg/dL 70-105 Serum or plasma calcium measurement (mass/volume) 8.9 mg/dL 8.5-10.1 Serum or plasma total bilirubin measurement (mass/volume) 0.5 mg/dL 0.1-1.0 Serum or plasma alkaline phosphatase measurement (enzymatic activity/volume) 110 U/L 40-136 Serum or plasma aspartate aminotransferase measurement (enzymatic activity/ volume) 33 U/L 5-34 Serum or plasma alanine aminotransferase measurement (enzymatic activity/volume ) 12 U/L 0-55 Serum or plasma protein measurement (mass/volume) 6.6 g/dL 6.4-8.2 Serum or plasma albumin measurement (mass/volume) 3.6 g/dL 3.2-4.5 Magnesium - 12/16/16 14:33 Magnesium 1.9 mg/dL 1.8-2.4 Serum or plasma troponin i.cardiac measurement (mass/volume) - 12/16/16 14:33 Serum or plasma troponin i.cardiac measurement (mass/volume) < ng/mL <0.30 Serum or plasma lithium measurement (moles/volume) - 12/16/16 14:33 BNP level 17.0 pg/mL <100.0 Whole blood basic metabolic panel - 12/18/16 06:03 Serum or plasma sodium measurement (moles/volume) 136 mmol/ L 135-145 Serum or plasma potassium measurement (moles/volume) 3.9 mmol/L 3.6-5.0 Serum or plasma chloride measurement (moles/volume) 108 mmol /L 98-107 Carbon dioxide 18 mmol/L 21-32 Serum or plasma anion gap determination (moles/volume) 10 mmol/L 5-14 Serum or plasma urea nitrogen measurement (mass/volume) 5 mg /dL 7-18 Serum or plasma creatinine measurement (mass/volume) 0.56 mg /dL 0.60-1.30 Serum or plasma urea nitrogen/creatinine mass ratio 9 NRG Serum or plasma creatinine measurement with calculation of estimated glomerular filtration rate > NRG Serum or plasma glucose measurement (mass/volume) 116 mg/dL 70-105 Serum or plasma calcium measurement (mass/volume) 8.2 mg/dL 8.5-10.1 Magnesium - 12/18/16 06:03 Magnesium 1.8 mg/dL 1.8-2.4 Complete blood count (CBC) with automated white blood cell (WBC) differential - 01/07/17 06:50 Blood leukocytes automated count (number/volume) 9.4 10*3/ uL 4.3-11.0 Blood erythrocytes automated count (number/volume) 3.72 10*6 /uL 4.35-5.85 Venous blood hemoglobin measurement (mass/volume) 11.5 g/dL 11.5-16.0 Blood hematocrit (volume fraction) 34 % 35-52 Automated erythrocyte mean corpuscular volume 91 [foz_us] 80-99 Automated erythrocyte mean corpuscular hemoglobin (mass per erythrocyte) 31 pg 25-34 Automated erythrocyte mean corpuscular hemoglobin concentration measurement ( mass/volume) 34 g/dL 32-36 Automated erythrocyte distribution width ratio 15.0 % 10.0-14.5 Automated blood platelet count (count/volume) 206 10*3/uL 130-400 Automated blood platelet mean volume measurement 10.7 [foz_ us] 7.4-10.4 Automated blood neutrophils/100 leukocytes 71 % 42-75 Automated blood lymphocytes/100 leukocytes 23 % 12-44 Blood monocytes/100 leukocytes 5 % 0-12 Automated blood eosinophils/100 leukocytes 1 % 0-10 Automated blood basophils/100 leukocytes 0 % 0-10 Blood neutrophils automated count (number/volume) 6.6 10*3 1.8-7.8 Blood lymphocytes automated count (number/volume) 2.2 10*3 1.0-4.0 Blood monocytes automated count (number/volume) 0.5 10*3 0.0-1.0 Automated eosinophil count 0.1 10*3/uL 0.0-0.3 Automated blood basophil count (count/volume) 0.0 10*3/uL 0.0-0.1 Blood type T Indirect antibody screen panel - 01/07/17 06:50 ABO+Rh group AP NRG Transfusion band number [id number] NRG Blood group antibody screen NEGATIVE NRG Complete urinalysis with reflex to culture - 01/07/17 07:30 Urine color determination YELLOW NRG Urine clarity determination CLEAR NRG Urine pH measurement by test strip 7 5- 9 Specific gravity of urine by test strip 1.010 1.016-1.022 Urine protein assay by test strip, semi-quantitative NEGATIVE NEGATIVE Urine glucose detection by automated test strip NEGATIVE NEGATIVE Erythrocytes detection in urine sediment by light microscopy NEGATIVE NEGATIVE Urine ketones detection by automated test strip NEGATIVE NEGATIVE Urine nitrite detection by test strip NEGATIVE NEGATIVE Urine total bilirubin detection by test strip NEGATIVE NEGATIVE Urine urobilinogen measurement by automated test strip (mass/volume) NORMAL NORMAL Urine leukocyte esterase detection by dipstick 1+ NEGATIVE Automated urine sediment erythrocyte count by microscopy (number/high power field) NONE NRG Automated urine sediment leukocyte count by microscopy (number/high power field ) RARE NRG Bacteria detection in urine sediment by light microscopy TRACE NRG Squamous epithelial cells detection in urine sediment by light microscopy 0-2 NRG Crystals detection in urine sediment by light microscopy NONE NRG Casts detection in urine sediment by light microscopy NONE NRG Mucus detection in urine sediment by light microscopy NEGATIVE NRG Complete urinalysis with reflex to culture NO NRG Bacterial urine culture - 01/07/17 07:30 URINE CULTURE RESULTS <10,000/ML NRG Complete blood count (CBC) with automated white blood cell (WBC) differential - 01/08/17 05:35 Blood leukocytes automated count (number/volume) 11.2 10*3/ uL 4.3-11.0 Blood erythrocytes automated count (number/volume) 3.62 10*6 /uL 4.35-5.85 Venous blood hemoglobin measurement (mass/volume) 11.2 g/dL 11.5-16.0 Blood hematocrit (volume fraction) 33 % 35-52 Automated erythrocyte mean corpuscular volume 92 [foz_us] 80-99 Automated erythrocyte mean corpuscular hemoglobin (mass per erythrocyte) 31 pg 25-34 Automated erythrocyte mean corpuscular hemoglobin concentration measurement ( mass/volume) 34 g/dL 32-36 Automated erythrocyte distribution width ratio 15.1 % 10.0-14.5 Automated blood platelet count (count/volume) 195 10*3/uL 130-400 Automated blood platelet mean volume measurement 10.5 [foz_ us] 7.4-10.4 Automated blood neutrophils/100 leukocytes 70 % 42-75 Automated blood lymphocytes/100 leukocytes 25 % 12-44 Blood monocytes/100 leukocytes 5 % 0-12 Automated blood eosinophils/100 leukocytes 1 % 0-10 Automated blood basophils/100 leukocytes 0 % 0-10 Blood neutrophils automated count (number/volume) 7.8 10*3 1.8-7.8 Blood lymphocytes automated count (number/volume) 2.8 10*3 1.0-4.0 Blood monocytes automated count (number/volume) 0.5 10*3 0.0-1.0 Automated eosinophil count 0.1 10*3/uL 0.0-0.3 Automated blood basophil count (count/volume) 0.0 10*3/uL 0.0-0.1 Encounters ACCT No. Visit Date/Time Discharge Status Pt. Type Provider Facility Loc./Unit Complaint [id number] 12/27/2014 10:41:00 12/27/2014 23: 59:59 CLS Outpatient VERÓNICA SANTILLAN APRN [id number] 09/19/2014 15:10:00 09/19/2014 23: 59:59 CLS Outpatient ZOHREH PATEL APRN [id number] 06/14/2014 14:42:00 06/14/2014 23: 59:59 CLS Outpatient JESÚS ARTEAGA DO [id number] 05/30/2014 13:37:00 05/30/2014 23: 59:59 CLS Outpatient NETTE LORENZANA APRN [id number] 12/28/2013 13:16:00 12/28/2013 23: 59:59 CLS Outpatient ZOHREH PATEL APRN [id number] 12/28/2013 13:16:00 12/28/2013 23: 59:59 CLS Outpatient ZOHREH PATEL APRN [id number] 12/16/2013 15:25:00 12/16/2013 23: 59:59 CLS Outpatient ZOHREH PATEL APRN [id number] 11/25/2013 15:40:00 11/25/2013 23: 59:59 CLS Outpatient JESÚS ARTEAGA DO Benjy [id number] 10/12/2013 09:26:00 10/12/2013 23: 59:59 CLS Outpatient ZOHREH PATEL APRN [id number] 07/23/2013 10:27:00 07/23/2013 23: 59:59 CLS Outpatient JESÚS ARTEAGA DO Benjy [id number] 01/01/2013 13:55:00 01/01/2013 23: 59:59 CLS Outpatient [id number] 12/10/2012 14:36:00 12/10/2012 23: 59:59 CLS Outpatient [id number] 11/27/2012 09:22:00 11/27/2012 23: 59:59 CLS Outpatient NELLY AVILES, YOSSI [id number] 10/14/2012 08:30:00 10/14/2012 23: 59:59 CLS Outpatient [id number] 10/12/2013 09:26:00 Document Registration [id number] 03/05/2013 09:50:00 Document Registration [id number] 03/05/2013 09:50:00 Document Registration [id number] 01/26/2013 13:15:00 Document Registration
--- OUTSIDE RECORDS SUMMARY | 2017-02-09 13:23 | XMS REPORT ---
Author Author TY DEE [facility] [place] eClinicalWorks Address Unknown Phone Unavailable Care Team Providers Care Jewelry Sorter Name Role Phone TY DEE CP Unavailable Allergies, Adverse Reactions, Alerts Substance Reaction Event Type Mucinex rash Drug Allergy Bleach uvulitis Non Drug Allergy Problems Problem Type Condition ICD-9 Code Onset Dates Condition Status Problem Screening examination for pulmonary tuberculosis V74.1 Active Problem Impetigo 684 Active Problem Unspecified adjustment reaction 309.9 Active Problem Hematuria, unspecified 599.70 Active Problem Acute sinusitis, unspecified 461.9 Active Problem Screening examination for venereal disease V74.5 Active Problem Unspecified contraceptive management V25.9 Active Problem MENINGOCOCCAL DX V03.89 Active Problem Other general medical examination for administrative purposes V70.3 Active Problem Other specified symptom associated with female genital organs 625.8 Active Assessment Pain in joint, pelvic region and thigh 719.45 Active Assessment Attention deficit disorder of childhood without mention of hyperactivity 314.00 Active Assessment Acute sinusitis, unspecified 461.9 Active Problem Scabies 133.0 Active Problem Pain in joint, pelvic region and thigh 719.45 Active Assessment Encounter for long-term (current) use of other medications V58.69 Active Problem Encounter for long-term (current) use of other medications V58.69 Active Problem Unspecified subjective visual disturbance 368.10 Active Problem Attention deficit disorder of childhood without mention of hyperactivity 314.00 Active Medications Medication Code System Code Instructions Start Date End Date Status Dosage ProAir HFA [facility] [place] [address]-17 90 mcg/actuation Oct 14, 2012 2 puffs by Inhalation route every 4 hours for 30 day(s)PRNand as directed 15 minutes before exercise Diclofenac Sodium [facility] [place] [address]-66 Orally daily, unsure of dose 1 tablet Flonase [facility] [place] [address]-17 50 MCG/ACT Nasally Once a day Jun 01, 2015 1 spray in each nostril Albuterol Sulfate [facility] [place] [address]-00 90 mcg/actuation Nov 25, 2013 2 puffs by Inhalation route every 4-6 hours as needed PRN cough or wheezing Depo-Estradiol [facility] [place] [address]-71 5 mg/mL December 13, 2014 1 mL by Intramuscular route every 4 weeks Procedures Procedure Coding System Code Date Office Visit, Est Pt., Level 4 CPT-4 06968 Jun 01, 2015 No Charge CPT-4 39537 Jun 01, 2015 Vital Signs Date/Time: Jun 01, 2015 Temperature 97.7 F Weight 153 lbs Height 64 in BMI 26.26 Index Blood Pressure Diastolic 82 mmHg Blood Pressure Systolic 122 mmHg Cardiac Monitoring Heart Rate 78 bpm Results No Known Results Summary Purpose eClinicalWorks Submission
--- OUTSIDE RECORDS SUMMARY | 2017-02-09 13:23 | XMS REPORT ---
Author Author TY DEE [facility] eClinicalWorks Address Unknown Phone Unavailable Care Team Providers Care Applications Trainer Name Role Phone TY DEE CP Unavailable Allergies No Known Allergies Problems Problem Type Condition ICD-9 Code Onset [...] associated with female genital organs 625.8 Active Problem Scabies 133.0 Active Problem Pain in joint, pelvic region and thigh 719.45 Active Problem Encounter for long-term (current) use of other medications V58.69 Active Problem Unspecified subjective visual disturbance 368.10 Active Problem Attention deficit disorder of childhood without mention of hyperactivity 314.00 Active Medications Medication Code System Code Instructions Start Date End Date Status Dosage Vyvanse [facility] [address]-89 40 MG Orally Once a day Jul 23, 2013 1 capsule by Oral route 1 time per day Results No Known Results Summary Purpose eClinicalWorks Submission
== END 2017-01-09 12:40 | disposition home or self-care (01) | DRG 774 ==
LOC: LDRP 06:12
PROVIDERS: ADMIT Obstetrics & Gynecology; ATTEND Obstetrics & Gynecology
PROC: 10E0XZZ Delivery of Products of Conception, External Approach (ICD-10-PCS; principal; 2017-01-07)
DX: O99.413 Diseases of the circulatory system complicating pregnancy, third trimester (principal); I47.2 Ventricular tachycardia; O69.81X0 Labor and delivery complicated by cord around neck, without compression, not applicable or unspecified; Z37.0 Single live birth; Z3A.37 37 weeks gestation of pregnancy
CPT/HCPCS: 36415; 81000; 85025; 86850; 86900; 86901; 87088

== ENCOUNTER 2017-02-04 10:05 | Outpatient (RCR) | payer MEDICAID ==
[~2017-02-04 10:05] MED LIST changes: +IBUP-1773 PO; -METO-270 PO; -METO-272 PO; +METO-370 PO; +METO-387 PO
== END 2017-05-05 | disposition home or self-care (01) ==
LOC: CARD 10:05
PROVIDERS: ATTEND Internal Medicine Cardiovascular Disease
DX: I47.2 Ventricular tachycardia (principal); R06.02 Shortness of breath; R00.2 Palpitations
CPT/HCPCS: 93225; 93226

== ENCOUNTER → 2017-02-19 | Outpatient (CLI) | payer MEDICAID ==
[~2017-02-19] MED LIST changes: +METO-270 PO; +METO-272 PO; -METO-370 PO; -METO-387 PO
== END ==
LOC: CARD 10:31
PROVIDERS: ATTEND Internal Medicine Cardiovascular Disease
DX: R00.2 Palpitations (principal); I47.2 Ventricular tachycardia; R06.02 Shortness of breath

== ENCOUNTER → 2017-03-31 | Outpatient (CLI) | payer MEDICAID | LOC: CARD 11:08 | PROVIDERS: ATTEND Internal Medicine Cardiovascular Disease | DX: R00.2 Palpitations (principal); I47.2 Ventricular tachycardia; R06.02 Shortness of breath; N83.209 Unspecified ovarian cyst, unspecified side | CPT/HCPCS: 93017 ==

== ENCOUNTER 2017-12-10 13:21 | Emergency (ER) | payer MEDICAID ==
[~2017-12-10] VITALS: Ht 154.9 cm; Wt 68.0 kg
[~2017-12-10 13:21] MED LIST changes: -METO-270 PO; -METO-272 PO; +METO-370 PO; +METO-387 PO
--- OUTSIDE RECORDS SUMMARY | 2017-12-10 13:27 | XMS REPORT | Clinical Summary ---
Author Author [facility] Organization [facility] Address Unknown Phone Unavailable Care Team Providers Care Customer Account Coordinator Name Role Phone No Pcp, Na PCP Unavailable Source Comments Some departments are not documenting in the electronic medical record. If you do not see the information that you expected, contact Release of Information in the Health Information Management department at [phone] for further assistance in locating additional records.[facility] Allergies Not on File Current Medications Not on file Active Problems Not on file Social History Tobacco Use Types Packs/Day Years Used Date Never Assessed Sex Assigned at Date Recorded Not on file Last Filed Vital Signs Not on file Plan of Treatment Health Maintenance Due Date Last Done Comments PHYSICAL (COMPREHENSIVE) 2002 EXAM HPV VACCINES (1 of 3 - 2006 Female 3 Dose Series) PERTUSSIS VACCINE 2006 TETANUS VACCINE 2012 CERVICAL CANCER SCREENING 2016 INFLUENZA VACCINE 05/06/2018 Results Not on filefrom Last 3 Months
--- OUTSIDE RECORDS SUMMARY | 2017-12-10 13:31 | XMS REPORT | Continuity of Care Document ---
Author Author Formerly [facility] Address Unknown Phone Unavailable Allergies Active Description Code Type Severity Reaction Onset Reported/Identified Relationship to Patient Clinical Status Yes Mucinex Drug Allergy 11/16/2010 Yes Mucinex Drug Allergy N/A N/A 11/16/2010 Yes guaifenesin [id number] Drug Allergy Mild N/A 12/30/2011 Medications There is no data. Problems Date Dx Coded Attending Type Code Diagnosis Diagnosed By 05/19/2008 466.0 Bronchitis, Acute 05/19/2008 477.9 HAY FEVER 05/19/2008 NELLY AVILES, YOSSI 466.0 Bronchitis, Acute 05/19/2008 NELLY AVILES, YOSSI 477.9 HAY FEVER 05/19/2008 466.0 Bronchitis, Acute 05/19/2008 477.9 HAY FEVER 05/19/2008 466.0 Bronchitis, Acute 05/19/2008 477.9 HAY FEVER 05/19/2008 466.0 Bronchitis, Acute 05/19/2008 477.9 HAY FEVER 05/19/2008 466.0 Bronchitis, Acute 05/19/2008 477.9 HAY FEVER 05/19/2008 466.0 Bronchitis, Acute 05/19/2008 477.9 HAY FEVER 05/19/2008 JESÚS ARTEAGA DO 466.0 Bronchitis, Acute 05/19/2008 JESÚS ARTEAGA DO 477.9 HAY FEVER 05/19/2008 ZOHREH PATEL APRN A 466.0 Bronchitis, Acute 05/19/2008 JORGE GYPSY RUIZIDI A 477.9 HAY FEVER 05/19/2008 466.0 Bronchitis, Acute 05/19/2008 477.9 HAY FEVER 05/19/2008 JESÚS ARTEAGA DO 466.0 Bronchitis, Acute 05/19/2008 JESÚS ARTEAGA DO 477.9 HAY FEVER 05/19/2008 JORGEGYPSY Carvalho APRNIDI A 466.0 Bronchitis, Acute 05/19/2008 JORGE MANAGER TECHNICAL SALES, ZOHREH A 477.9 HAY FEVER 05/19/2008 JORGE MANAGER TECHNICAL SALES, ZOHREH A 466.0 Bronchitis, Acute 05/19/2008 JORGE MANAGER TECHNICAL SALES, ZOHREH A 477.9 HAY FEVER 05/19/2008 JORGE MANAGER TECHNICAL SALES, ZOHREH A 466.0 Bronchitis, Acute 05/19/2008 JORGE MANAGER TECHNICAL SALES, ZOHREH A 477.9 HAY FEVER 05/19/2008 DEBI LORENZANA APRNIA R 466.0 Bronchitis, Acute 05/19/2008 KALEY LORENZANA APRNRICIA R 477.9 HAY FEVER 05/19/2008 JESÚS ARTEAGA DO K 466.0 Bronchitis, Acute 05/19/2008 JESÚS ARTEAGA DO K 477.9 HAY FEVER 05/19/2008 JORGE MANAGER TECHNICAL SALES, ZOHREH A 466.0 Bronchitis, Acute 05/19/2008 JORGE MANAGER TECHNICAL SALES, ZOHREH A 477.9 HAY FEVER 05/19/2008 JACQUE RUIZ VERÓNICA R 466.0 Bronchitis, Acute 05/19/2008 JACQUE RUIZ VERÓNICA R 477.9 HAY FEVER 06/02/2008 786.2 Cough 06/02/2008 YOSSI VILLEGAS MD 786.2 Cough 06/02/2008 786.2 Cough 06/02/2008 786.2 Cough 06/02/2008 786.2 Cough 06/02/2008 786.2 Cough 06/02/2008 786.2 Cough 06/02/2008 JESÚS ARTEAGA DO K 786.2 Cough 06/02/2008 JORGE MANAGER TECHNICAL SALES, ZOHREH A 786.2 Cough 06/02/2008 786.2 Cough 06/02/2008 JESÚS ARTEAGA DO 786.2 Cough 06/02/2008 JORGE MANAGER TECHNICAL SALES, ZOHREH A 786.2 Cough 06/02/2008 JORGE MANAGER TECHNICAL SALES, ZOHREH A 786.2 Cough 06/02/2008 JORGE MANAGER TECHNICAL SALES, ZOHREH A 786.2 Cough 06/02/2008 NETTE LORENZANA APRN R 786.2 Cough 06/02/2008 JESÚS ARTEAGA DO K 786.2 Cough 06/02/2008 JORGE MANAGER TECHNICAL SALES, ZOHREH A 786.2 Cough 06/02/2008 JACQUE RUIZ VERÓNICA R 786.2 Cough 07/02/2008 840.9 Sprain/strain Shoulder/arm 07/02/2008 YOSSI VILLEGAS MD 840.9 Sprain/strain Shoulder/arm 07/02/2008 840.9 Sprain/strain Shoulder/arm 07/02/2008 840.9 Sprain/strain Shoulder/arm 07/02/2008 840.9 Sprain/strain Shoulder/arm 07/02/2008 840.9 Sprain/strain Shoulder/arm 07/02/2008 840.9 Sprain/strain Shoulder/arm 07/02/2008 JESÚS ARTEAGA DO 840.9 Sprain/strain Shoulder/arm 07/02/2008 JORGE RUIZ ZOHREH A 840.9 Sprain/strain Shoulder/arm 07/02/2008 840.9 Sprain/strain Shoulder/arm 07/02/2008 JESÚS ARTEAGA DO 840.9 Sprain/strain Shoulder/arm 07/02/2008 JORGE RUIZ, ZOHREH A 840.9 Sprain/strain Shoulder/arm 07/02/2008 JORGEMaia RUIZ ZOHREH A 840.9 Sprain/strain Shoulder/arm 07/02/2008 JORGE APRN, ZOHREH A 840.9 Sprain/strain Shoulder/arm 07/02/2008 NETTE LORENZANA APRN R 840.9 Sprain/strain Shoulder/arm 07/02/2008 JESÚS ARTEAGA DO 840.9 Sprain/strain Shoulder/arm 07/02/2008 JORGE RUIZ, ZOHREH A 840.9 Sprain/strain Shoulder/arm 07/02/2008 VERÓNICA SANTILLAN APRN R 840.9 Sprain/strain Shoulder/arm 11/07/2008 296.90 Unspecified Episodic Mood Disorder 11/07/2008 YOSSI VILLEGAS MD 296.90 Unspecified Episodic Mood Disorder 11/07/2008 296.90 Unspecified Episodic Mood Disorder 11/07/2008 296.90 Unspecified Episodic Mood Disorder 11/07/2008 296.90 Unspecified Episodic Mood Disorder 11/07/2008 296.90 Unspecified Episodic Mood Disorder 11/07/2008 296.90 Unspecified Episodic Mood Disorder 11/07/2008 JESÚS ARTEAGA DO 296.90 Unspecified Episodic Mood Disorder 11/07/2008 JORGE RUIZ ZOHREH A 296.90 Unspecified Episodic Mood Disorder 11/07/2008 296.90 Unspecified Episodic Mood Disorder 11/07/2008 ARTEAGA DO JESÚS K 296.90 Unspecified Episodic Mood Disorder 11/07/2008 JORGE MANAGER TECHNICAL SALES, ZOHREH A 296.90 Unspecified Episodic Mood Disorder 11/07/2008 JORGE MANAGER TECHNICAL SALES, ZOHREH A 296.90 Unspecified Episodic Mood Disorder 11/07/2008 JORGE MANAGER TECHNICAL SALES, ZOHREH A 296.90 Unspecified Episodic Mood Disorder 11/07/2008 NETTE LORENZANA APRN R 296.90 Unspecified Episodic Mood Disorder 11/07/2008 ARTEAGA DO JESÚS K 296.90 Unspecified Episodic Mood Disorder 11/07/2008 JORGE MANAGER TECHNICAL SALES, ZOHREH A 296.90 Unspecified Episodic Mood Disorder [...] K 312.9 Unspecified Disturbance Of Conduct 12/21/2008 CHANDLER DOJUSTUSA K 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 12/21/2008 JORGE MANAGER TECHNICAL SALES, ZOHREH A 312.9 Unspecified Disturbance Of Conduct 12/21/2008 JORGE MANAGER TECHNICAL SALES, ZOHREH A 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 12/21/2008 312.9 Unspecified Disturbance Of Conduct 12/21/2008 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 12/21/2008 ARTEAGA DO, JESÚS K 312.9 Unspecified Disturbance Of Conduct 12/21/2008 ARTEAGA DO, JESÚS K 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 12/21/2008 JORGE MANAGER TECHNICAL SALES, ZOHREH A 312.9 Unspecified Disturbance Of Conduct 12/21/2008 JORGE MANAGER TECHNICAL SALES, ZOHREH A 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 12/21/2008 JORGE MANAGER TECHNICAL SALES, ZOHREH A 312.9 Unspecified Disturbance Of Conduct 12/21/2008 JORGE MANAGER TECHNICAL SALES, ZOHREH A 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 12/21/2008 JORGE MANAGER TECHNICAL SALES, ZOHREH A 312.9 Unspecified Disturbance Of Conduct 12/21/2008 JORGE MANAGER TECHNICAL SALES, ZOHREH A 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 12/21/2008 KALEY LORENZANA APRNRICIA R 312.9 Unspecified Disturbance Of Conduct 12/21/2008 KALEY LORENZANA APRNRICIA R 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 12/21/2008 ARTEAGA DO JESÚS K 312.9 Unspecified Disturbance Of Conduct 12/21/2008 ARTEAGA DO, JESÚS K 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 12/21/2008 JORGE MANAGER TECHNICAL SALES, ZOHREH A 312.9 Unspecified Disturbance Of Conduct 12/21/2008 JORGE MANAGER TECHNICAL SALES, ZOHREH A 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 12/21/2008 JACQUE MANAGER TECHNICAL SALES, VERÓNICA R 312.9 Unspecified Disturbance Of Conduct 12/21/2008 JACQUE VEEN, VERÓNICA R 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 12/28/2008 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 12/28/2008 NELLY AVILES, YOSSI 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 12/28/2008 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 12/28/2008 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 12/28/2008 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 12/28/2008 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 12/28/2008 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 12/28/2008 ARTEAGA DO JESÚS K 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 12/28/2008 JORGE MANAGER TECHNICAL SALES, ZOHREH A 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 12/28/2008 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 12/28/2008 JESÚS ARTEAGA DO K 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 12/28/2008 JORGE MANAGER TECHNICAL SALES, ZOHERH A 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 12/28/2008 JORGE MANAGER TECHNICAL SALES, ZOHREH A 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 12/28/2008 JORGE MANAGER TECHNICAL SALES, ZOHREH A 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 12/28/2008 NETTE LORENZANA APRN R 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 12/28/2008 JUSTUS ARTEAGA DOA K 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 12/28/2008 JORGE MANAGER TECHNICAL SALES, ZOHREH A 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 12/28/2008 JACQUE RUIZ, VERÓNICA R 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 01/05/2009 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, Predominantly Inattentive Type 01/05/2009 YOSSI VILLEGAS MD 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, Predominantly Inattentive Type 01/05/2009 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, Predominantly Inattentive Type 01/05/2009 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, Predominantly Inattentive Type 01/05/2009 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, Predominantly Inattentive Type 01/05/2009 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, Predominantly Inattentive Type 01/05/2009 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, Predominantly Inattentive Type 01/05/2009 JESÚS ARTEAGA DO K 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, Predominantly Inattentive Type 01/05/2009 JORGE MANAGER TECHNICAL SALES, ZOHREH A 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, Predominantly Inattentive Type 01/05/2009 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, Predominantly Inattentive Type 01/05/2009 JESÚS ARTEAGA DO K 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, Predominantly Inattentive Type 01/05/2009 JORGE MANAGER TECHNICAL SALES, ZOHREH A 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, Predominantly Inattentive Type 01/05/2009 JORGE MANAGER TECHNICAL SALES, ZOHREH A 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, Predominantly Inattentive Type 01/05/2009 JORGE MANAGER TECHNICAL SALES, ZOHREH A 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, Predominantly Inattentive Type 01/05/2009 NETTE LORENZANA APRN R 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, Predominantly Inattentive Type 01/05/2009 JESÚS ARTEAGA DO K 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, Predominantly Inattentive Type 01/05/2009 JORGE MANAGER TECHNICAL SALES, ZOHREH A 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, Predominantly Inattentive Type 01/05/2009 ARVIND SANTILLAN APRNINA R 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, Predominantly Inattentive Type 02/06/2009 [...] Disturbance Of Childhood Or Adolescence 02/06/2009 JORGE MANAGER TECHNICAL SALES, ZOHREH A 313.9 Unspecified Emotional Disturbance Of Childhood Or Adolescence 02/06/2009 313.9 Unspecified Emotional Disturbance Of Childhood Or Adolescence 02/06/2009 JESÚS ARTEAGA DO K 313.9 Unspecified Emotional Disturbance Of Childhood Or Adolescence 02/06/2009 JORGE MANAGER TECHNICAL SALES, ZOHREH A 313.9 Unspecified Emotional Disturbance Of Childhood Or Adolescence 02/06/2009 JORGE MANAGER TECHNICAL SALES, ZOHREH A 313.9 Unspecified Emotional Disturbance Of Childhood Or Adolescence 02/06/2009 JORGE MANAGER TECHNICAL SALES, ZOHREH A 313.9 Unspecified Emotional Disturbance Of Childhood Or Adolescence 02/06/2009 NETTE LORENZANA APRN R 313.9 Unspecified Emotional Disturbance Of Childhood Or Adolescence 02/06/2009 JESÚS ARTEAGA DO K 313.9 Unspecified Emotional Disturbance Of Childhood Or Adolescence 02/06/2009 JORGE MANAGER TECHNICAL SALES, ZOHREH A 313.9 Unspecified Emotional Disturbance Of Childhood Or Adolescence 02/06/2009 ARVIND SANTILLAN APRNINA R 313.9 Unspecified Emotional Disturbance Of Childhood [...] Visit For: Well Child Visit 02/15/2009 JORGE MANAGER TECHNICAL SALES, ZOHREH A 493.90 ASTHMA EXERCISE-INDUCED 02/15/2009 JORGE MANAGER TECHNICAL SALES, ZOHREH A V20.2 Visit For: Well Child Visit 02/15/2009 493.90 ASTHMA EXERCISE-INDUCED 02/15/2009 V20.2 Visit For: Well Child Visit 02/15/2009 ARTEAGA DO, JESÚS K 493.90 ASTHMA EXERCISE-INDUCED 02/15/2009 ARTEAGA DO, JESÚS K V20.2 Visit For: Well Child Visit 02/15/2009 JORGE APRN, ZOHREH A 493.90 ASTHMA EXERCISE-INDUCED 02/15/2009 JORGE APRN, ZOHREH A V20.2 Visit For: Well Child Visit 02/15/2009 JORGE APRN, ZOHREH A 493.90 ASTHMA EXERCISE-INDUCED 02/15/2009 JORGE APRN, ZOHREH A V20.2 Visit For: Well Child Visit 02/15/2009 JORGE APRN, ZOHREH A 493.90 ASTHMA EXERCISE-INDUCED 02/15/2009 JORGE APRN, ZOHREH A V20.2 Visit For: Well Child Visit 02/15/2009 DEBI LORENZANA APRNIA R 493.90 ASTHMA EXERCISE-INDUCED 02/15/2009 KALEY LORENZANA APRNRICIA R V20.2 Visit For: Well Child Visit 02/15/2009 ARTEAGA DO JESÚS K 493.90 ASTHMA EXERCISE-INDUCED 02/15/2009 ARTEAGA DO, JESÚS K V20.2 Visit For: Well Child Visit 02/15/2009 JORGE APRN, ZOHREH A 493.90 ASTHMA EXERCISE-INDUCED 02/15/2009 JORGE APRN, ZOHREH A V20.2 Visit For: Well Child Visit 02/15/2009 VERÓNICA SANTILLAN APRN R 493.90 ASTHMA EXERCISE-INDUCED 02/15/2009 VERÓNICA SANTILLAN APRN V20.2 Visit For: Well Child Visit 04/21/2009 [...] Cellulitis Of The Shoulder Left 04/21/2009 JORGE MANAGER TECHNICAL SALES, ZOHREH A 682.3 Cellulitis Of The Shoulder Left 04/21/2009 682.3 Cellulitis Of The Shoulder Left 04/21/2009 ARTEAGA DO, JESÚS K 682.3 Cellulitis Of The Shoulder Left 04/21/2009 JORGE MANAGER TECHNICAL SALES, ZOHREH A 682.3 Cellulitis Of The Shoulder Left 04/21/2009 JORGE MANAGER TECHNICAL SALES, ZOHREH A 682.3 Cellulitis Of The Shoulder Left 04/21/2009 JORGE MANAGER TECHNICAL SALES, ZOHREH A 682.3 Cellulitis Of The Shoulder Left 04/21/2009 NETTE LORENZANA APRN 682.3 Cellulitis Of The Shoulder Left 04/21/2009 ARTEAGA DO, JESÚS K 682.3 Cellulitis Of The Shoulder Left 04/21/2009 JORGE MANAGER TECHNICAL SALES, ZOHREH A 682.3 Cellulitis Of The Shoulder Left 04/21/2009 VERÓNICA SANTILLAN APRN 682.3 Cellulitis Of The Shoulder Left 06/01/2009 [...] K V58.69 Medication High Risk 06/01/2009 JORGE MANAGER TECHNICAL SALES, ZOHREH A 530.10 Esophagitis Unspecified 06/01/2009 JORGE MANAGER TECHNICAL SALES, ZOHREH A V58.69 Medication High Risk 06/01/2009 530.10 Esophagitis Unspecified 06/01/2009 V58.69 Medication High Risk 06/01/2009 ARTEAGA DO, JESÚS K 530.10 Esophagitis Unspecified 06/01/2009 ARTEAGA DO, JESÚS K V58.69 Medication High Risk 06/01/2009 JORGE MANAGER TECHNICAL SALES, ZOHREH A 530.10 Esophagitis Unspecified 06/01/2009 JORGE MANAGER TECHNICAL SALES, ZOHREH A V58.69 Medication High Risk 06/01/2009 JORGE MANAGER TECHNICAL SALES, ZOHREH A 530.10 Esophagitis Unspecified 06/01/2009 JORGE MANAGER TECHNICAL SALES, ZOHREH A V58.69 Medication High Risk 06/01/2009 JORGE MANAGER TECHNICAL SALES, ZOHREH A 530.10 Esophagitis Unspecified 06/01/2009 JORGE MANAGER TECHNICAL SALES, ZOHREH A V58.69 Medication High Risk 06/01/2009 DEBI LORENZANA APRNIA R 530.10 Esophagitis Unspecified 06/01/2009 KALEY LORENZANA APRNRICIA R V58.69 Medication High Risk 06/01/2009 ARTEAGA DO JESÚS K 530.10 Esophagitis Unspecified 06/01/2009 ARTEAGA DO, JESÚS K V58.69 Medication High Risk 06/01/2009 JORGE MANAGER TECHNICAL SALES, ZOHREH A 530.10 Esophagitis Unspecified 06/01/2009 JORGE MANAGER TECHNICAL SALES, ZOHREH A V58.69 Medication High Risk 06/01/2009 JACQUE RUIZ VERÓNICA R 530.10 Esophagitis Unspecified 06/01/2009 JACQUE RUIZ VERÓNICA R V58.69 Medication High Risk 09/18/2010 465.9 Upper Respiratory Infection 09/18/2010 NELLY AVILES, YOSSI 465.9 Upper Respiratory Infection 09/18/2010 465.9 Upper Respiratory Infection 09/18/2010 465.9 Upper Respiratory Infection 09/18/2010 465.9 Upper Respiratory Infection 09/18/2010 465.9 Upper Respiratory Infection 09/18/2010 465.9 Upper Respiratory Infection 09/18/2010 JESÚS ARTEAGA DO 465.9 Upper Respiratory Infection 09/18/2010 JORGE MANAGER TECHNICAL SALES, ZOHREH A 465.9 Upper Respiratory Infection 09/18/2010 465.9 Upper Respiratory Infection 09/18/2010 JESÚS ARTEAGA DO K 465.9 Upper Respiratory Infection 09/18/2010 JORGE MANAGER TECHNICAL SALES, ZOHREH A 465.9 Upper Respiratory Infection 09/18/2010 JORGE MANAGER TECHNICAL SALES, ZOHREH A 465.9 Upper Respiratory Infection 09/18/2010 JORGE MANAGER TECHNICAL SALES, ZOHREH A 465.9 Upper Respiratory Infection 09/18/2010 NETTE LORENZANA APRN 465.9 Upper Respiratory Infection 09/18/2010 JESÚS ARTEAGA DO K 465.9 Upper Respiratory Infection 09/18/2010 JORGE MANAGER TECHNICAL SALES, ZOHREH A 465.9 Upper Respiratory Infection 09/18/2010 ARVIND SANTILLAN APRNINA R 465.9 Upper Respiratory Infection 12/27/2010 309.3 Ad Adj D/o Dis Con 12/27/2010 NELLY AVILES, YOSSI 309.3 Ad Adj D/o Dis Con 12/27/2010 309.3 Ad Adj D/o Dis Con 12/27/2010 309.3 Ad Adj D/o Dis Con 12/27/2010 309.3 Ad Adj D/o Dis Con 12/27/2010 309.3 Ad Adj D/o Dis Con 12/27/2010 309.3 Ad Adj D/o Dis Con 12/27/2010 JESÚS ARTEAGA DO 309.3 Ad Adj D/o Dis Con 12/27/2010 JORGE RUIZ ZOHREH A 309.3 Ad Adj D/o Dis Con 12/27/2010 309.3 Ad Adj D/o Dis Con 12/27/2010 JESÚS ARTEAGA DO 309.3 Ad Adj D/o Dis Con 12/27/2010 JORGE RUIZ ZOHREH A 309.3 Ad Adj D/o Dis Con 12/27/2010 JORGE RUIZ ZOHREH A 309.3 Ad Adj D/o Dis Con 12/27/2010 JORGE MANAGER TECHNICAL SALES, ZOHREH A 309.3 Ad Adj D/o Dis Con 12/27/2010 SALOMÓN MANAGER TECHNICAL SALESNETTE Carvalho R 309.3 Ad Adj D/o Dis Con 12/27/2010 JESÚS ARTEAGA DO K 309.3 Ad Adj D/o Dis Con 12/27/2010 JORGE MANAGER TECHNICAL SALES, ZOHREH A 309.3 Ad Adj D/o Dis Con 12/27/2010 JACQUE MANAGER TECHNICAL SALES, VERÓNICA R 309.3 Ad Adj D/o Dis Con 01/17/2011 V05.8 GARDASIL 01/17/2011 YOSSI VILLEGAS MD V05.8 Gardasil 01/17/2011 V05.8 Gardasil 01/17/2011 V05.8 Gardasil 01/17/2011 V05.8 Gardasil 01/17/2011 V05.8 Gardasil 01/17/2011 V05.8 Gardasil 01/17/2011 JESÚS ARTEAGA DO V05.8 Gardasil 01/17/2011 JORGE MANAGER TECHNICAL SALES, ZOHREH A V05.8 Gardasil 01/17/2011 V05.8 Gardasil 01/17/2011 JESÚS ARTEAGA DO V05.8 Gardasil 01/17/2011 JORGE MANAGER TECHNICAL SALES, ZOHREH A V05.8 Gardasil 01/17/2011 JORGE MANAGER TECHNICAL SALES, ZOHREH A V05.8 Gardasil 01/17/2011 JORGE MANAGER TECHNICAL SALES, ZOHREH A V05.8 Gardasil 01/17/2011 SALOMÓN MANAGER TECHNICAL SALESNETTE Carvalho V05.8 Gardasil 01/17/2011 ARTEAGA JESÚS SURESH V05.8 Gardasil 01/17/2011 JORGE MANAGER TECHNICAL SALES, ZOHREH A V05.8 Gardasil 01/17/2011 JACQUE MANAGER TECHNICAL SALES, VERÓNICA R V05.8 Gardasil 01/31/2011 309.3 Ad [...] 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 01/31/2011 ARTEAGA DO, JESÚS K 309.3 Ad Adj D/o Dis Con 01/31/2011 ARTEAGA DO, JESÚS K 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 01/31/2011 JORGE RUIZ ZOHREH A 309.3 Ad Adj D/o Dis Con 01/31/2011 JORGE RUIZ ZOHREH A 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 01/31/2011 309.3 Ad Adj D/o Dis Con 01/31/2011 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 01/31/2011 ARTEAGA DO, JESÚS K 309.3 Ad Adj D/o Dis Con 01/31/2011 ARTEAGA DO, JESÚS K 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 01/31/2011 JORGE VEEN, ZOHREH A 309.3 Ad Adj D/o Dis Con 01/31/2011 JORGE RUIZ, ZOHREH A 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 01/31/2011 JORGE MANAGER TECHNICAL SALES, ZOHREH A 309.3 Ad Adj D/o Dis Con 01/31/2011 JORGE MANAGER TECHNICAL SALES, ZOHREH A 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 01/31/2011 JORGE VEEN, ZOHREH A 309.3 Ad Adj D/o Dis Con 01/31/2011 JORGE VEEN, ZOHREH A 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 01/31/2011 NETTE LORENZANA APRN R 309.3 Ad Adj D/o Dis Con 01/31/2011 NETTE LORENZANA APRN R 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 01/31/2011 JESÚS ARTEAGA DO K 309.3 Ad Adj D/o Dis Con 01/31/2011 CHANDLER SURESHJUSTUSA K 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 01/31/2011 JORGEZOHREH Carvalho APRN A 309.3 Ad Adj D/o Dis Con 01/31/2011 JORGEZOHREH Carvalho APRN A 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 01/31/2011 VERÓNICA SANTILLAN APRN R 309.3 Ad Adj D/o Dis Con 01/31/2011 VERÓNICA SANTILLAN APRN R 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 06/26/2011 724.2 LUMBAGO 06/26/2011 YOSSI VILLEGAS MD 724.2 Lumbago 06/26/2011 724.2 Lumbago 06/26/2011 724.2 Lumbago 06/26/2011 724.2 Lumbago 06/26/2011 724.2 Lumbago 06/26/2011 724.2 Lumbago 06/26/2011 ARTEAGA JESÚS SURESH K 724.2 Lumbago 06/26/2011 JORGE APRN, ZOHREH A 724.2 Lumbago 06/26/2011 724.2 Lumbago 06/26/2011 ARTEAGA JESÚS K 724.2 Lumbago 06/26/2011 JORGE MANAGER TECHNICAL SALES, ZOHREH A 724.2 Lumbago 06/26/2011 JORGEMaia RUIZ ZORHEH A 724.2 Lumbago 06/26/2011 JORGEMaia RUIZ ZOHREH A 724.2 Lumbago 06/26/2011 NETTE LORENZANA APRN 724.2 Lumbago 06/26/2011 ARTEAGA JESÚS K 724.2 Lumbago 06/26/2011 JORGE APRN, ZOHREH A 724.2 Lumbago 06/26/2011 VERÓNICA SANTILLAN APRN R 724.2 Lumbago 09/19/2011 300.00 AN ANXIETY UNSPEC 09/19/2011 YOSSI VILLEGAS MD 300.00 AN ANXIETY UNSPEC 09/19/2011 300.00 AN ANXIETY UNSPEC 09/19/2011 300.00 AN ANXIETY UNSPEC 09/19/2011 300.00 AN ANXIETY UNSPEC 09/19/2011 300.00 AN ANXIETY UNSPEC 09/19/2011 300.00 AN ANXIETY UNSPEC 09/19/2011 ARTEAGA DO, JESÚS K 300.00 AN ANXIETY UNSPEC 09/19/2011 JORGE MANAGER TECHNICAL SALES, ZOHREH A 300.00 AN ANXIETY UNSPEC 09/19/2011 300.00 AN ANXIETY UNSPEC 09/19/2011 ARTEAGA DO, JESÚS K 300.00 AN ANXIETY UNSPEC 09/19/2011 JORGE MANAGER TECHNICAL SALES, ZOHREH A 300.00 AN ANXIETY UNSPEC 09/19/2011 JORGE MANAGER TECHNICAL SALES, ZOHREH A 300.00 AN ANXIETY UNSPEC 09/19/2011 JORGE MANAGER TECHNICAL SALES, ZOHREH A 300.00 AN ANXIETY UNSPEC 09/19/2011 SALOMÓN MANAGER TECHNICAL SALESKALEYNETTE R 300.00 AN ANXIETY UNSPEC 09/19/2011 ARTEAGA DO, JESÚS K 300.00 AN ANXIETY UNSPEC 09/19/2011 JORGE MANAGER TECHNICAL SALES, ZOHREH A 300.00 AN ANXIETY UNSPEC 09/19/2011 JACQUE MANAGER TECHNICAL SALES VERÓNICA R 300.00 AN ANXIETY UNSPEC 09/22/2011 Ot 644.03 THRT SINAI LABOR-ANTEPART 11/27/2011 Ot 644.03 THRT SINAI LABOR-ANTEPART 12/30/2011 Ot 644.13 THREAT LABOR NEC-ANTEPAR 01/01/2012 Ot 645.11 POST TERM PREG, DELIV W/WO MENTION OF AN 01/01/2012 Ot 659.71 ABN DEL FET HT RT/RHYTHM,W OR W/O MENTIO 01/01/2012 Ot 663.31 CORD ENTANGLE NEC-DELIV 01/01/2012 Ot V27.0 DELIVER- SINGLE LIVEBORN 03/24/2012 309.9 AD ADJ D/O NOS [...] ADJ D/O NOS 03/24/2012 JESÚS ARTEAGA DO 684 Impetigo 03/24/2012 JESÚS ARTEAGA DO V03.89 Meningococcal Dx 03/24/2012 J[employer]GE [employer], ZOHREH A 309.9 AD ADJ D/O NOS 03/24/2012 [employer]GE [employer], ZOHREH A 684 Impetigo 03/24/2012 J[employer]GE [employer], ZOHREH A V03.89 Meningococcal Dx 03/24/2012 309.9 AD ADJ D/O NOS 03/24/2012 684 Impetigo 03/24/2012 V03.89 Meningococcal Dx 03/24/2012 JESÚS ARTEAGA DO 309.9 AD ADJ D/O NOS 03/24/2012 JESÚS ARTEAGA DO 684 Impetigo 03/24/2012 JESÚS ARTEAGA DO V03.89 Meningococcal Dx 03/24/2012 [employer]GE [employer], ZOHREH A 309.9 AD ADJ D/O NOS 03/24/2012 JORGE MA[employer]GER [employer], ZOHREH A 684 Impetigo 03/24/2012 JORGE MANAGER [employer], ZOHREH A V03.89 Meningococcal Dx 03/24/2012 J[employer]GE MA[employer], ZOHREH A 309.9 AD ADJ D/O NOS 03/24/2012 J[employer]GE MA[employer], ZOHREH A 684 Impetigo 03/24/2012 J[employer]GE MA[employer], ZOHREH A V03.89 Meningococcal Dx 03/24/2012 J[employer]GE MA[employer], ZOHREH A 309.9 AD ADJ D/O NOS 03/24/2012 [employer]GE [employer], ZOHREH A 684 Impetigo 03/24/2012 JORGE APRN, ZOHREH A V03.89 Meningococcal Dx 03/24/2012 SALOMÓN MANAGER TECHNICAL SALESKALEY CarvalhoNETTE R 309.9 AD ADJ D/O NOS 03/24/2012 SALOMÓN MA[employer], NETTE R 684 Impetigo 03/24/2012 KALEY LORENZANA APRNRICIA R V03.89 Meningococcal Dx 03/24/2012 ARTEAGA DOUJSTUSA K 309.9 AD ADJ D/O NOS 03/24/2012 ARTEAGA DO JESÚS K 684 Impetigo 03/24/2012 ARTEAGA DO JESÚS K V03.89 Meningococcal Dx 03/24/2012 JORGE APRN, ZOHREH A 309.9 AD ADJ D/O NOS 03/24/2012 JORGEMaia RUIZ ZOHREH A 684 Impetigo 03/24/2012 JORGEGYPSY Carvalho APRNIDI A V03.89 Meningococcal Dx 03/24/2012 JACQUE RUIZ, VERÓNICA R 309.9 AD ADJ D/O NOS 03/24/2012 JACQUE RUIZ VERÓNICA R 684 Impetigo 03/24/2012 JACQUE RUIZ VERÓNICA R V03.89 Meningococcal Dx 05/25/2012 V74.1 TB SCREENING 05/25/2012 NELLY AVILES, YOSSI V74.1 Tb Screening 05/25/2012 V74.1 Tb Screening 05/25/2012 V74.1 Tb Screening 05/25/2012 V74.1 Tb Screening 05/25/2012 V74.1 Tb Screening 05/25/2012 V74.1 Tb Screening 05/25/2012 JESÚS ARTEAGA DO K V74.1 Tb Screening 05/25/2012 JORGE APRN, ZOHREH A V74.1 Tb Screening 05/25/2012 V74.1 Tb Screening 05/25/2012 JESÚS ARTEAGA DO K V74.1 Tb Screening 05/25/2012 JORGE APRN, ZOHREH A V74.1 Tb Screening 05/25/2012 JORGEMaia RUIZ ZOHREH A V74.1 Tb Screening 05/25/2012 JORGE RUIZ, ZOHREH A V74.1 Tb Screening 05/25/2012 NETTE LORENZANA APRN R V74.1 Tb Screening 05/25/2012 JESÚS ARTEAGA DO K V74.1 Tb Screening 05/25/2012 [employer], ZOHREH A V74.1 Tb Screening 05/25/2012 JACQUE RUIZ, VERÓNICA R V74.1 Tb Screening 10/14/2012 V70.3 [...] For Administrative Purposes 10/14/2012 JESÚS ARTEAGA DO V70.3 Other General Medical Examination For Administrative Purposes 10/14/2012 [employer], ZOHREH A V70.3 Other General Medical Examination For Administrative Purposes 10/14/2012 V70.3 Other General Medical Examination For Administrative Purposes 10/14/2012 JESÚS ARTEAGA DO V70.3 Other General Medical Examination For Administrative Purposes 10/14/2012 [employer]GE [employer], ZOHREH A V70.3 Other General Medical Examination For Administrative Purposes 10/14/2012 JORGE MANAGER TECH[employer] SALES, ZOHREH A V70.3 Other General Medical Examination For Administrative Purposes 10/14/2012 JORGE MANAGER [employer] SALES, ZOHREH A V70.3 Other General Medical Examination For Administrative Purposes 10/14/2012 NETTE LORENZANA APRN V70.3 Other General Medical Examination For Administrative Purposes 10/14/2012 JESÚS ARTEAGA DO K V70.3 Other General Medical Examination For Administrative Purposes 10/14/2012 JORGE MANAGER [employer] SALES, ZOHREH A V70.3 Other General Medical Examination For Administrative Purposes 10/14/2012 JACQUE RUIZ, VERÓNICA R V70.3 Other General Medical Examination For Administrative Purposes 11/27/2012 YOSSI VILLEGAS MD 314.00 ATTENTION DEFICIT DISORDER OF CHILDHOOD WITHOUT HYPERACTIVITY 11/27/2012 YOSSI VILLEGAS MD V58.69 LONG-TERM (CURRENT) USE OF OTHER MEDICATIONS 11/27/2012 314.00 ATTENTION DEFICIT DISORDER OF CHILDHOOD WITHOUT HYPERACTIVITY 11/27/2012 V58.69 LONG-TERM ( CURRENT) USE OF OTHER MEDICATIONS 11/27/2012 314.00 ATTENTION DEFICIT DISORDER OF CHILDHOOD WITHOUT HYPERACTIVITY 11/27/2012 V58.69 LONG-TERM ( CURRENT) USE OF OTHER MEDICATIONS 11/27/2012 314.00 ATTENTION DEFICIT DISORDER OF CHILDHOOD WITHOUT HYPERACTIVITY 11/27/2012 V58.69 LONG-TERM ( CURRENT) USE OF OTHER MEDICATIONS 11/27/2012 314.00 ATTENTION DEFICIT DISORDER OF CHILDHOOD WITHOUT HYPERACTIVITY 11/27/2012 V58.69 LONG-TERM ( CURRENT) USE OF OTHER MEDICATIONS 11/27/2012 314.00 ATTENTION DEFICIT DISORDER OF CHILDHOOD WITHOUT HYPERACTIVITY 11/27/2012 V58.69 LONG-TERM ( CURRENT) USE OF OTHER MEDICATIONS 11/27/2012 JESÚS ARTEAGA DO 314.00 ATTENTION DEFICIT DISORDER OF CHILDHOOD WITHOUT HYPERACTIVITY 11/27/2012 JESÚS ARTEAGA DO V58.69 LONG-TERM (CURRENT) USE OF OTHER MEDICATIONS 11/27/2012 JORGE MANAGER [employer] SALES, ZOHREH A 314.00 ATTENTION DEFICIT DISORDER OF CHILDHOOD WITHOUT HYPERACTIVITY 11/27/2012 JORGE VEEN, ZOHREH A V58.69 LONG-TERM (CURRENT) USE OF OTHER MEDICATIONS 11/27/2012 314.00 ATTENTION DEFICIT DISORDER OF CHILDHOOD WITHOUT HYPERACTIVITY 11/27/2012 V58.69 LONG-TERM ( CURRENT) USE OF OTHER MEDICATIONS 11/27/2012 JESÚS ARTEAGA DO 314.00 ATTENTION DEFICIT DISORDER OF CHILDHOOD WITHOUT HYPERACTIVITY 11/27/2012 JESÚS ARTEAGA DO V58.69 LONG-TERM (CURRENT) USE OF OTHER MEDICATIONS 11/27/2012 JORGE MANAGER [employer] SALES, ZOHREH A 314.00 ATTENTION DEFICIT DISORDER OF CHILDHOOD WITHOUT HYPERACTIVITY 11/27/2012 JORGE MANAGER [employer] SALES, ZOHREH A V58.69 LONG-TERM (CURRENT) USE OF OTHER MEDICATIONS 11/27/2012 JORGE MANAGER [employer] SALES, ZOHREH A 314.00 ATTENTION DEFICIT DISORDER OF CHILDHOOD WITHOUT HYPERACTIVITY 11/27/2012 JORGE MANAGER [employer] SALES, ZOHREH A V58.69 LONG-TERM (CURRENT) USE OF OTHER MEDICATIONS 11/27/2012 JORGE MANAGER [employer] SALES, ZOHREH A 314.00 ATTENTION DEFICIT DISORDER OF CHILDHOOD WITHOUT HYPERACTIVITY 11/27/2012 JORGE MANAGER [employer] SALES, ZOHREH A V58.69 LONG-TERM (CURRENT) USE OF OTHER MEDICATIONS 11/27/2012 NETTE LORENZANA APRN 314.00 ATTENTION DEFICIT DISORDER OF CHILDHOOD WITHOUT HYPERACTIVITY 11/27/2012 LORENZANA MANAGER TECHNICAL SALES, NETTE R V58.69 LONG-TERM (CURRENT) USE OF OTHER MEDICATIONS 11/27/2012 JESÚS ARTEAGA DO K 314.00 ATTENTION DEFICIT DISORDER OF CHILDHOOD WITHOUT HYPERACTIVITY 11/27/2012 JESÚS ARTEAGA DO V58.69 LONG-TERM (CURRENT) USE OF OTHER MEDICATIONS 11/27/2012 JORGE MANAGER [employer] SALES, ZOHREH A 314.00 ATTENTION DEFICIT DISORDER OF CHILDHOOD WITHOUT HYPERACTIVITY 11/27/2012 JORGE MANAGER [employer] SALES, ZOHREH A V58.69 LONG-TERM (CURRENT) USE OF OTHER MEDICATIONS 11/27/2012 JACQUE MANAGER TECHNICAL SALES, VERÓNICA R 314.00 ATTENTION DEFICIT DISORDER OF CHILDHOOD WITHOUT HYPERACTIVITY 11/27/2012 JACQUE MANAGER TE[employer] SALES, VERÓNICA R V58.69 LONG-TERM (CURRENT) USE OF OTHER MEDICATIONS 12/10/2012 461.9 SINUSITIS ACUTE 12/10/2012 461.9 SINUSITIS ACUTE 12/10/2012 461.9 Sinusitis Acute 12/10/2012 461.9 Sinusitis Acute 12/10/2012 461.9 Sinusitis Acute 12/10/2012 JESÚS ARTEAGA DO 461.9 Sinusitis Acute 12/10/2012 JORGE MANAGER [employer] SALES, ZOHREH A 461.9 Sinusitis Acute 12/10/2012 461.9 Sinusitis Acute 12/10/2012 JESÚS ARTEAGA DO 461.9 Sinusitis Acute 12/10/2012 JORGE MANAGER TE[employer] SALES, ZOHREH A 461.9 Sinusitis Acute 12/10/2012 JORGE MANAGER TE[employer] SALES, ZOHREH A 461.9 Sinusitis Acute 12/10/2012 JORGE MANAGER TE[employer] SALES, ZOHREH A 461.9 Sinusitis Acute 12/10/2012 NETTE LORENZANA APRN 461.9 Sinusitis Acute 12/10/2012 JESÚS ARTEAGA DO 461.9 Sinusitis Acute 12/10/2012 JORGE MANAGER [employer] SALES, ZOHREH A 461.9 Sinusitis Acute 12/10/2012 JACQUE RUIZ, VERÓNICA R 461.9 Sinusitis Acute 01/01/2013 133.0 SCABIES 01/01/2013 133.0 Scabies 01/01/2013 133.0 Scabies 01/01/2013 133.0 Scabies 01/01/2013 JESÚS ARTEAGA DO K 133.0 Scabies 01/01/2013 JORGE MANAGER TE[employer] SALES, ZOHREH A 133.0 Scabies 01/01/2013 133.0 Scabies 01/01/2013 ARTEAGA DO, JESÚS K 133.0 Scabies 01/01/2013 JORGE MANAGER TECHNICAL SALES, ZOHREH A 133.0 Scabies 01/01/2013 JORGE MANAGER TECHNICAL SALES, ZOHREH A 133.0 Scabies 01/01/2013 JORGE MANAGER TECHNICAL SALES, ZOHREH A 133.0 Scabies 01/01/2013 NETTE LORENZANA APRN R 133.0 Scabies 01/01/2013 ARTEAGA DO, JESÚS K 133.0 Scabies 01/01/2013 JORGE MANAGER TECH[employer] SALES, ZOHREH A 133.0 Scabies 01/01/2013 VERÓNICA SANTILLAN APRN R 133.0 Scabies 03/05/2013 368.10 VISUAL DISTURBANCE UNSPECIFIED 03/05/2013 368.10 VISUAL DISTURBANCE UNSPECIFIED 03/05/2013 ARTEAGA DO, JESÚS K 368.10 VISUAL DISTURBANCE UNSPECIFIED 03/05/2013 JORGE MANAGER TECH[employer] SALES, ZOHREH A 368.10 VISUAL DISTURBANCE UNSPECIFIED 03/05/2013 368.10 VISUAL DISTURBANCE UNSPECIFIED 03/05/2013 ARTEAGA DO, JESÚS K 368.10 VISUAL DISTURBANCE UNSPECIFIED 03/05/2013 JORGE MANAGER TECH[employer] SALES, ZOHREH A 368.10 VISUAL DISTURBANCE UNSPECIFIED 03/05/2013 JORGE MANAGER TECHNICAL SALES, ZOHREH A 368.10 VISUAL DISTURBANCE UNSPECIFIED 03/05/2013 JORGE MANAGER TECHN[employer] SALES, ZOHREH A 368.10 VISUAL DISTURBANCE UNSPECIFIED 03/05/2013 NETTE LORENZANA APRN R 368.10 VISUAL DISTURBANCE UNSPECIFIED 03/05/2013 ARTEAGA DO, JESÚS K 368.10 VISUAL DISTURBANCE UNSPECIFIED 03/05/2013 JORGE MANAGER TECH[employer] SALES, ZOHREH A 368.10 VISUAL DISTURBANCE UNSPECIFIED 03/05/2013 JACQUE MANAGER TECHNICAL SALESARVIND CarvalhoINA R 368.10 VISUAL DISTURBANCE UNSPECIFIED 07/23/2013 ARTEAGA DO, JESÚS K V25.9 CONTRACEPTION MANAGEMENT 07/23/2013 JORGE MANAGER TECH[employer] SALES, ZOHREH A V25.9 CONTRACEPTION MANAGEMENT 07/23/2013 V25.9 CONTRACEPTION MANAGEMENT 07/23/2013 ARTEAGA DO, JESÚS K V25.9 CONTRACEPTION MANAGEMENT 07/23/2013 JORGE MANAGER TECHNICAL SALES, ZOHREH A V25.9 CONTRACEPTION MANAGEMENT 07/23/2013 JORGE MANAGER TECHNICAL SALES, ZOHREH A V25.9 CONTRACEPTION MANAGEMENT 07/23/2013 JORGE VEEN, ZOHREH A V25.9 CONTRACEPTION MANAGEMENT 07/23/2013 NETTE LORENZANA APRN R V25.9 CONTRACEPTION MANAGEMENT 07/23/2013 ARTEAGA DO, JESÚS K V25.9 CONTRACEPTION MANAGEMENT 07/23/2013 JORGE VEEN, ZOHREH A V25.9 CONTRACEPTION MANAGEMENT 07/23/2013 VERÓNICA SANTILLAN APRN R V25.9 CONTRACEPTION MANAGEMENT 10/12/2013 JORGE VEEN, ZOHREH A 599.70 HEMATURIA UNSPECIFIED 10/12/2013 JORGE VEEN, ZOHREH A V74.5 STD SCREEN 10/12/2013 599.70 HEMATURIA UNSPECIFIED 10/12/2013 V74.5 STD SCREEN 10/12/2013 ARTEAGA DO, JESÚS K 599.70 HEMATURIA UNSPECIFIED 10/12/2013 ARTEAGA DO, JESÚS K V74.5 STD SCREEN 10/12/2013 GYPSY PATEL APRNIDI A 599.70 HEMATURIA UNSPECIFIED 10/12/2013 JORGE VEEN, ZOHREH A V74.5 STD SCREEN 10/12/2013 JORGE VEEN, ZOHREH A 599.70 HEMATURIA UNSPECIFIED 10/12/2013 JORGE VEEN, ZOHREH A V74.5 STD SCREEN 10/12/2013 JORGE RUIZ, ZOHREH A 599.70 HEMATURIA UNSPECIFIED 10/12/2013 JORGE VEEN, ZOHREH A V74.5 STD SCREEN 10/12/2013 NETTE LORENZANA APRN R 599.70 HEMATURIA UNSPECIFIED 10/12/2013 DEBI LORENZANA APRNIA R V74.5 STD SCREEN 10/12/2013 ARTEAGA DO, JESÚS K 599.70 HEMATURIA UNSPECIFIED 10/12/2013 ARTEAGA DO, JESÚS K V74.5 STD SCREEN 10/12/2013 JORGE VEEN, ZOHREH A 599.70 HEMATURIA UNSPECIFIED 10/12/2013 JORGE MANAGER TECHNICAL SALES, ZOHREH A V74.5 STD SCREEN 10/12/2013 ARVIND SANTILLAN APRNINA R 599.70 HEMATURIA UNSPECIFIED 10/12/2013 ARVIND SANTILLAN APRNINA R V74.5 STD SCREEN 03/28/2014 MERCED KIDD Ot 276.50 VOLUME DEPLETION, UNSPECIFIED 03/28/2014 MERCED KIDD Ot 626.2 EXCESSIVE MENSTRUATION 03/28/2014 MERCED KIDD Ot 789.00 ABDOMINAL PAIN, UNSPECIFIED SITE 09/19/2014 JORGE RUIZ, ZOHREH A 625.8 OTHER SPECIFIED SYMPTOMS ASSOCIATED WITH FEMALE GENITAL ORGANS 09/19/2014 JACQUE RUIZ, VERÓNICA R 625.8 OTHER SPECIFIED SYMPTOMS ASSOCIATED WITH FEMALE GENITAL ORGANS 10/29/2014 DEJON AVILES, RUPINDER Doran Ot 599.0 URIN TRACT INFECTION NOS 10/29/2014 DEJON AVILES, RUPINDER A Ot 643.03 MILD HYPEREMESIS-ANTEPAR 10/29/2014 DEJON AVILES, RUPINDER A Ot 646.63 INFECTION-ANTEPARTUM 11/01/2014 FLIP ESPARZA DO Ot 039.8 ACTINOMYCOSIS NEC 11/01/2014 FLIP ESPARZA DO Ot 599.0 URIN TRACT INFECTION NOS 11/01/2014 FLIP ESPARZA DO C Ot 634.71 SPON AB W COMPL NEC-INC 11/08/2014 ECHO ALEXANDRE DO Ot 789.09 ABDOMINAL PAIN, OTHER SPECIFIED SITE 12/27/2014 JACQUE RUIZ, VERÓNICA R 719.45 PAIN IN JOINT INVOLVING PELVIC REGION AND THIGH 01/14/2015 DIANA TORREZ DOA K Ot 623.8 NONINFLAM DIS VAGINA NEC 01/14/2015 DIANA TORREZ DOA K Ot 634.90 SPON ABORT UNCOMPL-UNSP 02/02/2015 [...] Ot R10.30 LOWER ABDOMINAL PAIN, UNSPECIFIED 08/05/2016 CORNELL NAIK MD, Ot Z3A.14 14 WEEKS GESTATION OF 08/10/2016 [...] 33 WEEKS GESTATION OF 12/14/2016 ESPARZA DO, FLIP C Ot E83.42 HYPOMAGNESEMIA 12/14/2016 ESPARZA FLIP C Ot I47.2 VENTRICULAR TACHYCARDIA 12/14/2016 ESPARZA FLIP C Ot O99.283 ENDO, NUTRITIONAL AND METAB DISEASES COM 12/14/2016 ISAIAS SURESH FLIP C Ot 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 , 12/14/2016 ESPARZAFLIP Neff DO Ot Z3A.33 33 WEEKS GESTATION OF 12/18/2016 ESPARZAFLIP Neff DO C Ot E83.42 HYPOMAGNESEMIA 12/18/2016 ESPARZAAishwarya SURESH FLIP C Ot F41.9 ANXIETY DISORDER, UNSPECIFIED 12/18/2016 ESPARZAFLIP Neff DO Ot I47.2 VENTRICULAR TACHYCARDIA 12/18/2016 ESPARZAJIN Neff DOA C Ot O99.283 ENDO, NUTRITIONAL AND METAB DISEASES COM 12/18/2016 ESPARZA FLIP C Ot O99.343 OTH MENTAL DISORDERS COMPLICATING PREGNA 12/18/2016 JIN ESPARZA DOA C Ot 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 , 12/18/2016 ESPARZAFLIP Neff DO Ot R07.89 OTHER CHEST PAIN 12/18/2016 FLIP ESPARZA DO Ot Z23 ENCOUNTER FOR IMMUNIZATION 12/18/2016 FLIP ESPARZA DO Ot Z3A.34 34 WEEKS GESTATION OF 12/20/2016 BOB AVILES, MARTHA Helm Ot R00.2 PALPITATIONS 12/20/2016 BOB AVILES, MARTHA Helm Ot R06.02 SHORTNESS OF BREATH 12/26/2016 MARTHA ROJAS MD Ot R00.2 PALPITATIONS 12/26/2016 MARTHA ROJAS MD Ot R06.02 SHORTNESS OF BREATH 12/26/2016 MARTHA ROJAS MD Ot R00.2 PALPITATIONS 12/26/2016 MARTHA ROJAS MD Ot R06.02 SHORTNESS OF BREATH 01/09/2017 FLIP ESPARZA DO Ot I47.2 VENTRICULAR TACHYCARDIA 01/09/2017 FLIP ESPARZA DO C Ot O69.81X0 LABOR AND DEL COMP BY CORD AROUND NECK, 01/09/2017 FLIP ESPARZA DO C Ot 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 , 01/09/2017 FLIP ESPARZA DO Erika Ot Z37.0 SINGLE LIVE 01/09/2017 FLIP ESPARZA DO Ot Z3A.37 37 WEEKS GESTATION OF 02/05/2017 MARTHA ROJAS MD Ot I47.2 VENTRICULAR TACHYCARDIA 02/05/2017 MARTHA ROJAS MD Ot R00.2 PALPITATIONS 02/05/2017 MARTHA ROJAS MD Ot R06.02 SHORTNESS OF BREATH 03/20/2017 MARTHA ROJAS MD Ot I47.2 VENTRICULAR TACHYCARDIA 03/20/2017 MARTHA ROJAS MD Ot R00.2 PALPITATIONS 03/20/2017 MARTHA ROJAS MD Ot R06.02 SHORTNESS OF BREATH 04/21/2017 MARTHA ROJAS MD Ot I47.2 VENTRICULAR TACHYCARDIA 04/21/2017 MARTHA ROJAS MD Ot N83.209 UNSPECIFIED OVARIAN CYST, UNSPECIFIED SI 04/21/2017 MARTHA ROJAS MD Ot R00.2 PALPITATIONS 04/21/2017 MARTHA ROJAS MD Ot R06.02 SHORTNESS OF BREATH 05/05/2017 MARTHA ROJAS MD Ot I47.2 VENTRICULAR TACHYCARDIA 05/05/2017 MARTHA ROJAS MD Ot R00.2 PALPITATIONS 05/05/2017 MARTHA ROJAS MD Ot R06.02 SHORTNESS OF BREATH 05/06/2017 MARTHA ROJAS MD Ot I47.2 VENTRICULAR TACHYCARDIA 05/06/2017 MARTHA ROJAS MD Ot R00.2 PALPITATIONS 05/06/2017 MARTHA ROJAS MD Ot R06.02 SHORTNESS OF BREATH 05/06/2017 MARTHA ROJAS MD Ot I47.2 VENTRICULAR TACHYCARDIA 05/06/2017 MARTHA ROJAS MD Ot R00.2 PALPITATIONS 05/06/2017 MARTHA ROJAS MD Ot R06.02 SHORTNESS OF BREATH Procedures Code Description Performed By Performed On 73.6 EPISIOTOMY 12/30/2011 46315 Audiogram (Screening) 10/14/2012 82867 Screening Test Of Visual Acuity, Quantitative, Bilateral 10/14/2012 64843 UA LONG DIP 03/05/2013 15480 Screening Test Of Visual Acuity, Quantitative, Bilateral 03/06/2013 28648 URINE TEST (IN- HOUSE) 07/23/2013 23255 THERAPUTIC INJ SQ/IM 07/23/2013 J1050 DEPO PROVERA 07/23/2013 27088 THERAPUTIC INJ SQ/IM 10/12/2013 J1050 DEPO PROVERA 10/12/2013 88413 CULTURE URINE 10/12/2013 10494 GC/CHLAM URINE (STATE) 10/12/2013 12672 TEST, URINE (IN- HOUSE) 10/12/2013 79258 UA W/ CULTURE IF INDICATED 10/12/2013 87103 GC/CHLAM PROBE (STATE) 12/16/2013 05555 THERAPUTIC INJ SQ/IM 12/28/2013 J1050 DEPO PROVERA 12/28/2013 23977 TEST, URINE (IN- HOUSE) 12/28/2013 72989 AMERITOX 06/16/2014 60939 XRAY HIP RIGHT UNILATERAL MIN 2 VIEWS 12/27/2014 [id number] DELIVERY OF PRODUCTS OF CONCEPTION, EXTE 01/07/2017 Results Test Result Range Complete blood count (CBC) with automated white blood cell (WBC) differential - 08/02/16 10:06 Blood leukocytes automated count (number/volume) 12.7 10*3/uL 4.3-11.0 Blood erythrocytes automated count (number/volume) 3.67 10*6/uL 4.35-5.85 Venous blood hemoglobin measurement (mass/volume) 11.4 [...] Automated blood platelet mean volume measurement 10.3 [foz_us] 7.4-10.4 Automated blood neutrophils/100 leukocytes 83 % [...] 10:06 Serum or plasma choriogonadotropin measurement (units/volume) 60661 m[iU]/mL <5 Complete urinalysis with reflex to culture - 08/02/16 10:13 Urine color determination YELLOW NRG Urine clarity determination VERY CLOUDY NRG Urine pH measurement by test strip 6 5-9 Specific gravity of urine by test strip 1.015 1.016- 1.022 Urine protein assay by test strip, semi-quantitative [...] culture - 08/02/16 10:13 Bacterial urine culture [id number] NRG COLONY COUNT >100,000/ML NRG FTX;REPORTABLE SENSITIVITY REPORTED 08/04/16 12:10 NRG Bacterial susceptibility panel - 08/02/16 10:13 Gentamicin susceptibility test by minimum inhibitory concentration < = NRG Trimethoprim/sulfamethoxazole susceptibility test by minimum inhibitoryconcentration <= NRG Ampicillin susceptibility test by minimum inhibitory concentration > = NRG Tobramycin susceptibility test by minimum inhibitory concentration < = NRG Cefazolin susceptibility test by minimum inhibitory concentration < = NRG Ceftriaxone susceptibility test by minimum inhibitory concentration <= NRG Ampicillin/sulbactam susceptibility test by minimum inhibitory concentration 16 NRG Piperacillin/tazobactam susceptibility test by minimum inhibitory concentration <= NRG Ciprofloxacin susceptibility test by minimum inhibitory concentration <= NRG Meropenem susceptibility test by minimum inhibitory concentration < = NRG Nitrofurantoin susceptibility test by minimum inhibitory concentration <= NRG Aztreonam susceptibility test by minimum inhibitory concentration < = NRG Extended spectrum beta lactamase (ESBL) producing bacteria susceptibility test by minimum inhibitory concentration - NRG Complete blood count (CBC) with automated white blood cell (WBC) differential - 12/12/16 22:47 Blood leukocytes automated count (number/volume) 10.5 10*3/uL 4.3-11.0 Blood erythrocytes automated count (number/volume) 3.42 10*6/uL 4.35-5.85 Venous blood hemoglobin measurement (mass/volume) 10.6 [...] Automated blood platelet mean volume measurement 10.4 [foz_us] 7.4-10.4 Automated blood neutrophils/100 leukocytes 68 % [...] Serum or plasma sodium measurement (moles/volume) 136 mmol/L 135-145 Serum or plasma potassium measurement (moles/volume) 3.9 mmol/L 3.6-5.0 Serum or plasma chloride measurement (moles/volume) 107 mmol/L 98-107 Carbon dioxide 19 mmol/L 21-32 Serum or plasma anion gap determination (moles/volume) 10 mmol/L 5-14 Serum or plasma urea nitrogen measurement (mass/volume) 5 mg/dL 7-18 Serum or plasma creatinine measurement (mass/volume) 0.58 mg/dL 0.60-1.30 Serum or plasma urea nitrogen/creatinine mass [...] ABO+Rh group AP NRG Transfusion band number [id number] Blood group antibody screen NEGATIVE NRG Complete blood count (CBC) with automated white blood cell (WBC) differential - 12/16/16 14:33 Blood leukocytes automated count (number/volume) 9.7 10*3/uL 4.3-11.0 Blood erythrocytes automated count (number/volume) 3.87 10*6/uL 4.35-5.85 Venous blood hemoglobin measurement (mass/volume) 11.9 [...] Automated blood platelet mean volume measurement 10.6 [foz_us] 7.4-10.4 Automated blood neutrophils/100 leukocytes 71 % [...] Serum or plasma sodium measurement (moles/volume) 138 mmol/L 135-145 Serum or plasma potassium measurement (moles/volume) 4.0 mmol/L 3.6-5.0 Serum or plasma chloride measurement (moles/volume) 109 mmol/L 98-107 Carbon dioxide 20 mmol/L 21-32 Serum or plasma anion gap determination (moles/volume) 9 mmol/L 5-14 Serum or plasma urea nitrogen measurement (mass/volume) 5 mg/dL 7-18 Serum or plasma creatinine measurement (mass/volume) 0.59 mg/dL 0.60-1.30 Serum or plasma urea nitrogen/creatinine mass [...] or plasma troponin i.cardiac measurement (mass/volume) < ng/ mL <0.30 Serum or plasma lithium measurement (moles/volume) - 12/16/16 14:33 BNP level 17.0 pg/mL <100.0 Whole blood basic metabolic panel - 12/18/16 06:03 Serum or plasma sodium measurement (moles/volume) 136 mmol/L 135-145 Serum or plasma potassium measurement (moles/volume) 3.9 mmol/L 3.6-5.0 Serum or plasma chloride measurement (moles/volume) 108 mmol/L 98-107 Carbon dioxide 18 mmol/L 21-32 Serum or plasma anion gap determination (moles/volume) 10 mmol/L 5-14 Serum or plasma urea nitrogen measurement (mass/volume) 5 mg/dL 7-18 Serum or plasma creatinine measurement (mass/volume) 0.56 mg/dL 0.60-1.30 Serum or plasma urea nitrogen/creatinine mass [...] 06:50 Blood leukocytes automated count (number/volume) 9.4 10*3/uL 4.3-11.0 Blood erythrocytes automated count (number/volume) 3.72 10*6/uL 4.35-5.85 Venous blood hemoglobin measurement (mass/volume) 11.5 [...] Automated blood platelet mean volume measurement 10.7 [foz_us] 7.4-10.4 Automated blood neutrophils/100 leukocytes 71 % [...] ABO+Rh group AP NRG Transfusion band number [id number] NRG Blood group antibody screen NEGATIVE NRG Complete urinalysis with reflex to culture - 01/07/17 07:30 Urine color determination YELLOW NRG Urine clarity determination CLEAR NRG Urine pH measurement by test strip 7 5-9 Specific gravity of urine by test strip 1.010 1.016- 1.022 Urine protein assay by test strip, semi-quantitative [...] 05:35 Blood leukocytes automated count (number/volume) 11.2 10*3/uL 4.3-11.0 Blood erythrocytes automated count (number/volume) 3.62 10*6/uL 4.35-5.85 Venous blood hemoglobin measurement (mass/volume) 11.2 [...] Automated blood platelet mean volume measurement 10.5 [foz_us] 7.4-10.4 Automated blood neutrophils/100 leukocytes 70 % [...] Status Pt. Type Provider Facility Loc./Unit Complaint [id number] 12/27/2014 10:41:00 12/27/2014 23:59:59 CLS Outpatient VERÓNICA SANTILLAN APRN [id number] 09/19/2014 15:10:00 09/19/2014 23:59:59 CLS Outpatient ZOHREH PATEL APRN [id number] 06/14/2014 14:42:00 06/14/2014 23:59:59 CLS Outpatient JESÚS ARTEAGA DO [id number] 05/30/2014 13:37:00 05/30/2014 23:59:59 CLS Outpatient NETTE LORENZANA APRN [id number] 12/28/2013 13:16:00 12/28/2013 23:59:59 CLS Outpatient JORGEZOHREH Carvalho APRN [id number] 12/28/2013 13:16:00 12/28/2013 23:59:59 CLS Outpatient ZOHREH PATEL APRN [id number] 12/16/2013 15:25:00 12/16/2013 23:59:59 CLS Outpatient JORGEZOHREH Carvalho APRN [id number] 11/25/2013 15:40:00 11/25/2013 23:59:59 CLS Outpatient JESÚS ARTEAGA DO [id number] 10/12/2013 09:26:00 10/12/2013 23:59:59 CLS Outpatient JORGEZOHREH Carvalho APRN [id number] 07/23/2013 10:27:00 07/23/2013 23:59:59 CLS Outpatient JESÚS ARTEAGA DO [id number] 01/01/2013 13:55:00 01/01/2013 23:59:59 CLS Outpatient [id number] 12/10/2012 14:36:00 12/10/2012 23:59:59 CLS Outpatient [id number] 11/27/2012 09:22:00 11/27/2012 23:59:59 CLS Outpatient YOSSI VILLEGAS MD [id number] 10/14/2012 08:30:00 10/14/2012 23:59:59 CLS Outpatient [id number] 10/12/2013 09:26:00 Document Registration [id number] 03/05/2013 09:50:00 Document Registration [id number] 03/05/2013 09:50:00 Document Registration [id number] 01/26/2013 13:15:00 Document Registration [id number] 05/06/2017 10:00:00 05/06/2017 23:59:59 CLS Preadmit MARTHA ROJAS MD [facility] CARD R0032,I47.2,R06.02, N83.209 [id number] 02/04/2017 10:05:00 05/05/2017 00:01:00 DIS Outpatient MARTHA ROJAS MD [facility] CARD R0032,I47.2,R06.02, N83.209 [id number] 03/31/2017 11:08:00 03/31/2017 23:59:59 CLS Outpatient MARTHA ROJAS MD [facility] CARD R00.2,I47.2,R06.02, N83.209 [id number] 02/19/2017 10:31:00 02/19/2017 23:59:59 CLS Outpatient MARTHA ROJAS MD [facility] CARD R00.2,I47.2,R06.02, N83.209 [id number] 01/07/2017 06:12:00 01/09/2017 12:40:00 DIS Inpatient FLIP ESPARZA DO [facility] LDRP HISTORY OF SUSTAINED V- TACH,INDUCTION [id number] 12/16/2016 16:20:00 12/18/2016 13:55:00 DIS Inpatient FLIP ESPARZA DO [facility] LDRP DYSPNEA,HISTORY OF V- TACH,34 WEEKS GESTATION [id number] 12/12/2016 22:10:00 12/14/2016 13:37:00 DIS Inpatient FLIP ESPARZA DO [facility] LDRP TACHYCARDIA [id number] 12/12/2016 11:00:00 12/12/2016 23:59:59 CLS Outpatient MARTHA ROJAS MD [facility] CARD PALPITATION,SOB [id number] 12/11/2016 08:48:00 12/11/2016 23:59:59 CLS Outpatient MARTHA ROJAS MD [facility] CARD PALPITATION,SOB ON EXERTION [id number] 12/05/2016 11:08:00 12/05/2016 23:59:59 CLS Outpatient MARTHA ROJAS MD [facility] LAB PALPITATION [id number] 11/21/2016 12:21:00 11/21/2016 23:59:59 CLS Outpatient FLIP ESPARZA DO [facility] CARD TACHYCARDIA [id number] 08/02/2016 09:53:00 08/02/2016 11:14:00 DIS Emergency CORNELL NAIK MD [facility] ER ABD PAIN/CRAMPING UTI SYMPTOMS 14 WKS PREG [id number] 02/02/2015 04:30:00 02/02/2015 07:40:00 DIS Emergency AMANDA HOWARD MD [facility] ER ABD PAIN [id number] 01/13/2015 22:01:00 01/14/2015 00:10:00 DIS Emergency JAMA TORREZ DO [facility] ER SPOTTING POSS [id number] 11/08/2014 02:43:00 11/08/2014 05:09:00 DIS Emergency ECHO ALEXANDRE DO [facility] ER ABD PAIN [id number] 11/01/2014 07:43:00 11/01/2014 13:45:00 DIS Outpatient FLIP ESPARZA DO [facility] SDC INEVITABLE AB [id number] 10/29/2014 19:51:00 10/29/2014 22:00:00 DIS Emergency RUPINDER ASHFORD MD [facility] ER FEVER;13 WKS [id number] 03/28/2014 17:21:00 03/28/2014 19:05:00 DIS Emergency MERCED KIDD [facility] ER FEVER,WEAKNES, DIZZINESS [id number] 12/30/2011 02:50:00 Document Registration [id number] 12/30/2011 00:00:00 Document Registration [id number] 11/27/2011 19:23:00 Document Registration [id number] 09/22/2011 19:34:00 Document Registration
[2017-12-10] MEDS ORDERED: ONDA8TAB9 PO (14:55)
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
[2017-12-10] MEDS ORDERED: AMOX500C2 PO (15:31)
[2017-12-10 15:43] VITALS: BP 122/82
== END 2017-12-10 15:43 | disposition home or self-care (01) ==
LOC: EDUNIT# 13:21 → ER 13:23
DX: S06.0X0A Concussion without loss of consciousness, initial encounter (principal); R40.2142 Coma scale, eyes open, spontaneous, at arrival to emergency department; R40.2252 Coma scale, best verbal response, oriented, at arrival to emergency department; R40.2362 Coma scale, best motor response, obeys commands, at arrival to emergency department; J32.0 Chronic maxillary sinusitis; J45.909 Unspecified asthma, uncomplicated; Z87.448 Personal history of other diseases of urinary system; Z88.8 Allergy status to other drugs, medicaments and biological substances; Z87.891 Personal history of nicotine dependence; V49.40XA Driver injured in collision with unspecified motor vehicles in traffic accident, initial encounter
CPT/HCPCS: 70450; 72125

== ENCOUNTER 2019-08-27 05:37 | Outpatient (CLI) | payer MEDICAID ==
[~2019-08-27] VITALS: Ht 165 cm; Wt 73.6 kg
[~2019-08-27 05:37] MED LIST changes: +AMOX500C2 PO; +ONDA8TAB9 PO
[2019-08-27] MEDS ORDERED: L.AC1CAP6 PO (09:35)
== END 2019-08-27 09:45 | disposition home or self-care (01) ==
LOC: PREOP 05:37
PROVIDERS: ATTEND Otolaryngology Otolaryngology/Facial Plastic Surgery
DX: Z01.818 Encounter for other preprocedural examination (principal)

== ENCOUNTER 2019-09-09 14:07 | Emergency (ER) | payer MEDICAID ==
[~2019-09-09] VITALS: Ht 165 cm; Wt 72.7 kg
[~2019-09-09 14:07] MED LIST changes: +AMOX250S5 PO; +DEXAINTSOL PO; +HYDR15SO8 PO; +L.AC1CAP6 PO; -MAGN400T6 PO; +MAGN400T8 PO; -METO-370 PO; -METO-387 PO; +METO50TA7 PO; +MTP25TSR PO; +TETRACAINESUCKERS MT
[2019-09-09 15:00] LABS: BASOPHILS % (AUTO) 0 % (0-10); EOSINOPHILS # (AUTO) 0.1 10^3/uL (0.0-0.3); EOSINOPHILS % (AUTO) 1 % (0-10); HEMATOCRIT 38 % (35-52); HEMOGLOBIN 12.5 G/DL (11.5-16.0); LYMPHOCYTES # (AUTO) 2.3 X 10^3 (1.0-4.0); LYMPHOCYTES % (AUTO) 17 % (12-44); MEAN CORPUSCULAR HEMOGLOBIN 29 PG (25-34); MEAN CORPUSCULAR HGB CONC 33 G/DL (32-36); MEAN CORPUSCULAR VOLUME 89 FL (80-99); MEAN PLATELET VOLUME 10.1 FL (7.4-10.4); MONOCYTES # (AUTO) 0.7 X 10^3 (0.0-1.0); MONOCYTES % (AUTO) 5 % (0-12); NEUTROPHILS # (AUTO) 10.4 X 10^3 (1.8-7.8); NEUTROPHILS % (AUTO) 77 % (42-75); PLATELET COUNT 362 10^3/uL (130-400); WHITE BLOOD COUNT 13.5 10^3/uL (4.3-11.0)
[2019-09-09] MEDS ORDERED: ONDANSETRON 4 MG/2 ML (SDV) Z0FRAN IVP ONE (15:00)
[2019-09-09] MEDS ORDERED: fentaNYL INJECTION 100 MCG/2 ML AMP IVP ONE (15:00)
[2019-09-09 15:11] LABS: ALANINE AMINOTRANSFERASE 15 U/L (0-55); ALBUMIN 4.5 GM/DL (3.2-4.5); ALKALINE PHOSPHATASE 55 U/L (40-136); BILIRUBIN,TOTAL 0.6 MG/DL (0.1-1.0); BUN/CREATININE RATIO 9; CALCIUM 9.5 MG/DL (8.5-10.1); CARBON DIOXIDE 22 MMOL/L (21-32); CHLORIDE 102 MMOL/L (98-107); GFR ESTIMATED > 60; GLUCOSE 88 MG/DL (70-105); POTASSIUM 3.7 MMOL/L (3.6-5.0); SODIUM 136 MMOL/L (135-145); TOTAL PROTEIN 7.4 GM/DL (6.4-8.2)
[2019-09-09] MEDS: NS IV 1000 ML 1,000 ML IV SCH ×2 (15:17→15:54)
[2019-09-09] MEDS ORDERED: NS IV 1000 ML 1,000 ML IV SCH (16:00)
[2019-09-09] MEDS ORDERED: ANTACID SUSP 30 ML UDC (MYLANTA) PO ONE (16:00)
[2019-09-09] MEDS ORDERED: PROMETHAZINE INJ 25 MG/ML (PHENERGAN) AMP IVP ONE (16:00)
[2019-09-09] MEDS ORDERED: LIDOCAINE 2% VISCOUS 15 ML UDC PO ONE (16:00)
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
[2019-09-09] MEDS ORDERED: ONDA4TAB11 PO (16:54)
[2019-09-09 17:15] VITALS: BP 122/81
== END 2019-09-09 17:15 | disposition home or self-care (01) ==
LOC: EDUNIT# 14:07 → ER 14:10
DX: R11.2 Nausea with vomiting, unspecified (principal); G89.18 Other acute postprocedural pain; J45.909 Unspecified asthma, uncomplicated; D64.9 Anemia, unspecified; Z87.440 Personal history of urinary (tract) infections; Z88.8 Allergy status to other drugs, medicaments and biological substances; Z87.891 Personal history of nicotine dependence; Z77.22 Contact with and (suspected) exposure to environmental tobacco smoke (acute) (chronic); Z90.89 Acquired absence of other organs
CPT/HCPCS: 36415; 80053; 85025; 96361; 96374; 96375

== ENCOUNTER 2019-09-15 13:02 | Emergency (ER) | payer MEDICAID ==
[~2019-09-15] VITALS: Ht 165.1 cm; Wt 66.4 kg
[~2019-09-15 13:02] MED LIST changes: +MAGN400T6 PO; -MAGN400T8 PO; +METO-370 PO; +METO-387 PO; -METO50TA7 PO; -MTP25TSR PO; +ONDA4TAB11 PO
[2019-09-15] MEDS ORDERED: PROMETHAZINE INJ 25 MG/ML (PHENERGAN) AMP IVP ONE (13:15)
[2019-09-15] MEDS ORDERED: NS IV 1000 ML 1,000 ML IV SCH (13:15)
[2019-09-15 13:37] LABS: BASOPHILS % (AUTO) 0 % (0-10); EOSINOPHILS # (AUTO) 0.1 10^3/uL (0.0-0.3); EOSINOPHILS % (AUTO) 1 % (0-10); HEMATOCRIT 40 % (35-52); HEMOGLOBIN 13.9 G/DL (11.5-16.0); LYMPHOCYTES # (AUTO) 2.3 X 10^3 (1.0-4.0); LYMPHOCYTES % (AUTO) 15 % (12-44); MEAN CORPUSCULAR HEMOGLOBIN 29 PG (25-34); MEAN CORPUSCULAR HGB CONC 34 G/DL (32-36); MEAN CORPUSCULAR VOLUME 85 FL (80-99); MEAN PLATELET VOLUME 10.1 FL (7.4-10.4); MONOCYTES # (AUTO) 0.6 X 10^3 (0.0-1.0); MONOCYTES % (AUTO) 4 % (0-12); NEUTROPHILS # (AUTO) 12.3 X 10^3 (1.8-7.8); NEUTROPHILS % (AUTO) 80 % (42-75); PLATELET COUNT 522 10^3/uL (130-400); RED CELL DISTRIBUTION WIDTH 13.9 % (10.0-14.5); WHITE BLOOD COUNT 15.2 10^3/uL (4.3-11.0)
--- NOTE | 2019-09-15 13:50 | ED GI ---
General Chief Complaint: Abdominal/GI Problems Stated Complaint: DEHYDRATED Nursing Triage Note: Pt amb to triage with c/o nausea, vomiting, and chills. Pt reports to be 12 days post T&A by Dr. Bartlett. Reports throat discomfort and denies bleeding. Sepsis Screen: No Definite Risk Source of Information: Patient Exam Limitations: No Limitations History of Present Illness Date Seen by Provider: Sep 15, 2019 Time Seen by Provider: 13:00 Initial Comments To ER from Dr. Bartlett's office with nausea and vomiting. She's had persistent nausea and vomiting for the past 3-4 days, Zofran at home was not helpful. No abdominal pain and no diarrhea. She had a tonsillectomy 12 days ago. No fevers or chills, she is able to drink but nothing wants to stay down. She states she gets a gagging sensation any time she starts to swallow. Timing/Duration: 3-4 Days Severity/Quality: Moderate Location: Generalized Abdomen Radiation: No Radiation Activities at Onset: None Associated Symptoms: No Fever/Chills; Nausea/Vomiting Allergies and Home Medications Allergies Coded Allergies: guaifenesin (Verified Allergy, Mild, HIVES/FEVER, 08/27/19) Home Medications Amoxicillin 250 Mg/5 Ml Susp, 1 TSP PO BID Prescribed by: ROSI PAK on 09/03/19 1002 Dexamethasone 1 Mg/1 Ml Sue, 2 TSP PO DAILY PRN for PAIN Mix 4MG/2.5CC water Prescribed by: ROSI PAK on 09/03/19 1002 Hydrocodone/Acetaminophen 15 Ml Solution, 2-2.5 TSP PO Q4H 8 OZ BOTTLE Prescribed by: ROSI PAK on 09/03/19 1002 L.acidoph & Paracasei,B.lactis 1 Each Capsule, 1 EACH PO DAILY, (Reported) Ondansetron 4 Mg Tab.rapdis, 4 MG PO Q4H PRN for NAUSEA/VOMITING-1ST LINE Prescribed by: GARCIA LLOYD on 09/09/19 165 Promethazine HCl 25 Mg Tablet, 25 MG PO Q8H PRN for NAUSEA/VOMITING . Prescribed by: TRACIE ADAMS on 09/15/19 181 Tetracaine Sucker Ea, 1 EA MT UD PRN for PAIN Tetracain Suckers These suckers are custom made and require a prescription. Moisten the sucker first and then suck on it gently as far back in the mouth as possible for 2-3 days. You can repeadt it in about an hour. This will take the edge off but not completely numb the throat. Prescribed by: ROSI PAK on 09/03/19 1002 Patient Home Medication List Home Medication List Reviewed: Yes Review of Systems Review of Systems Constitutional: see HPI EENTM: No Symptoms Reported Respiratory: No Symptoms Reported Cardiovascular: No Symptoms Reported Gastrointestinal: See HPI; Denies Abdominal Pain; Nausea Genitourinary: No Symptoms Reported Musculoskeletal: no symptoms reported Skin: no symptoms reported Psychiatric/Neurological: No Symptoms Reported Endocrine: No Symptoms Reported Hematologic/Lymphatic: No Symptoms Reported Past Adrnaxk-Euqkej-Fwkpmb Hx Patient Social History Alcohol Use: Denies Use Recreational Drug Use: No Smoking Status: Former Smoker Former Smoker, Quit: Aug 27, 2011 2nd Hand Smoke Exposure: Yes Recent Foreign Travel: No Contact w/Someone Who Travel: No Recent Infectious Disease Expo: No Recent Hopitalizations: No Immunizations Up To Date Tetanus Booster (TDap): Less than 5yrs PED Vaccines UTD: Yes Date of Influenza Vaccine: Jul 06, 2011 Seasonal Allergies Seasonal Allergies: Yes Past Medical History Surgeries: Yes (D&C, R FOOT) Eye Surgery, Tonsillectomy Respiratory: Yes ( CHILD) Asthma Cardiac: Yes (SVT-2016 DURING ) Neurological: Yes Headaches /Migraines Reproductive Disorders: No Female Reproductive Disorders: Denies Sexually Transmitted Disease: No HIV/AIDS: No Genitourinary: Yes Bladder Infection, UTI-Chronic Gastrointestinal: No Musculoskeletal: Yes Scoliosis, Chronic Back Pain Endocrine: No HEENT: No (GLASSES/CONTACTS) Loss of Vision: Denies Hearing Impairment: Denies Cancer: No Psychosocial: No Integumentary: No Blood Disorders: Yes (ANEMIA) Adverse Reaction/Blood Tranf: No Family Medical History Asthma 19 MOTHER Drug abuse 19 MOTHER Scoliosis G8 SISTER Physical Exam Vital Signs Vital Signs - First Documented 09/15/19 13:06 Temp 36.8 Pulse 118 Resp 18 B/P (MAP) 115/74 (88) Pulse Ox 99 O2 Delivery Room Air Capillary Refill : Less Than 3 Seconds Height/Weight/BMI Height: 5'1.00" Weight: 150lbs. 8.0oz. 68.020823rd; 24.00 BMI Method:Stated General Appearance: WD/WN, no apparent distress HEENT: PERRL/EOMI, normal ENT inspection Neck: non-tender, full range of motion, other (whitish exudate over the tonsillar beds bilateral, no asymmetry to suggest cellulitis or abscess. No bleeding.) Respiratory: lungs clear, normal breath sounds, no respiratory distress, no accessory muscle use Cardiovascular: regular rate, rhythm, no murmur Gastrointestinal: normal bowel sounds, non tender, soft, other (abdomen is flat soft and nontender to palpation) Extremities: normal range of motion, non-tender Neurologic/Psychiatric: alert, normal mood/affect, oriented x 3 Skin: normal color, warm/dry Progress/Results/Core Measures Results/Orders Lab Results Laboratory Tests Test 09/15/19 13:18 09/15/19 14:19 09/15/19 16:02 09/15/19 16:40 Range/Units White Blood Count 15.2 H 4.3-11.0 10^3/uL Red Blood Count 4.78 4.35-5.85 10^6/uL Hemoglobin 13.9 11.5-16.0 G/DL Hematocrit 40 35-52 % Mean Corpuscular Volume 85 80-99 FL Mean Corpuscular Hemoglobin 29 25-34 PG Mean Corpuscular Hemoglobin Concent 34 32-36 G/DL Red Cell Distribution Width 13.9 10.0-14.5 % Platelet Count 522 H 130-400 10^3/uL Mean Platelet Volume 10.1 7.4-10.4 FL Neutrophils (%) (Auto) 80 H 42-75 % Lymphocytes (%) (Auto) 15 12-44 % Monocytes (%) (Auto) 4 0-12 % Eosinophils (%) (Auto) 1 0-10 % Basophils (%) (Auto) 0 0-10 % Neutrophils # (Auto) 12.3 H 1.8-7.8 X 10^3 Lymphocytes # (Auto) 2.3 1.0-4.0 X 10^3 Monocytes # (Auto) 0.6 0.0-1.0 X 10^3 Eosinophils # (Auto) 0.1 0.0-0.3 10^3/uL Basophils # (Auto) 0.0 0.0-0.1 10^3/uL Neutrophils % (Manual) 74 % Lymphocytes % (Manual) 18 % Monocytes % (Manual) 2 % Eosinophils % (Manual) 2 % Basophils % (Manual) 1 % Band Neutrophils 3 % Isaac Cells SLIGHT Sodium Level 134 L 137 135-145 MMOL/L Potassium Level 4.3 4.1 3.6-5.0 MMOL/L Chloride Level 109 H 109 H 98-107 MMOL/L Carbon Dioxide Level 9 *L 14 L 21-32 MMOL/L Anion Gap 16 H 14 5-14 MMOL/L Blood Urea Nitrogen 19 H 17 7-18 MG/DL Creatinine 1.29 1.11 0.60-1.30 MG/DL Estimat Glomerular Filtration Rate 51 60 BUN/Creatinine Ratio 15 15 Glucose Level 69 L 55 *L 70-105 MG/DL Calcium Level 9.1 9.2 8.5-10.1 MG/DL Corrected Calcium 8.8 8.5-10.1 MG/DL Total Bilirubin 0.3 0.1-1.0 MG/DL Aspartate Amino Transf (AST/SGOT) 40 H 5-34 U/L Alanine Aminotransferase (ALT/SGPT) 20 0-55 U/L Alkaline Phosphatase 71 40-136 U/L Total Protein 7.8 6.4-8.2 GM/DL Albumin 4.4 3.2-4.5 GM/DL Lipase 16 8-78 U/L Serum Test, Qualitative NEGATIVE NEGATIVE Urine Color YELLOW Urine Clarity CLEAR Urine pH 6.0 5-9 Urine Specific [place] 1.020 1.016-1.022 Urine Protein NEGATIVE NEGATIVE Urine Glucose (UA) NEGATIVE NEGATIVE Urine Ketones 2+ H NEGATIVE Urine Nitrite NEGATIVE NEGATIVE Urine Bilirubin NEGATIVE NEGATIVE Urine Urobilinogen 0.2 < = 1.0 MG/DL Urine Leukocyte Esterase NEGATIVE NEGATIVE Urine RBC (Auto) NEGATIVE NEGATIVE Urine RBC NONE /HPF Urine WBC NONE /HPF Urine Crystals NONE /LPF Urine Bacteria NEGATIVE /HPF Urine Casts PRESENT /LPF Urine White Blood Cell Casts 2-5 H /LPF Urine Mucus NEGATIVE /LPF Urine Culture Indicated NO Test 09/15/19 18:00 Range/Units Glucometer 158 H 70-110 MG/DL My Orders Orders - TRACIE ADAMS VISUALIZER Cbc With Automated Diff (09/15/19 13:10) Comprehensive Metabolic Panel (09/15/19 13:10) Lipase (09/15/19 13:10) Hcg,Qualitative Serum (09/15/19 13:10) Ed Iv/Invasive Line Start (09/15/19 13:10) Ns Iv 1000 Ml (Sodium Chloride 0.9%) (09/15/19 13:15) Promethazine Injection (Phenergan Injec (09/15/19 13:15) Manual Differential (09/15/19 13:18) Lactated Ringers (Lr 1000 Ml Iv Solution (09/15/19 14:00) General/Regular (09/15/19 Lunch) Ua Culture If Indicated (09/15/19 14:54) Basic Metabolic Panel (09/15/19 15:52) Fentanyl Injection (Sublimaze Injection (09/15/19 16:45) D5w 500 Ml Iv Solution (Dextrose 5% Wate (09/15/19 17:15) Ceftriaxone For Iv Use (Rocephin For I (09/15/19 17:15) Fentanyl Injection (Sublimaze Injection (09/15/19 17:30) D5w 1000 Ml Iv Solution (Dextrose 5% Dannie (09/15/19 17:13) Accucheck Stat ONCE (09/15/19 18:00) Medications Given in ED Current Medications Medications Dose Ordered Sig/Maria Teresa Route Start Time Stop Time Status Last Admin Dose Admin Ceftriaxone Sodium 1000 mg/ Sterile Water 10 ml @ 200 mls/hr ONCE ONCE IV 09/15/19 17:15 09/15/19 17:17 DC 09/15/19 17:20 200 MLS/HR Dextrose/Water 500 ml @ 1,000 mls/hr Q30M ONCE IV 09/15/19 17:15 09/15/19 17:44 DC 09/15/19 17:20 1,000 MLS/HR Dextrose/Water 1,000 ml @ ud STK-MED ONCE .ROUTE 09/15/19 17:13 09/15/19 17:17 DC 09/15/19 17:24 500 MLS/HR Fentanyl Citrate 25 mcg ONCE PRN IVP 09/15/19 16:45 09/15/19 18:26 DC 09/15/19 17:27 25 MCG Fentanyl Citrate 25 mcg ONCE PRN IVP 09/15/19 17:30 09/15/19 18:26 DC 09/15/19 16:50 25 MCG Promethazine HCl 12.5 mg ONCE ONCE IVP 09/15/19 13:15 09/15/19 13:16 DC 09/15/19 13:16 12.5 MG Vital Signs/I&O 09/15/19 09/15/19 13:06 18:17 Temp 36.8 Pulse 118 90 Resp 18 18 B/P (MAP) 115/74 (88) 117/68 Pulse Ox 99 100 O2 Delivery Room Air Blood Pressure Mean: 88 POS Departure Communication (Admissions) I spoke with Dr. Jameosn, agrees patient can go home with stronger prescription for antiemetics, they'll call her with an appointment time tomorrow to be seen tomorrow or Friday Impression Primary Impression: Dehydration Disposition: 01 HOME, SELF-CARE Condition: Stable Departure-Patient Inst. Decision time for Depature: 18:05 Referrals: [facility] (PCP/Family) Primary Care Physician Patient Instructions: Dehydration, Adult (DC) Add. Discharge Instructions: 1. Drink plenty of fluids 2. Nausea medication as directed, return to ER for any fevers or worsening symptoms. [facility] will call you tomorrow to make an appointment to be seen either tomorrow or Friday in follow-up. All discharge instructions reviewed with patient and/or family. Voiced understanding. Scripts Promethazine HCl (Promethazine Tablet) 25 Mg Tablet 25 MG PO Q8H PRN for NAUSEA/VOMITING, #14 TAB 0 Refills . Prov: TRACIE ADAMS APRN 09/15/19 Copy Copies To 1: KAROLINA JAMESON MD, PETER J APRN Sep 15, 2019 13:50 POS
[2019-09-15] MEDS ORDERED: LACTATED RINGERS 1,000 ML IV SCH (14:00)
--- NOTE | 2019-09-15 14:04 | NUR ---
TO ROOM UNABLE TO DRAW ANY BLOOD FROM IV FOR LAB DUE TO CHEM TUB HEMOLIZED. FLUIDS INFUSING
[2019-09-15 14:09] LABS: BAND NEUTROPHILS 3 %; BASOPHILS % (MANUAL) 1 %; BURR CELLS SLIGHT; EOSINOPHILS % (MANUAL) 2 %; LYMPHOCYTES % (MANUAL) 18 %; MONOCYTES % (MANUAL) 2 %; NEUTROPHILS % (MANUAL) 74 %
--- NOTE | 2019-09-15 14:41 | NUR ---
TO ROOM 1ST LITER CON'T TO INFUSE APX 200CC LEFT
[2019-09-15 14:48] LABS: ALBUMIN 4.4 GM/DL (3.2-4.5); BILIRUBIN,TOTAL 0.3 MG/DL (0.1-1.0); CALCIUM 9.1 MG/DL (8.5-10.1); CREATININE SERUM 1.29 MG/DL (0.60-1.30); POTASSIUM 4.3 MMOL/L (3.6-5.0); TOTAL PROTEIN 7.8 GM/DL (6.4-8.2)
--- NOTE | 2019-09-15 15:00 | NUR ---
DECLINED FOOD AT THIS TIME.
--- NOTE | 2019-09-15 16:00 | NUR ---
AMB TO BATHROOM TO OBTAIN UA.
[2019-09-15 16:14] LABS: BILIRUBIN,URINE NEGATIVE (NEGATIVE); CLARITY,URINE CLEAR; COLOR,URINE YELLOW; GLUCOSE, URINE (UA) NEGATIVE (NEGATIVE); KETONES,URINE 2+ (NEGATIVE); LEUKOCYTE ESTERASE ,URINE NEGATIVE (NEGATIVE); NITRITE,URINE NEGATIVE (NEGATIVE); PROTEIN,URINE NEGATIVE (NEGATIVE)
[2019-09-15 16:25] LABS: BACTERIA,URINE NEGATIVE /HPF
[2019-09-15] MEDS: fentaNYL INJECTION 100 MCG/2 ML AMP IVP PRN ×2 (16:45→17:27)
[2019-09-15 17:04] LABS: CALCIUM 9.2 MG/DL (8.5-10.1); CREATININE SERUM 1.11 MG/DL (0.60-1.30); POTASSIUM 4.1 MMOL/L (3.6-5.0)
[2019-09-15] MEDS ORDERED: D5W 1000 ML IV SOLUTION 1,000 ML ONE (17:13)
[2019-09-15] MEDS ORDERED: cefTRIAXone FOR IV USE 1,000 MG in WATER (STERILE) FOR INJECTION 10 ML IV ONE (17:15)
[2019-09-15] MEDS ORDERED: D5W 500 ML IV SOLUTION 500 ML IV ONE (17:15)
--- NOTE | 2019-09-15 17:23 | NUR ---
FOOD TRAY GIVEN
[2019-09-15] MEDS ORDERED: fentaNYL INJECTION 100 MCG/2 ML AMP IVP PRN (17:30)
--- NOTE | 2019-09-15 17:34 | NUR ---
EATING JELLO GIVEN
--- NOTE | 2019-09-15 17:48 | NUR ---
TO ROOM DANIELLE OTTO REPORTS STARTING TO FEEL BETTER
[2019-09-15] MEDS ORDERED: PROM25TA14 PO ×2 (18:06→18:16)
[2019-09-15 18:17] VITALS: BP 117/68
== END 2019-09-15 18:25 | disposition home or self-care (01) ==
LOC: EDUNIT# 13:02 → ER 13:03
DX: E86.0 Dehydration (principal); J45.909 Unspecified asthma, uncomplicated; G43.909 Migraine, unspecified, not intractable, without status migrainosus; D64.9 Anemia, unspecified; Z87.440 Personal history of urinary (tract) infections; Z90.89 Acquired absence of other organs; Z88.8 Allergy status to other drugs, medicaments and biological substances; Z77.22 Contact with and (suspected) exposure to environmental tobacco smoke (acute) (chronic)
CPT/HCPCS: 36415; 80048; 80053; 81000; 82962; 83690; 84703; 85007; 85027; 96361; 96374; 96375; 96376

== ENCOUNTER 2022-03-15 02:49 | Emergency (ER) | payer MEDICAID ==
[~2022-03-15 02:49] MED LIST changes: -MAGN400T6 PO; -METO-370 PO; -METO-387 PO; +METO50TA7 PO; +MGX400T PO; +MTP25TSR PO; +PROM25TA14 PO
[2022-03-15 03:11] LABS: BILIRUBIN,URINE NEGATIVE (NEGATIVE); CLARITY,URINE CLOUDY; COLOR,URINE YELLOW; GLUCOSE, URINE (UA) NEGATIVE (NEGATIVE); KETONES,URINE TRACE (NEGATIVE); LEUKOCYTE ESTERASE ,URINE 2+ (NEGATIVE); NITRITE,URINE NEGATIVE (NEGATIVE); PROTEIN,URINE TRACE (NEGATIVE)
[2022-03-15 03:28] LABS: BACTERIA,URINE MODERATE /HPF
[2022-03-15] MEDS ORDERED: ONDANSETRON 4 MG/2 ML (SDV) Z0FRAN IVP ONE (03:30)
[2022-03-15 03:51] LABS: BASOPHILS % (AUTO) 1 % (0-10); EOSINOPHILS % (AUTO) 0 % (0-10); HEMATOCRIT 36 % (35-52); HEMOGLOBIN 12.2 g/dL (11.5-16.0); LYMPHOCYTES # (AUTO) 1.1 10^3/uL (1.0-4.0); LYMPHOCYTES % (AUTO) 32 % (12-44); MEAN CORPUSCULAR HEMOGLOBIN 30 pg (25-34); MEAN CORPUSCULAR HGB CONC 34 g/dL (32-36); MEAN CORPUSCULAR VOLUME 87 fL (80-99); MEAN PLATELET VOLUME 9.8 fL (9.0-12.2); MONOCYTES # (AUTO) 0.2 10^3/uL (0.0-1.0); MONOCYTES % (AUTO) 4 % (0-12); NEUTROPHILS # (AUTO) 2.2 10^3/uL (1.8-7.8); NEUTROPHILS % (AUTO) 63 % (42-75); PLATELET COUNT 177 10^3/uL (130-400); WHITE BLOOD COUNT 3.5 10^3/uL (4.3-11.0)
[2022-03-15 04:05] LABS: POTASSIUM 3.2 MMOL/L (3.6-5.0)
[2022-03-15 04:07] LABS: CALCIUM 8.8 MG/DL (8.5-10.1)
[2022-03-15 04:08] LABS: TOTAL PROTEIN 6.6 GM/DL (6.4-8.2)
[2022-03-15 04:10] LABS: BILIRUBIN,TOTAL 0.5 MG/DL (0.1-1.0)
[2022-03-15 04:12] LABS: CREATININE SERUM 0.78 MG/DL (0.60-1.30)
[2022-03-15] MEDS ORDERED: LACTATED RINGERS 1,000 ML IV ONE (04:30)
--- NOTE | 2022-03-15 04:37 | ED GU-Female ---
General Chief Complaint: Abdominal/GI Problems Stated Complaint: ABD PAIN,FEVER,NAUSEA Nursing Triage Note: TO ED VIA POV AND AMBULATORY TO ROOM 7 WITH C/O FEVER, ABD PAIN, US YESTERDAY REVEALED RIGHT OVARIAN CYST. 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 Source: patient Exam Limitations: no limitations History of Present Illness Date Seen by Provider: Mar 15, 2022 Time Seen by Provider: 02:58 Initial Comments This 26-year-old young lady presents to the emergency room with escalating left lower quadrant pain. She was seen at the [facility] walk-in clinic yesterday where an ultrasound was reportedly obtained. She reports having a large 5 cm ovarian cyst on the left. She states being advised to present to the emergency room if pain became worse as she was at risk for ovarian torsion. Patient also reports having a fever up to 102 although she is afebrile at presentation. Pain is been present for 3 days and worsening. She has cramping with urination. She reports history of frequent urinary tract infections. She has also had associated yeast infection after antibiotic use. She denies any vaginal symptoms such as discharge or pain with intercourse. She reports having a pelvic exam in July when she was . Neither she nor her partner have had any other partners since her last pelvic exam. Allergies and Home Medications Allergies Coded Allergies: guaifenesin (Verified Allergy, Mild, HIVES/FEVER, 08/27/19) Patient Home Medication List Home Medication List Reviewed: Yes Amoxicillin (Amoxicillin) 250 Mg/5 Ml Susp, 1 TSP PO BID Prescribed by: ROSI PAK on 09/03/19 1002 Cefdinir (Cefdinir) 300 Mg Capsule, 300 MG PO BID Prescribed by: AMANDA CURRY on 03/15/22 0612 Dexamethasone (Decadron Intensol Oral Solution (Repackaging)) 1 Mg/1 Ml Sue, 2 TSP PO DAILY PRN for PAIN Prescribed by: ROSI PAK on 09/03/19 1002 Hydrocodone/Acetaminophen (Hydrocodon-Acetamin 7.5-325/15 ML) 15 Ml Solution, 2- 2.5 TSP PO Q4H Prescribed by: ROSI PAK on 09/03/19 1002 Hydrocodone/Acetaminophen (Hydrocodone-Acetamin 5-325 mg) 5 Mg-325 Mg Tablet, 1 TAB PO Q4H PRN for PAIN-BREAKTHROUGH Prescribed by: AMANDA CURRY on 03/15/22 0613 L.acidoph & Paracasei,B.lactis (Probiotic) 1 Each Capsule, 1 EACH PO DAILY, (Reported) Entered as Reported by: VALORIE WESTBROOK on 08/27/19 0935 Ondansetron (Ondansetron Odt) 4 Mg Tab.rapdis, 4 MG PO Q4H PRN for NAUSEA/VOMITING-1ST LINE Prescribed by: GARCIA LLOYD on 09/09/19 1654 Ondansetron (Ondansetron Odt) 4 Mg Tab.rapdis, 4 MG SL Q4H PRN for NAUSEA/VOMITING Prescribed by: AMANDA CURRY on 03/15/22 0612 Promethazine HCl (Promethazine Tablet) 25 Mg Tablet, 25 MG PO Q8H PRN for NAUSEA/VOMITING Prescribed by: TRACIE ADAMS on 09/15/19 1816 Tetracaine (Tetracaine Suckers) Kylee Ea, 1 EA MT UD PRN for PAIN Prescribed by: ROSI PAK on 09/03/19 1002 Review of Systems Review of Systems Constitutional: no symptoms reported EENTM: no symptoms reported Respiratory: no symptoms reported Cardiovascular: no symptoms reported Gastrointestinal: see HPI Genitourinary: see HPI : No Musculoskeletal: no symptoms reported Skin: no symptoms reported Psychiatric/Neurological: No Symptoms Reported Endocrine: No Symptoms Reported Hematologic/Lymphatic: No Symptoms Reported Past Ubddflm-Xvhdli-Ujrtak Hx Patient Social History Tobacco Use?: No Substance use?: No Alcohol Use?: No Immunizations Up To Date Tetanus Booster (TDap): Less than 5yrs PED Vaccines UTD: Yes Seasonal Allergies Seasonal Allergies: Yes Past Medical History Surgeries: Yes (D&C, R FOOT) Eye Surgery, Tonsillectomy Respiratory: Yes ( CHILD) Asthma Cardiac: Yes (SVT-2016 DURING ) Neurological: Yes Headaches /Migraines Reproductive Disorders: No Female Reproductive Disorders: Denies Sexually Transmitted Disease: No HIV/AIDS: No Genitourinary: Yes Bladder Infection, UTI-Chronic Gastrointestinal: No Musculoskeletal: Yes Scoliosis, Chronic Back Pain Endocrine: No HEENT: No (GLASSES/CONTACTS) Loss of Vision: Denies Hearing Impairment: Denies Cancer: No Psychosocial: No Integumentary: No Blood Disorders: Yes (ANEMIA) Adverse Reaction/Blood Tranf: No Family Medical History Asthma 19 MOTHER Drug abuse 19 MOTHER Scoliosis G8 SISTER Physical Exam Vital Signs Vital Signs - First Documented 03/15/22 02:58 Temp 37.3 Pulse 120 Resp 18 B/P (MAP) 135/85 (102) Pulse Ox 100 O2 Delivery Room Air Capillary Refill : Less Than 3 Seconds Height, Weight, BMI Height: 5'1.00" Weight: 150lbs. 8.0oz. 68.106510ri; 24.00 BMI Method:Stated General Appearance: WD/WN, mild distress HEENT: normal ENT inspection Neck: normal inspection Cardiovascular: regular rate, rhythm, no edema, no murmur Respiratory: lungs clear, normal breath sounds, no accessory muscle use Gastrointestinal: normal bowel sounds, non tender, soft, tenderness Extremities: normal inspection, no pedal edema (Left lower quadrant) Neurologic/Psychiatric: no motor/sensory deficits, alert, normal mood/affect, oriented x 3 Skin: normal color, warm/dry Progress/Results/Core Measures Suspected Sepsis SIRS Temperature: Pulse: 120 Respiratory Rate: 18 Laboratory Tests 03/15/22 03:40: White Blood Count 3.5L Blood Pressure 135 /85 Mean: 84 Laboratory Tests 03/15/22 03:40: Creatinine 0.78, Platelet Count 177, Total Bilirubin 0.5 Results/Orders Lab Results My Orders Medications Given in ED Vital Signs/I&O Capillary Refill : Less Than 3 Seconds Blood Pressure Mean: 84 Progress Note : Progress Note Patient was initially treated with fentanyl. She was later treated with Toradol. Ultrasound was obtained and revealed a hemorrhagic ovarian cyst without torsion. UTI was also identified and treated with Rocephin. She was hydrated with a liter of IV fluid. She was offered pelvic exam but declined as she feels she is at very low risk for STI. See discharge instructions for further discussion. Diagnostic Imaging Diagonstic Imaging: Ultrasound Plain Films/CT/US/NM/MRI: pelvis Comments Pelvic ultrasound discussed with press technician and report reviewed. See report below: NAME: RAJAT KHALIL MED REC#: [id number] PT STATUS: REG ER : 1995 PHYSICIAN: AMANDA HOWARD MD ADMIT DATE: 03/15/22/ER Signed Date of Exam:03/15/22 US PELVIC (NON OB)[id number] PROCEDURE: US PELVIC (NON OB) TECHNIQUE: Multiple real-time grayscale images were obtained over the pelvis in various projections transabdominally. INDICATION: 26-year-old female with left lower quadrant abdominal pain suspected ovarian torsion. Patient has a negative beta-hCG. COMPARISONS: None FINDINGS: The uterus measures 9.3 cm x 4.9 cm x 6.2 cm and is anteverted. Endometrium measures 6.7 mm in thickness. Right ovary measures 4.36 cm x 2.23 cm x 1.8 cm. There is normal flow by color Doppler. There are several small follicles. There is no evidence of torsion. The left ovary measures 4.2 cm x 5.5 cm x 6.3 cm and contains a hemorrhagic cyst measuring 3.8 cm x 3.9 cm x 4.6 cm. There is normal flow by color Doppler. There is no evidence of torsion. There is a small amount of free fluid in the cul-de-sac. IMPRESSION: 1. 3.8 cm x 3.9 cm x 4.6 cm left ovarian hemorrhagic cyst. 2. No evidence of ovarian torsion by sonographic criteria. 3. Trace amount of free pelvic fluid is felt to be physiologic. Dictated by: Dictated on workstation # [id number] Dict: 03/15/22609 Trans: 03/15/22628 [id number] Interpreted by: ALAN SHANE MD Electronically signed by: ALAN SHANE MD 03/15/22628 Departure Impression Primary Impression: Left ovarian cyst Additional Impressions: Pelvic pain Urinary tract infection Qualified Codes: N39.0 - Urinary tract infection, site not specified Disposition: HOME, SELF-CARE Condition: Improved Departure-Patient Inst. Decision time for Depature: 06:09 Referrals: [facility] (PCP/Family) Primary Care Physician Patient Instructions: Ovarian Cyst ED, Urinary Tract Infection, Adult ED Add. Discharge Instructions: Drink plenty of clear liquids to stay well-hydrated. For primary pain control you may use ibuprofen up to 600 mg every 6 hours as needed. Add hydrocodone as prescribed for pain not controlled by ibuprofen. Use Zofran (ondansetron) as prescribed for nausea or vomiting. Complete your antibiotic as prescribed. Follow-up with your primary care provider on Friday to review urine culture results. Follow-up with your women's health clinic as soon as possible. Please call today to arrange follow-up. Call with questions or concerns, and return to the ER if you have worsening symptoms despite following these instructions. All discharge instructions reviewed with patient and/or family. Voiced understanding. Scripts Hydrocodone/Acetaminophen (Hydrocodone-Acetamin 5-325 mg) 5 Mg-325 Mg Tablet 1 TAB PO Q4H PRN for PAIN-BREAKTHROUGH, #10 TAB Prov: AMANDA HOWARD MD 03/15/22 Ondansetron (Ondansetron Odt) 4 Mg Tab.rapdis 4 MG SL Q4H PRN for NAUSEA/VOMITING, #10 TAB Prov: AMANDA HOWARD MD 03/15/22 Cefdinir (Cefdinir) 300 Mg Capsule 300 MG PO BID, #14 CAP 0 Refills Prov: AMANDA HOWARD MD 03/15/22 Copy Copies To 1: AZUL RUSSO MD Copies To 2: FLIP ESPARZA JOSHUA T MD Mar 15, 2022 04:37
[2022-03-15] MEDS ORDERED: fentaNYL INJ 100 MCG/2 ML AMP IVP ONE (04:45)
[2022-03-15] MEDS ORDERED: cefTRIAXone 1 GM PRE-MIX 50 ML IV STA (05:56)
[2022-03-15] MEDS ORDERED: KETOROLAC 30 MG/ML VIAL IVP ONE (06:00)
[2022-03-15] MEDS ORDERED: ONDA4TAB11 SL (06:12)
[2022-03-15] MEDS ORDERED: CEFD300C3 PO (06:12)
[2022-03-15] MEDS ORDERED: ACHD5005 PO (06:12)
--- NOTE | 2022-03-15 06:21 | Diagnostic Imaging Report ---
PROCEDURE: US PELVIC (NON OB) TECHNIQUE: Multiple real-time grayscale images were obtained over the pelvis in various projections transabdominally. INDICATION: 26-year-old female with left lower quadrant abdominal pain suspected ovarian torsion. Patient has a negative beta-hCG. COMPARISONS: None FINDINGS: The uterus measures 9.3 cm x 4.9 cm x 6.2 cm and is anteverted. Endometrium measures 6.7 mm in thickness. Right ovary measures 4.36 cm x 2.23 cm x 1.8 cm. There is normal flow by color Doppler. There are several small follicles. There is no evidence of torsion. The left ovary measures 4.2 cm x 5.5 cm x 6.3 cm and contains a hemorrhagic cyst measuring 3.8 cm x 3.9 cm x 4.6 cm. There is normal flow by color Doppler. There is no evidence of torsion. There is a small amount of free fluid in the cul-de-sac. IMPRESSION: 1. 3.8 cm x 3.9 cm x 4.6 cm left ovarian hemorrhagic cyst. 2. No evidence of ovarian torsion by sonographic criteria. 3. Trace amount of free pelvic fluid is felt to be physiologic. Dictated by: Dictated on workstation # [id number]
[2022-03-15 06:36] VITALS: BP 105/68
== END 2022-03-15 06:39 | disposition home or self-care (01) ==
LOC: EDUNIT# 02:49 → ER 02:53
DX: N83.202 Unspecified ovarian cyst, left side (principal); N39.0 Urinary tract infection, site not specified
CPT/HCPCS: 36415; 76856; 80053; 81000; 84703; 85025; 86141; 87088